=== PATIENT | female | born 1950 | race Caucasian/White ===

== ENCOUNTER → 2017-08-03 | Outpatient (CLI) | payer MEDICARE ==
[2014-10-27 19:47] VITALS: BP 174/95
[~2017-08-03] MED LIST: HUMALIN; LISI-334 PO; LISI-338 PO; LOVA20TA2 PO
[2017-08-03 11:30] LABS: BASO % 1 % (0-3); EOS # 0.1 x10^3/uL (0.0-0.7); EOS % 3 % (0-3); HEMOGLOBIN 10.7 g/dL (12.0-15.5); LYMPH # 1.3 x10^3/uL (1.0-4.8); LYMPH % 23 % (24-48); MEAN CORPUSCULAR HEMOGLOBIN 28 pg (25-35); MEAN CORPUSCULAR HGB CONC 33 g/dL (31-37); MEAN CORPUSCULAR VOLUME 84 fL (79-100); MONO # 0.4 x10^3/uL (0.0-1.1); MONO % 8 % (0-9); NEUT # 3.6 x10^3uL (1.8-7.7); NEUT % 66 % (31-73); PLATELET COUNT 155 x10^3/uL (140-400); RED BLOOD COUNT 3.83 x10^6/uL (3.50-5.40); RED CELL DISTRIBUTION WIDTH 14.6 % (11.5-14.5); WHITE BLOOD COUNT 5.4 x10^3/uL (4.0-11.0)
[2017-08-03 11:35] LABS: ALBUMIN 3.8 g/dL (3.4-5.0); CALCIUM 9.6 mg/dL (8.5-10.1); CREATININE 1.9 mg/dL (0.6-1.0); GFR 26.4; MAGNESIUM 2.4 mg/dL (1.8-2.4); PHOSPHORUS 3.1 mg/dL (2.6-4.7)
[2017-08-05 12:08] LABS: CALCIUM PTH 9.8 mg/dL (8.7-10.3); PTH INTACT 34 pg/mL (15-65)
== END | disposition home or self-care (01) ==
LOC: LAB 09:49
PROVIDERS: ATTEND Internal Medicine Nephrology
DX: I12.9 Hypertensive chronic kidney disease with stage 1 through stage 4 chronic kidney disease, or unspecified chronic kidney disease (principal); E11.22 Type 2 diabetes mellitus with diabetic chronic kidney disease; N18.3 Chronic kidney disease, stage 3 (moderate); E55.9 Vitamin D deficiency, unspecified; D63.1 Anemia in chronic kidney disease; Z68.32 Body mass index [BMI] 32.0-32.9, adult
CPT/HCPCS: 36415; 80069; 82306; 82728; 83540; 83550; 83735; 83970; 85025

== ENCOUNTER → 2018-05-31 | Outpatient (CLI) | payer MEDICARE ==
[2014-10-27 19:47] VITALS: BP 174/95
[2018-05-31 13:07] LABS: BASO % 1 % (0-3); EOS # 0.1 x10^3/uL (0.0-0.7); EOS % 3 % (0-3); HEMATOCRIT 29.9 % (36.0-47.0); HEMOGLOBIN 9.9 g/dL (12.0-15.5); LYMPH # 1.2 x10^3/uL (1.0-4.8); LYMPH % 25 % (24-48); MEAN CORPUSCULAR HEMOGLOBIN 28 pg (25-35); MEAN CORPUSCULAR HGB CONC 33 g/dL (31-37); MEAN CORPUSCULAR VOLUME 85 fL (79-100); MONO # 0.4 x10^3/uL (0.0-1.1); MONO % 9 % (0-9); NEUT % 63 % (31-73); PLATELET COUNT 164 x10^3/uL (140-400); RED CELL DISTRIBUTION WIDTH 13.6 % (11.5-14.5); WHITE BLOOD COUNT 4.8 x10^3/uL (4.0-11.0)
[2018-05-31 13:13] LABS: ALBUMIN 3.6 g/dL (3.4-5.0); CALCIUM 9.5 mg/dL (8.5-10.1); CREATININE 2.1 mg/dL (0.6-1.0); GFR 23.5; MAGNESIUM 2.5 mg/dL (1.8-2.4); PHOSPHORUS 4.3 mg/dL (2.6-4.7); POTASSIUM 4.1 mmol/L (3.5-5.1)
[2018-06-01 06:10] LABS: CALCIUM PTH 9.9 mg/dL (8.7-10.3); PTH INTACT 27 pg/mL (15-65)
== END | disposition home or self-care (01) ==
LOC: LAB 12:19
PROVIDERS: ATTEND Internal Medicine Nephrology
DX: I12.9 Hypertensive chronic kidney disease with stage 1 through stage 4 chronic kidney disease, or unspecified chronic kidney disease (principal); E11.22 Type 2 diabetes mellitus with diabetic chronic kidney disease; N18.4 Chronic kidney disease, stage 4 (severe); D63.1 Anemia in chronic kidney disease; D50.9 Iron deficiency anemia, unspecified; E55.9 Vitamin D deficiency, unspecified; Z68.31 Body mass index [BMI] 31.0-31.9, adult
CPT/HCPCS: 36415; 80069; 82306; 82728; 83540; 83550; 83735; 83970; 85025

== ENCOUNTER → 2019-01-17 | Outpatient (CLI) | payer MEDICARE ==
[2014-10-27 19:47] VITALS: BP 174/95
[2019-01-17 13:25] LABS: BASO % 1 % (0-3); EOS # 0.1 x10^3/uL (0.0-0.7); EOS % 3 % (0-3); HEMATOCRIT 31.5 % (36.0-47.0); HEMOGLOBIN 10.3 g/dL (12.0-15.5); LYMPH # 1.1 x10^3/uL (1.0-4.8); LYMPH % 27 % (24-48); MEAN CORPUSCULAR HEMOGLOBIN 28 pg (25-35); MEAN CORPUSCULAR HGB CONC 33 g/dL (31-37); MEAN CORPUSCULAR VOLUME 87 fL (79-100); MONO # 0.4 x10^3/uL (0.0-1.1); MONO % 10 % (0-9); NEUT # 2.4 x10^3uL (1.8-7.7); NEUT % 59 % (31-73); PLATELET COUNT 138 x10^3/uL (140-400); RED BLOOD COUNT 3.64 x10^6/uL (3.50-5.40); RED CELL DISTRIBUTION WIDTH 13.8 % (11.5-14.5); WHITE BLOOD COUNT 4.1 x10^3/uL (4.0-11.0)
[2019-01-17 13:33] LABS: ALBUMIN 3.7 g/dL (3.4-5.0); CALCIUM 10.1 mg/dL (8.5-10.1); CREATININE 2.2 mg/dL (0.6-1.0); GFR 22.2; MAGNESIUM 2.9 mg/dL (1.8-2.4); PHOSPHORUS 3.6 mg/dL (2.6-4.7); POTASSIUM 4.1 mmol/L (3.5-5.1)
[2019-01-18 10:13] LABS: CALCIUM PTH 9.5 mg/dL (8.7-10.3); CREATININE PTH 1.96 mg/dL (0.57-1.00); PTH INTACT 27 pg/mL (15-65)
== END | disposition home or self-care (01) ==
LOC: LAB 12:11
PROVIDERS: ATTEND Nurse Practitioner Adult Health
DX: I12.9 Hypertensive chronic kidney disease with stage 1 through stage 4 chronic kidney disease, or unspecified chronic kidney disease (principal); E11.22 Type 2 diabetes mellitus with diabetic chronic kidney disease; N18.4 Chronic kidney disease, stage 4 (severe); D63.1 Anemia in chronic kidney disease; D50.9 Iron deficiency anemia, unspecified; E55.9 Vitamin D deficiency, unspecified; Z68.32 Body mass index [BMI] 32.0-32.9, adult
CPT/HCPCS: 36415; 80069; 82728; 83540; 83550; 83735; 83970; 85025

== ENCOUNTER → 2019-08-01 | Outpatient (CLI) | payer MEDICARE ==
[2014-10-27 19:47] VITALS: BP 174/95
[2019-08-01 10:46] LABS: ALBUMIN 3.8 g/dL (3.4-5.0); CALCIUM 9.6 mg/dL (8.5-10.1); CREATININE 1.8 mg/dL (0.6-1.0); PHOSPHORUS 3.3 mg/dL (2.6-4.7); POTASSIUM 3.8 mmol/L (3.5-5.1)
[2019-08-01 10:53] LABS: HEMATOCRIT 31.7 % (36.0-47.0); HEMOGLOBIN 10.2 g/dL (12.0-15.5)
[2019-08-01 17:17] LABS: CREATININE,RANDOM URINE 85.4 mg/dL (Not Establ.)
[2019-08-01 19:07] LABS: CREATININE PTH 1.77 mg/dL (0.57-1.00); PTH INTACT 34 pg/mL (15-65)
[2019-08-02 00:07] LABS: MICROALB RD UR 39.3 ug/mL (Not Estab.)
== END | disposition home or self-care (01) ==
LOC: LAB 09:13
PROVIDERS: ATTEND Internal Medicine Nephrology
DX: I12.9 Hypertensive chronic kidney disease with stage 1 through stage 4 chronic kidney disease, or unspecified chronic kidney disease (principal); N18.4 Chronic kidney disease, stage 4 (severe); Z68.31 Body mass index [BMI] 31.0-31.9, adult
CPT/HCPCS: 36415; 80069; 82043; 82306; 82570; 83970; 84156; 85014; 85018

== ENCOUNTER → 2020-01-16 | Outpatient (CLI) | payer MEDICARE ==
[2014-10-27 19:47] VITALS: BP 174/95
[2020-01-16 11:44] LABS: ALBUMIN 3.7 g/dL (3.4-5.0); CALCIUM 9.5 mg/dL (8.5-10.1); CREATININE 2.2 mg/dL (0.6-1.0); GFR 22.1; PHOSPHORUS 4.2 mg/dL (2.6-4.7); POTASSIUM 3.5 mmol/L (3.5-5.1)
[2020-01-16 11:46] LABS: HEMATOCRIT 27.8 % (36.0-47.0); HEMOGLOBIN 9.1 g/dL (12.0-15.5)
[2020-01-16 15:53] LABS: CREATININE,RANDOM URINE 96.6 mg/dL (Not Establ.)
[2020-01-16 17:07] LABS: MICROALB RD UR 17.4 ug/mL (Not Estab.)
== END | disposition home or self-care (01) ==
LOC: LAB 10:22
PROVIDERS: ATTEND Nurse Practitioner Adult Health
DX: I12.9 Hypertensive chronic kidney disease with stage 1 through stage 4 chronic kidney disease, or unspecified chronic kidney disease (principal); N18.4 Chronic kidney disease, stage 4 (severe); D63.1 Anemia in chronic kidney disease; E11.22 Type 2 diabetes mellitus with diabetic chronic kidney disease; E55.9 Vitamin D deficiency, unspecified; Z79.4 Long term (current) use of insulin; Z68.32 Body mass index [BMI] 32.0-32.9, adult
CPT/HCPCS: 36415; 80069; 82043; 82570; 82728; 83540; 83550; 84156; 85014; 85018

== ENCOUNTER → 2020-03-14 | Outpatient (CLI) | payer MEDICARE ==
[2014-10-27 19:47] VITALS: BP 174/95
[2020-03-14 10:53] LABS: HEMATOCRIT 22.9 % (36.0-47.0); HEMOGLOBIN 7.3 g/dL (12.0-15.5)
== END | disposition home or self-care (01) ==
LOC: LAB 09:49
PROVIDERS: ATTEND Nurse Practitioner Adult Health
DX: I12.9 Hypertensive chronic kidney disease with stage 1 through stage 4 chronic kidney disease, or unspecified chronic kidney disease (principal); N18.4 Chronic kidney disease, stage 4 (severe); E11.22 Type 2 diabetes mellitus with diabetic chronic kidney disease; D63.1 Anemia in chronic kidney disease; E55.9 Vitamin D deficiency, unspecified; Z79.4 Long term (current) use of insulin
CPT/HCPCS: 36415; 82728; 83540; 83550; 85014; 85018

== ENCOUNTER 2020-03-31 07:23 | Emergency (ER) | payer MEDICARE ==
[~2020-03-31] VITALS: Ht 165.1 cm; Wt 95.5 kg
[2020-03-31 07:36] VITALS: BP 145/65
--- NOTE | 2020-03-31 07:36 | PHYS DOC ---
Past History Past Medical History: Other Past Surgical History: Other Alcohol Use: None Drug Use: None General Adult EDM: Chief Complaint: WRIST PAIN HPI: HPI: History obtained from the patient. Patient is a 69-year-old female who presents with chief complaint of right wrist pain status post mechanical fall 4 days ago. She states she was attempting to sit down in her chair when the chair slipped out from underneath her. States she fell backwards bracing herself with her right hand. She has noted right wrist pain and swelling. She has tried Tylenol at home with minimal relief. Denies striking her head or LOC. States she has been ambulatory. She is right-handed. States her usage of right hand has been limited due to the pain and swelling. States pain is worse over the dorsal aspect of her right wrist. She notes the pain is aching in nature. She states movement makes the pain worse. Denies numbness, tingling, weakness. No other complaints. Review of Systems: Review of Systems: Constitutional: Denies fever or chills Eyes: Denies change in visual acuity HENT: Denies nasal congestion or sore throat Respiratory: Denies cough or shortness of breath Cardiovascular: Denies chest pain or edema GI: Denies abdominal pain, nausea, vomiting, bloody stools or diarrhea : Denies dysuria Musculoskeletal: Positive for wrist pain Integument: Denies rash Neurologic: Denies headache, focal weakness or sensory changes Endocrine: Denies polyuria or polydipsia Lymphatic: Denies swollen glands Psychiatric: Denies depression or anxiety Heart Score: Risk Factors: Risk Factors: DM, Current or recent (<one month) smoker, HTN, HLP, family history of CAD, obesity. Risk Scores: Score 0 - 3: 2.5% MACE over next 6 weeks - Discharge Home Score 4 - 6: 20.3% MACE over next 6 weeks - Admit for Clinical Observation Score 7 - 10: 72.7% MACE over next 6 weeks - Early Invasive Strategies Allergies: Allergies: Allergies Coded Allergies Type Severity Reaction Last Updated Verified No Known Drug Allergies 10/27/14 No Physical Exam: PE: Constitutional: Well developed, well nourished, no acute distress, non-toxic appearance. [] HENT: Normocephalic, atraumatic, bilateral external ears normal, oropharynx moist, no oral exudates, nose normal. [] Eyes: PERRLA, EOMI, conjunctiva normal, no discharge. [] Neck: Normal range of motion, no tenderness, supple, no stridor. [] Cardiovascular:Heart rate regular rhythm, no murmur [] Lungs & Thorax: Bilateral breath sounds clear to auscultation [] Abdomen: soft, no tenderness, no masses, no pulsatile masses. [] Skin: Warm, dry, no erythema, no rash. [] Back: No tenderness, no CVA tenderness. [] Extremities: Swelling noted to the dorsum of the right hand and wrist. Tenderness palpation over the distal ulna and radius. Cardinal hand movements intact. +2-4 radial pulse. No elbow pain or swelling noted. Neurologic: Alert and oriented X 3, normal motor function, normal sensory function, no focal deficits noted. [] Psychologic: Affect normal, judgement normal, mood normal. [] Current Patient Data: Vital Signs: Vital Signs Date Time Temp Pulse Resp B/P (MAP) Pulse Ox O2 Delivery O2 Flow Rate FiO2 03/31/20 07:36 97.9 63 18 145/65 (08) 94 EKG: EKG: [] Radiology/Procedures: Radiology/Procedures: [place] [address] IMAGING REPORT Signed PATIENT: EARLENE MONZON I ACCOUNT: [id number] : 1950 LOCATION: ER AGE: 69 SEX: F EXAM STATUS: REG ER ORD. PHYSICIAN: CELSO LOVELL DO REASON: r wrist pain s/p fall PROCEDURE: WRIST 3V RIGHT EXAMINATION: WRIST 3V RIGHT CLINICAL HISTORY: Right wrist pain following fall TECHNIQUE: WRIST 3V RIGHT Number of Images/Views: 3 COMPARISON: None FINDINGS: Mildly comminuted fracture through the distal radial metaphysis with mild dorsal impaction. Minimally displaced ulnar styloid fracture. Carpal alignment maintained. Mild soft tissue swelling. Vascular calcifications. IMPRESSION: Mildly comminuted and impacted distal radius fracture. Minimally displaced ulnar styloid fracture. Electronically signed by: Lopez Ashford DO (03/31/2020 7:55 AM) [id number] DICTATED AND SIGNED BY: LOPEZ ASHFORD DO DATE: 03/31/20 0755 CC: WALT NOLASCO; CELSO LOVELL DO ~ [] Course & Med Decision Making: Course & Med Decision Making Pertinent Labs and Imaging studies reviewed. (See chart for details) [] Patient is a right-handed 69-year-old female who presents with chief complaint of right wrist pain status post fall 4 days ago. Noted to have a mildly comminuted and minimally displaced distal radius fracture with ulnar styloid fracture. Patient was placed in sugar tong splint. Given the minimal displacement reduction was not indicated in the emergency department. I did discuss the case with orthopedic surgeon . They recommended clinic follow-up. She will be provided a resource to follow-up with him in clinic. Return precautions discussed and understood. She will be discharged home with pain medication. Instructed to follow-up with her primary care physician in the next 2 to 3 days. Stable for discharge home. Dragon Disclaimer: Dragon Disclaimer: This electronic medical record was generated, in whole or in part, using a voice recognition dictation system. Departure Departure: Impression: Primary Impression: Distal radius fracture, right Qualified Codes: S52.501A - Unspecified fracture of the lower end of right radius, initial encounter for closed fracture Additional Impression: Fracture of ulnar styloid Qualified Codes: S52.614A - Nondisplaced fracture of right ulna styloid process, initial encounter for closed fracture Disposition: 01 HOME/RESIDENCE PRIOR TO ADM Condition: STABLE Referrals: WALT NOLASCO (PCP) SUNG WOOD II, MD Patient Instructions: Colles Fracture Additional Instructions: Please call orthopedic surgery clinic tomorrow to schedule appointment. Scripts Hydrocodone Bit/Acetaminophen (NORCO 5-325 TABLET) 1 Each Tablet 1-2 TAB PO Q4-6HRS for pain, #10 TAB Prov: CELSO LOVELL DO 03/31/20 CELSO LOVELL DO Mar 31, 2020 07:36
[2020-03-31] MEDS ORDERED: oxyCODONE IR 5 MG TABLET PO ONE (07:45)
--- NOTE | 2020-03-31 07:58 | RAD ---
EXAMINATION: WRIST 3V RIGHT CLINICAL HISTORY: Right wrist pain following fall TECHNIQUE: WRIST 3V RIGHT Number of Images/Views: 3 COMPARISON: None FINDINGS: Mildly comminuted fracture through the distal radial metaphysis with mild dorsal impaction. Minimally displaced ulnar styloid fracture. Carpal alignment maintained. Mild soft tissue swelling. Vascular calcifications. IMPRESSION: Mildly comminuted and impacted distal radius fracture. Minimally displaced ulnar styloid fracture. Electronically signed by: Lopez Covington DO (03/31/2020 7:55 AM) [id number]
[2020-03-31] MEDS ORDERED: HYDR-3165 PO (08:05)
== END 2020-03-31 08:27 | disposition home or self-care (01) ==
LOC: ER 07:23
DX: S52.501A Unspecified fracture of the lower end of right radius, initial encounter for closed fracture (principal); S52.611A Displaced fracture of right ulna styloid process, initial encounter for closed fracture; W18.39XA Other fall on same level, initial encounter; Y93.89 Activity, other specified; Y92.89 Other specified places as the place of occurrence of the external cause; Y99.8 Other external cause status
CPT/HCPCS: 29125; 73110; 82947; 99283; 99284

== ENCOUNTER 2020-06-03 04:11 | Emergency (ER) | payer MEDICARE ==
[~2020-06-03] VITALS: Ht 165.1 cm; Wt 75.0 kg
[~2020-06-03 04:11] MED LIST changes: +HYDR-3165 PO
--- NOTE | 2020-06-03 04:17 | PHYS DOC ---
Past History Past Medical History: Anemia, Anxiety, Arthritis, Diabetes, High Cholesterol, Hypertension, UTI, Other Additional Past Medical Histor: blind (JUDY NDIAYE MD) Past Medical History: Diabetes (KAYLEN MICHEL MD) Past Surgical History: Hip Replacement, Other Past Surgical History Multiple orthopedic surgeries-right wrist, right hip, (JUDY NDIAYE MD) Alcohol Use: None Drug Use: None (JUDY NDIAYE MD) Drug Use: None (KAYLEN MICHEL MD) General Adult EDM: Chief Complaint: SYNCOPE HPI: HPI: ".. I got up and was on the way to the bathroom.. and that is the last thing I remember.. the next thing I remember I was on the floor and my Rt. knee was hurting..." Patient is a 69 year old female who presents with above hx and complaints of syncope. Patient has complaints of right leg pain and has obvious edema to right knee. Was able to do a straight leg lift on the right with discomfort. Distal capillary refill is equal to left. Patient denies any changes of her chronic meds. Does have past medical history of osteoporosis, anemia, thrombocytopenia, diabetes, urinary tract infections, coronary artery disease, and deconditioning. Patient previously followed with Dr. Mcneil. but now follows with Dr. Cespedes. Patient has followed with for previous orthopedic surgeries. Patient denies any recent travel or specific ill contacts. (JUDY NDIAYE MD) HPI: 69-year-old female who went to go to the bathroom this evening had a syncope event and landed on her right knee. Patient describes moderate to severe right knee pain that is worse with palpation and range of motion. Pain is nonradiating. Pain described as throbbing in nature and constant. (KAYLEN MICHEL MD) Review of Systems: Review of Systems: Constitutional: Denies fever or chills Eyes: Denies change in visual acuity HENT: Denies nasal congestion or sore throat Respiratory: Denies cough or shortness of breath Cardiovascular: Denies chest pain or edema . Complaints of syncope GI: Denies abdominal pain, nausea, vomiting, bloody stools or diarrhea : Denies dysuria Musculoskeletal: History of chronic joint pain. Complains of acute pain in her right knee Integument: Denies rash Neurologic: Denies headache, focal weakness or sensory changes Endocrine: Denies polyuria or polydipsia Lymphatic: Denies swollen glands Psychiatric: History of anxiety (JUDY NDIAYE MD) Review of Systems: Constitutional: Denies fever or chills Eyes: Denies change in visual acuity HENT: Denies sore throat Respiratory: Denies cough or shortness of breath Cardiovascular: Denies chest pain or edema GI: Denies abdominal pain, nausea, vomiting, or diarrhea : Denies hematuria Musculoskeletal: Denies back pain but has right knee pain Integument: Denies rash Neurologic: Denies headache or focal weakness Psychiatric: Denies depression or anxiety (KAYLEN MICHEL MD) Family History: Family History: Noncontributory to presentation (JUDY NDIAYE MD) Current Medications: Current Meds: See nursing for home meds (JUDY NDIAYE MD) Current Meds: Current Medications Lactated Ringer's 1,000 ml @ 100 mls/hr Q10H IV Last administered on 06/03/20at 05:08; Start 06/03/20 at 05:00; Stop 06/03/20 at 14:59 Morphine Sulfate (Morphine 10mg Syringe) 10 mg 1X ONCE SQ Last administered on 06/03/20at 05:09; Start 06/03/20 at 05:00; Stop 06/03/20 at 05:01; Status DC Ceftriaxone Sodium 1 gm/ Sodium Chloride 50 ml @ 100 mls/hr 1X ONCE IV ; Start 06/03/20 at 07:00; Stop 06/03/20 at 07:29 Sodium Chloride 50 ml @ As Directed STK-MED ONCE .ROUTE ; Start 06/03/20 at 06:3 3; Stop 06/03/20 at 06:33; Status DC Ceftriaxone Sodium (Rocephin) 1 gm STK-MED ONCE .ROUTE ; Start 06/03/20 at 06:33; Stop 06/03/20 at 06:33; Status DC Active Scripts Active Haslet 5-325 Tablet (Hydrocodone Bit/Acetaminophen) 1 Each Tablet 1-2 Tab PO Q4- 6HRS Reported Lisinopril 5 Mg Tablet 1 Tab PO DAILY [humalin pen 70/30] TID Lovastatin 20 Mg Tablet 1 Tab PO DAILY (KAYLEN MICHEL MD) Allergies: Allergies: Allergies Coded Allergies Type Severity Reaction Last Updated Verified No Known Drug Allergies 5/2/15 No (JUDY NDIAYE MD) Physical Exam: PE: Constitutional: In moderate acute distress, non-toxic appearance. [] HENT: Normocephalic, atraumatic, bilateral external ears normal, oropharynx moist, no oral exudates, nose normal. [] Eyes: PERRLA, EOMI, conjunctiva normal, no discharge. [] Neck: Normal range of motion, no tenderness, supple, no stridor. [] Cardiovascular: Tachycardia heart rate regular rhythm, no murmur, PMI to the left Lungs & Thorax: Bilateral breath sounds equal apex with scattered wheezes and basilar crackles on auscultation [] Abdomen: Bowel sounds normal, soft, no tenderness, no masses, no pulsatile masses. Obese. Skin: Warm, dry, no erythema, no rash. Poor turgor Back: No tenderness, no CVA tenderness. [] Extremities: Right knee tenderness, no cyanosis, no clubbing, ROM decreased in right knee, bilateral ankle edema. Marked edema right knee Neurologic: Alert and oriented X 3, moves all extremities on request, does have distal sensory, no new focal deficits noted. [] Psychologic: Affect anxious, judgement normal, mood normal. [] (JUDY NDIAYE MD) PE: Constitutional: Well developed, well nourished, no acute distress, non-toxic appearance. HENT: No trismus, external ears normal Eyes: Conjunctiva clear, Neck: Normal range of motion, no tenderness, supple, no stridor. Cardiovascular: Regular rate/rhythm, peripheral pulse intact, PRICER intact Lungs & Thorax: No respiratory distress Abdomen: No distension Skin: Diffuse: Intact, no rash Back: Full ROM Extremities: Significant tenderness and swelling to right knee and proximal tib- fib area, limited range of motion due to pain. Compartments soft. Neurovascular intact distally. Neurologic: Alert and oriented X 3, normal motor function, , no focal deficits noted. Psychologic: Affect normal, judgement normal, mood normal. (KAYLEN MICHEL MD) Current Patient Data: Labs: Laboratory Tests Test 06/03/20 04:40 06/03/20 05:04 06/03/20 05:15 White Blood Count 7.4 x10^3/uL Red Blood Count 3.63 x10^6/uL Hemoglobin 9.9 g/dL Hematocrit 30.9 % Mean Corpuscular Volume 85 fL Mean Corpuscular Hemoglobin 27 pg Mean Corpuscular Hemoglobin Concent 32 g/dL Red Cell Distribution Width 19.4 % Platelet Count 149 x10^3/uL Neutrophils (%) (Auto) 76 % Lymphocytes (%) (Auto) 13 % Monocytes (%) (Auto) 9 % Eosinophils (%) (Auto) 1 % Basophils (%) (Auto) 1 % Neutrophils # (Auto) 5.6 x10^3uL Lymphocytes # (Auto) 1.0 x10^3/uL Monocytes # (Auto) 0.7 x10^3/uL Eosinophils # (Auto) 0.1 x10^3/uL Basophils # (Auto) 0.0 x10^3/uL Platelet Estimate Adequate Anisocytosis Slight Microcytosis Slight Prothrombin Time 10.4 SEC Prothromb Time International Ratio 1.0 Activated Partial Thromboplast Time 24 SEC D-Dimer (Ching) 17.08 mg/L Sodium Level 144 mmol/L Potassium Level 3.6 mmol/L Chloride Level 104 mmol/L Carbon Dioxide Level 31 mmol/L Anion Gap 9 Blood Urea Nitrogen 47 mg/dL Creatinine 2.0 mg/dL Estimated GFR (Cockcroft-Gault) 24.7 Glucose Level 179 mg/dL Calcium Level 9.5 mg/dL Magnesium Level 1.9 mg/dL Total Bilirubin 0.3 mg/dL Direct Bilirubin 0.1 mg/dL Aspartate Amino Transf (AST/SGOT) 29 U/L Alanine Aminotransferase (ALT/SGPT) 26 U/L Alkaline Phosphatase 87 U/L Creatine Kinase 276 U/L Troponin I Quantitative 0.137 ng/mL IQ-Vim-Z-Type Natriuretic Peptide 835 pg/mL Total Protein 7.7 g/dL Albumin 3.6 g/dL Lipase 94 U/L Glucose (Fingerstick) 168 mg/dL Urine Collection Type U cath Urine Color Yellow Urine Clarity Cloudy Urine pH 7.0 Urine Specific [place] 1.020 Urine Protein 100 mg/dl Urine Glucose (UA) 100 mg/dL Urine Ketones (Stick) Neg mg/dL Urine Blood Large Urine Nitrite Neg Urine Bilirubin Neg Urine Urobilinogen Dipstick 0.2 mg/dL Urine Leukocyte Esterase Large Urine RBC 1-2 /HPF Urine WBC >40 /HPF Urine Squamous Epithelial Cells None /LPF Urine Bacteria Many /HPF Urine Opiates Screen Neg Urine Methadone Screen Neg Urine Barbiturates Neg Urine Phencyclidine Screen Neg Urine Amphetamine/Methamphetamine Neg Urine Benzodiazepines Screen Neg Urine Cocaine Screen Neg Urine Cannabinoids Screen Neg Urine Ethyl Alcohol Neg Current Medications Medications (Trade) Dose Ordered Sig/April Route PRN Reason Start Time Stop Time Status Last Admin Dose Admin Lactated Ringer's 1,000 ml @ 100 mls/hr Q10H IV 06/03/20 05:00 06/03/20 14:59 06/03/20 05:08 Morphine Sulfate (Morphine 10mg Syringe) 10 mg 1X ONCE SQ 06/03/20 05:00 06/03/20 05:01 DC 06/03/20 05:09 Ceftriaxone Sodium 1 gm/ Sodium Chloride 50 ml @ 100 mls/hr 1X ONCE IV 06/03/20 07:00 06/03/20 07:29 Sodium Chloride 50 ml @ As Directed STK-MED ONCE .ROUTE 06/03/20 06:33 06/03/20 06:33 DC Ceftriaxone Sodium (Rocephin) 1 gm STK-MED ONCE .ROUTE 06/03/20 06:33 06/03/20 06:33 DC Vital Signs: Vital Signs Date Time Temp Pulse Resp B/P (MAP) Pulse Ox O2 Delivery O2 Flow Rate FiO2 06/03/20 05:09 18 98 Room Air 06/03/20 04:11 97.8 86 110/53 (72) (KAYLEN MICHEL MD) EKG: EKG: Pending at shift change [] (JUDY NDIAYE MD) EKG: EKG interpreted by ks normal sinus rhythm with rate 86 normal axis, first-degree AV block, nonspecific ST changes (KAYLEN MICHEL MD) Radiology/Procedures: Radiology/Procedures: X-rays pending at shift change[] (JUDY NDIAYE MD) Radiology/Procedures: [place] [address] IMAGING REPORT Signed PATIENT: EARLENE MONZON I ACCOUNT: [id number] : 1950 LOCATION: ER AGE: 69 SEX: F EXAM STATUS: REG ER ORD. PHYSICIAN: JUDY NDIAYE MD REASON: fall, pain PROCEDURE: PORTABLE CHEST 1V PORTABLE CHEST 1V History: Reason: fall, pain / Spl. Instructions: / History: Comparison: October 27, 2014 Findings: No consolidation or pleural effusion. Normal heart size. No pneumothorax. Glenohumeral DJD. Impression: 1. No acute cardiopulmonary process. Electronically signed by: Ricky Ding DO (06/03/2020 6:37 AM) [facility] DICTATED AND SIGNED BY: RICKY DING DO DATE: 06/03/20636 CC: KAYLEN MICHEL MD; JUDY NDIAYE MD; WALT CESPEDES ~[facility] [address] [place] [address] IMAGING REPORT Signed PATIENT: EARLENE MONZON I ACCOUNT: [id number] : 1950 LOCATION: ER AGE: 69 SEX: F EXAM STATUS: REG ER ORD. PHYSICIAN: JUDY NDIAYE MD REASON: fall, pain PROCEDURE: KNEE RIGHT 3V TIBIA FIBULA RIGHT, KNEE RIGHT 3V History: Reason: fall, pain / Spl. Instructions: / History: Technique: 2 views right tibia and fibula and 3 views right knee. Comparison: None. Findings: Acute comminuted right proximal tibial fracture. Comminuted right proximal fibular fracture. There is adjacent soft tissue swelling. No significant joint effusion. Mild patellar spurring. Vascular calcifications. Internal fixation prior right distal fibular and medial malleolus fractures. Impression: 1. Acute comminuted right proximal tibial and fibular fractures. Electronically signed by: Ricky Ding DO (06/03/2020 6:37 AM) [facility] DICTATED AND SIGNED BY: RICKY DING DO DATE: 06/03/20636 CC: KAYLEN MICHEL MD; JUDY NDIAYE MD; WALT CESPEDES [facility] [address] [address] IMAGING REPORT Signed PATIENT: EARLENE MONZON I ACCOUNT: [id number] : 1950 LOCATION: ER AGE: 69 SEX: F EXAM STATUS: REG ER ORD. PHYSICIAN: KAYLEN MICHEL MD REASON: RIGHT PROX TIB/FIB FX. EVALUATE THE FRACTURE PROCEDURE: CT LOWER EXTREMITY WO RIGHT CT LOWER EXTREMITY WO RIGHT DATE: 06/03/2020 6:29 AM INDICATION: Reason: RIGHT PROX TIB/FIB FX. EVALUATE THE FRACTURE / Spl. Instructions: / History: TECHNIQUE: Multidetector helical CT scan through the right knee was performed. Coronal and sagittal 2 D reconstructions were generated. Images were reviewed on the PACS workstation at soft tissue and osseous window settings. One or more of the following individualized dose reduction techniques were utilized for this examination: 1. Automated exposure control 2. Adjustment of the mA and/or kV according to patient size 3. Use of iterative reconstruction technique COMPARISON: Radiograph 06/03/2020 FINDINGS: Acute comminuted fracture of the proximal tibial metaphysis with minimal apex anterior angulation and mild displacement of several fracture fragments. A nondisplaced fracture line extends superiorly into the intercondylar eminence. Acute proximal fibular fracture with mild impaction/displacement. Additional chronic healed proximal fibular fracture. Small joint effusion. Mild tricompartmental degenerative changes. Atherosclerotic vascular calcifications. IMPRESSION: 1. Acute comminuted and mildly displaced proximal tibial metaphysis fracture. A nondisplaced fracture line extends into the intercondylar eminence. 2. Acute mildly displaced proximal fibular fracture. Electronically signed by: Marcy Rey MD (06/03/2020 7:29 AM) [id number] DICTATED AND SIGNED BY: MARCY REY MD DATE: 06/03/20 0729 CC: KAYLEN MICHEL MD; WALT CESPEDES ~MTH0 0 (KAYLEN MICHEL MD) Heart Score: HEART Score for Chest Pain: HEART Score for Chest Pain Response (Comments) Value History Moderately Suspicious 1 ECG Nonspecific Repolarizatio 1 Age > 65 2 Risk Factors 1 or 2 Risk Factors 1 Troponin >1-<3x Normal Limit 1 Total 6 Risk Factors: Risk Factors: DM, Current or recent (<one month) smoker, HTN, HLP, family history of CAD, obesity. Risk Scores: Score 0 - 3: 2.5% MACE over next 6 weeks - Discharge Home Score 4 - 6: 20.3% MACE over next 6 weeks - Admit for Clinical Observation Score 7 - 10: 72.7% MACE over next 6 weeks - Early Invasive Strategies (JUDY NDIAYE MD) Course & Med Decision Making: Course & Med Decision Making Pertinent Labs and Imaging studies reviewed. (See chart for details) Discussed presentation testing and treatment plan with at shift change. He will make disposition of Pt. Impression: 1. Syncope 2. Right knee- Injury-suspect comminuted fracture tib-fib proximal 3. UTI 4. Elevated D-dimer 17.08 5. Anemia Hg. 9.9 [] (JUDY NDIAYE MD) Course & Med Decision Making 69-year-old female presents with a syncopal event. Patient initially seen by Dr. Ndiaye signed out to me. On my assessment patient only complains of right knee pain and swelling. Patient denies any chest pain or shortness of breath. Patient denies hitting her head and declines a head CT at this time. Patient is neurologically at her baseline. X-ray of the right knee reveals a proximal tibia and fibular fracture. I discussed the case with Dr. Cannon who will admit the patient at [facility]. I discussed the case with Dr. Steel who will consult. Knee immobilizer and CT has been ordered of the right knee. Discussed with Dr. Cannon the patient's elevated D-dimer and need for possible VQ scan. Patient will be unable to get a CT angiogram due to her elevated BUN and creatinine. Patient has elevated troponin, this could be due to her renal insufficiency. Due to the fact she may be a surgical candidate, aspirin has been held. Knee immobilizer was applied by nursing staff to the right leg. Patient reassessed multiple times. Patient declining pain meds at this time. 9:45 AM: Reassessed. Patient declining pain meds. Waiting on bed at [facility]. (KAYLEN MICHEL MD) Elton Disclaimer: Elton Disclaimer: This electronic medical record was generated, in whole or in part, using a voice recognition dictation system. (JUDY NDIAYE MD) Departure Departure: Impression: Primary Impression: Fracture of proximal end of right tibia Additional Impressions: Fracture of proximal end of right fibula Syncope Urinary tract infection Chronic renal failure Disposition: 02 DC/TRF OTHER SHORT TERM HOS ([place]) Condition: STABLE Referrals: WALT CESPEDES (PCP) Elton Disclaimer This chart was dictated in whole or in part using Voice Recognition software in a busy, high-work load, and often noisy Emergency Department environment. It may contain unintended and wholly unrecognized errors or omissions. (JUDY NDIAYE MD) Elton Disclaimer This chart was dictated in whole or in part using Voice Recognition software in a busy, high-work load, and often noisy Emergency Department environment. It may contain unintended and wholly unrecognized errors or omissions. (JUDY NDIAYE MD) JUDY NDIAYE MD Jun 03, 2020 04:17 KAYLEN MICHEL MD Jun 03, 2020 06:42
[2020-06-03] MEDS ORDERED: IV RINGERS SOLUTION,LACTATED 1,000 ML IV SCH (05:00)
[2020-06-03] MEDS ORDERED: MORPHINE SULFATE 10 MG/ML SYRINGE. SQ ONE (05:00)
[2020-06-03 05:05] LABS: BASO % 1 % (0-3); EOS # 0.1 x10^3/uL (0.0-0.7); EOS % 1 % (0-3); HEMATOCRIT 30.9 % (36.0-47.0); HEMOGLOBIN 9.9 g/dL (12.0-15.5); LYMPH % 13 % (24-48); MEAN CORPUSCULAR HEMOGLOBIN 27 pg (25-35); MEAN CORPUSCULAR HGB CONC 32 g/dL (31-37); MEAN CORPUSCULAR VOLUME 85 fL (79-100); MONO # 0.7 x10^3/uL (0.0-1.1); MONO % 9 % (0-9); NEUT # 5.6 x10^3uL (1.8-7.7); NEUT % 76 % (31-73); PLATELET COUNT 149 x10^3/uL (140-400); RED BLOOD COUNT 3.63 x10^6/uL (3.50-5.40); RED CELL DISTRIBUTION WIDTH 19.4 % (11.5-14.5); WHITE BLOOD COUNT 7.4 x10^3/uL (4.0-11.0)
[2020-06-03 05:18] LABS: CALCIUM 9.5 mg/dL (8.5-10.1); GFR 24.7; POTASSIUM 3.6 mmol/L (3.5-5.1)
[2020-06-03 05:22] LABS: ANISOCYTOSIS SLIGHT; MICROCYTOSIS SLIGHT
[2020-06-03 05:23] LABS: PLT ESTIMATE ADEQUATE (ADEQUATE)
[2020-06-03 05:31] LABS: ALBUMIN 3.6 g/dL (3.4-5.0); DIRECT BILIRUBIN 0.1 mg/dL (0.0-0.2); MAGNESIUM 1.9 mg/dL (1.8-2.4); TOTAL BILIRUBIN 0.3 mg/dL (0.2-1.0); TOTAL PROTEIN 7.7 g/dL (6.4-8.2)
[2020-06-03 05:42] LABS: BARBITURATES NEG (NEG); BENZODIAZEPINES NEG (NEG); CANNABINOIDS NEG (NEG); COCAINE NEG (NEG); METHADONE NEG (NEG); OPIATES NEG (NEG); PHENCYCLIDINE NEG (NEG)
[2020-06-03 05:43] LABS: BILIRUBIN,URINE NEG (NEG); CLARITY,URINE CLOUDY; COLOR,URINE YELLOW; GLUCOSE,URINE 100 mg/dL (NEG); NITRITE,URINE NEG (NEG); UROBILINOGEN,URINE 0.2 mg/dL (0.2 mg/dL)
[2020-06-03 05:44] LABS: BACTERIA,URINE MANY /HPF (0-FEW); WBC,URINE >40 /HPF (0-4)
[2020-06-03 05:47] LABS: AMPHETAMINE/METHAMPHETAMINE NEG (NEG)
[2020-06-03] MEDS ORDERED: IV NORMAL SALINE 50ML 50 ML ONE (06:33)
[2020-06-03] MEDS ORDERED: cefTRIAXone SODIUM 1 GM VIAL ONE (06:33)
--- NOTE | 2020-06-03 06:39 | RAD ---
TIBIA FIBULA RIGHT, KNEE RIGHT 3V History: Reason: fall, pain / Spl. Instructions: / History: Technique: 2 views right tibia and fibula and 3 views right knee. Comparison: None. Findings: Acute comminuted right proximal tibial fracture. Comminuted right proximal fibular fracture. There is adjacent soft tissue swelling. No significant joint effusion. Mild patellar spurring. Vascular calcifications. Internal fixation prior right distal fibular and medial malleolus fractures. Impression: 1. Acute comminuted right proximal tibial and fibular fractures. Electronically signed by: Ricky Ding DO (06/03/2020 6:37 AM) [facility]
--- NOTE | 2020-06-03 06:39 | RAD ---
TIBIA FIBULA RIGHT, KNEE RIGHT 3V History: Reason: fall, pain / Spl. Instructions: / History: Technique: 2 views right tibia and fibula and 3 views right knee. Comparison: None. Findings: Acute comminuted right proximal tibial fracture. Comminuted right proximal fibular fracture. There is adjacent soft tissue swelling. No significant joint effusion. Mild patellar spurring. Vascular calcifications. Internal fixation prior right distal fibular and medial malleolus fractures. Impression: 1. Acute comminuted right proximal tibial and fibular fractures. Electronically signed by: Ricky Ding DO (06/03/2020 6:37 AM) [facility]
--- NOTE | 2020-06-03 06:40 | RAD ---
PORTABLE CHEST 1V History: Reason: fall, pain / Spl. Instructions: / History: Comparison: October 27, 2014 Findings: No consolidation or pleural effusion. Normal heart size. No pneumothorax. Glenohumeral DJD. Impression: 1. No acute cardiopulmonary process. Electronically signed by: Ricky Ding DO (06/03/2020 6:37 AM) [facility] [place]
--- NOTE | 2020-06-03 07:32 | RAD ---
CT LOWER EXTREMITY WO RIGHT DATE: 06/03/2020 6:29 AM INDICATION: Reason: RIGHT PROX TIB/FIB FX. EVALUATE THE FRACTURE / Spl. Instructions: / History: TECHNIQUE: Multidetector helical CT scan through the right knee was performed. Coronal and sagittal 2 D reconstructions were generated. Images were reviewed on the PACS workstation at soft tissue and osseous window settings. One or more of the following individualized dose reduction techniques were utilized for this examination: 1. Automated exposure control 2. Adjustment of the mA and/or kV according to patient size 3. Use of iterative reconstruction technique COMPARISON: Radiograph 06/03/2020 FINDINGS: Acute comminuted fracture of the proximal tibial metaphysis with minimal apex anterior angulation and mild displacement of several fracture fragments. A nondisplaced fracture line extends superiorly into the intercondylar eminence. Acute proximal fibular fracture with mild impaction/displacement. Additional chronic healed proximal fibular fracture. Small joint effusion. Mild tricompartmental degenerative changes. Atherosclerotic vascular calcifications. IMPRESSION: 1. Acute comminuted and mildly displaced proximal tibial metaphysis fracture. A nondisplaced fracture line extends into the intercondylar eminence. 2. Acute mildly displaced proximal fibular fracture. Electronically signed by: Akash De Jesus MD (06/03/2020 7:29 AM) [id number]
--- NOTE | 2020-06-03 08:32 | EKG ---
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
[2020-06-03] MEDS ORDERED: ONDANSETRON PF 4 MG/2 ML VIAL. IVP ONE (14:15)
[2020-06-03] MEDS ORDERED: MORPHINE SULFATE 4 MG/ML DISP.SYRIN. IV ONE (14:15)
[2020-06-03 14:26] VITALS: BP 129/61
[2020-06-04] MEDS ORDERED: HYDROcodone/APAP 5/325MG 1 TAB TABLET PO ONE (11:00)
[2020-06-04] MEDS ORDERED: HYDROcodone/APAP 5/325MG 1 TAB TABLET PO PRN ×2 (11:00)
[2020-06-04] MEDS ORDERED: INSULIN NPH/REG HUM 70/30 300 UNITS/3 ML VIAL. SQ SCH ×2 (11:30→17:00)
[2020-06-05] MEDS ORDERED: LISINOPRIL 5 MG TABLET. PO SCH (09:00)
[2020-06-05] MEDS ORDERED: ENOXAPARIN 40 MG/0.4 ML SYRINGE. SQ SCH (09:00)
[2020-06-05] MEDS ORDERED: NON FORMULARY ITEM (Lovastatin 1 TAB) PO SCH (09:00)
== END 2020-06-03 15:00 | disposition short-term general hospital (02) ==
LOC: ER 04:11
DX: S82.101A Unspecified fracture of upper end of right tibia, initial encounter for closed fracture (principal); S82.831A Other fracture of upper and lower end of right fibula, initial encounter for closed fracture; R55 Syncope and collapse; N39.0 Urinary tract infection, site not specified; I12.9 Hypertensive chronic kidney disease with stage 1 through stage 4 chronic kidney disease, or unspecified chronic kidney disease; N18.9 Chronic kidney disease, unspecified; E11.22 Type 2 diabetes mellitus with diabetic chronic kidney disease; F41.9 Anxiety disorder, unspecified; M19.90 Unspecified osteoarthritis, unspecified site; E11.9 Type 2 diabetes mellitus without complications; E78.00 Pure hypercholesterolemia, unspecified; W18.39XA Other fall on same level, initial encounter; Y93.89 Activity, other specified; Y92.89 Other specified places as the place of occurrence of the external cause; Y99.8 Other external cause status; Z20.828 Contact with and (suspected) exposure to other viral communicable diseases; Z79.899 Other long term (current) drug therapy; Z86.2 Personal history of diseases of the blood and blood-forming organs and certain disorders involving the immune mechanism; Z87.440 Personal history of urinary (tract) infections
CPT/HCPCS: 29505; 36415; 51702; 71045; 73562; 73590; 73700; 80048; 80076; 80307; 81001; 82550; 82947; 83690; 83735; 83880; 84443; 84484; 85025; 85379; 85610; 85730; 87077; 87086; 87186; 87426; 93005; 96361; 96365; 96372; 96375; 99285; C9803; J0696; J2270; J7120; U0003

== ENCOUNTER 2020-06-19 19:42 | Emergency (ER) | payer MEDICARE ==
[~2020-06-19] VITALS: Ht 165.1 cm; Wt 78.1 kg
--- NOTE | 2020-06-19 20:15 | RAD ---
Exam: Chest one view INDICATION: Chest pain TECHNIQUE: Frontal view of the chest Comparisons: 06/03/2020 FINDINGS: The cardiomediastinal silhouette and pulmonary vessels are within normal limits. Patchy airspace disease at the left lung base. No pleural effusion. IMPRESSION: Patchy left basilar airspace disease. May be infectious or inflammatory in etiology. Electronically signed by: Bozena Melgar MD (06/19/2020 8:12 PM) CALLI
[2020-06-19 20:22] LABS: BASO % 1 % (0-3); EOS # 0.1 x10^3/uL (0.0-0.7); EOS % 2 % (0-3); HEMATOCRIT 28.4 % (36.0-47.0); HEMOGLOBIN 9.2 g/dL (12.0-15.5); LYMPH # 1.3 x10^3/uL (1.0-4.8); LYMPH % 27 % (24-48); MEAN CORPUSCULAR HEMOGLOBIN 28 pg (25-35); MEAN CORPUSCULAR HGB CONC 32 g/dL (31-37); MEAN CORPUSCULAR VOLUME 86 fL (79-100); MONO # 0.7 x10^3/uL (0.0-1.1); MONO % 15 % (0-9); NEUT # 2.7 x10^3uL (1.8-7.7); NEUT % 56 % (31-73); PLATELET COUNT 233 x10^3/uL (140-400); RED CELL DISTRIBUTION WIDTH 17.6 % (11.5-14.5); WHITE BLOOD COUNT 4.8 x10^3/uL (4.0-11.0)
--- NOTE | 2020-06-19 20:32 | PHYS DOC ---
Past History Past Medical History: Diabetes Additional Past Medical Histor: blind (ROSENDO TIPTON APRN) Past Surgical History: Hip Replacement, Other (ROSENDO TIPTON APRN) Alcohol Use: None Drug Use: None (ROSENDO TIPTON APRN) General Adult EDM: Chief Complaint: HYPOGLYCEMIA HPI: HPI: Patient is 69 year-old female who presents with hypoglycemia. Patient states she was sitting down to eat dinner, when she felt a sharp pain in the middle of her chest, that went through to her back. Nursing staff called EMS. When EMS arrived patients blood sugar was 29 and patient was altered and confused. Patient was given D10. Blood Sugar on arrival to ED was 76. Patient is A&Ox 3 on arrival. Patient denies chest pain, dizziness, nausea. Patient denies recent illness. (ROSENDO TIPTON APRN) Review of Systems: Review of Systems: Constitutional: Denies fever or chills Eyes: Denies change in visual acuity HENT: Denies nasal congestion or sore throat Respiratory: Denies cough or shortness of breath Cardiovascular: Denies chest pain or edema GI: Denies abdominal pain, nausea, vomiting, bloody stools or diarrhea : Denies dysuria Musculoskeletal: Denies back pain or joint pain Integument: Denies rash Neurologic: Denies headache, focal weakness or sensory changes Endocrine: Denies polyuria or polydipsia Lymphatic: Denies swollen glands Psychiatric: Denies depression or anxiety (ROSENDO TIPTON APRN) Allergies: Allergies: Allergies Coded Allergies Type Severity Reaction Last Updated Verified No Known Drug Allergies 10/27/14 No (ROSENDO TIPTON APRN) Physical Exam: PE: Constitutional: Well developed, well nourished, no acute distress, non-toxic appearance. [] HENT: Normocephalic, atraumatic, bilateral external ears normal, oropharynx moist, no oral exudates, nose normal. [] Eyes: PERRLA, EOMI, conjunctiva normal, no discharge. [] Neck: Normal range of motion, no tenderness, supple, no stridor. [] Cardiovascular:Heart rate regular rhythm, no murmur [] Lungs & Thorax: Bilateral breath sounds clear to auscultation [] Abdomen: Bowel sounds normal, soft, no tenderness, no masses, no pulsatile masses. [] Skin: Warm, dry, no erythema, no rash. [] Back: No tenderness, no CVA tenderness. [] Extremities: No tenderness, no cyanosis, no clubbing, ROM intact, no edema. [] Neurologic: Alert and oriented X 3, normal motor function, normal sensory function, no focal deficits noted. [] Psychologic: Affect normal, judgement normal, mood normal. [] (ROSENDO TIPTON APRN) Current Patient Data: Labs: Laboratory Tests Test 06/19/20 19:49 Glucose (Fingerstick) 76 mg/dL (70-99) (ROSENDO TIPTON APRN) EKG: EKG: [] (ROSENDO TIPTON APRN) Radiology/Procedures: Radiology/Procedures: []Exam: Chest one view INDICATION: Chest pain TECHNIQUE: Frontal view of the chest Comparisons: 06/03/2020 FINDINGS: The cardiomediastinal silhouette and pulmonary vessels are within normal limits. Patchy airspace disease at the left lung base. No pleural effusion. IMPRESSION: Patchy left basilar airspace disease. May be infectious or inflammatory in etiology. Electronically signed by: Bozena Melgar MD (06/19/2020 8:12 PM) [facility] (ROSENDO TIPTON APRN) Heart Score: Risk Factors: Risk Factors: DM, Current or recent (<one month) smoker, HTN, HLP, family history of CAD, obesity. Risk Scores: Score 0 - 3: 2.5% MACE over next 6 weeks - Discharge Home Score 4 - 6: 20.3% MACE over next 6 weeks - Admit for Clinical Observation Score 7 - 10: 72.7% MACE over next 6 weeks - Early Invasive Strategies (ROSENDO TIPTON APRN) Course & Med Decision Making: Course & Med Decision Making Pertinent Labs and Imaging studies reviewed. (See chart for details) 69-year-old female presents with hypoglycemia. When EMS arrived patient was altered and told nursing staff that she had chest pain. Patient's blood sugar was 29 per EMS. On arrival to ED patient's blood sugar was 76 after receiving D5. Patient denies chest pain, dizziness. Patient is alert and oriented x3. Patient states "last time my blood sugar dropped I felt like I had chest pain too". EKG ordered to rule out cardiac abnormalities. EKG was normal. No need for cardiac work-up. We will reassess patient, and recheck patient's blood sugar in 1 hour after she has eaten. Blood Sugar rechecked, 146. Troponin elevated but elevated in past visits. Troponin improved today since last visit. Will redraw with Blood Sugar. [] (ROSENDO TIPTON APRN) Course & Med Decision Making Assumed care of patient from nurse practitioner. Patient presented to the emergency room with altered mental status due to hypoglycemia. Patient is feeling much better at this time. Glucose has been trending up after she ate here in the emergency. Patient does have a borderline troponin, however upon further review patient has had multiple elevated troponins in the past. Her last elevated troponin was a week ago. Her troponins today were lower than they were last week. Her troponin did not increase while here in the emergency room. She does not have any chest pain. EKG does not show any signs of STEMI. At this time there is no concern for cardiac disease. Patient's test results and vitals while in the ED were fully reviewed and discussed with the patient. Patient is stable and at this time does not need admission to the hospital. We have discussed strict return precautions and the importance of following up with their Primary Care Physician. Patient stated understanding and was given an opportunity to ask any questions. Patient is in agreement with plan. (MAKAYLA CONRAD MD) Dragon Disclaimer: Dragon Disclaimer: This electronic medical record was generated, in whole or in part, using a voice recognition dictation system. (ROSENDO TIPTON APRN) Departure Departure: Impression: Primary Impression: Hypoglycemia Disposition: 01 DC HOME SELF CARE/HOMELESS Condition: IMPROVED Referrals: WALT NOLASCO (PCP) Patient Instructions: Hypoglycemia (Low Blood Sugar) ROSENDO TIPTON APRN Jun 19, 2020 20:32 MAKAYLA CONRAD MD Jun 19, 2020 23:00
[2020-06-19 20:36] LABS: CALCIUM 9.4 mg/dL (8.5-10.1); CREATININE 1.8 mg/dL (0.6-1.0); GFR 27.9; POTASSIUM 3.1 mmol/L (3.5-5.1)
[2020-06-19 20:48] LABS: ALBUMIN 3.2 g/dL (3.4-5.0); ALBUMIN/GLOBULIN RATIO 0.8 (1.0-1.7); TOTAL BILIRUBIN 0.4 mg/dL (0.2-1.0); TOTAL PROTEIN 7.1 g/dL (6.4-8.2)
[2020-06-19 23:10] VITALS: BP 134/65
--- NOTE | 2020-06-20 03:43 | EKG ---
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
== END 2020-06-19 23:43 | disposition home or self-care (01) ==
LOC: ER 19:42
DX: E16.2 Hypoglycemia, unspecified (principal); R41.0 Disorientation, unspecified; E11.9 Type 2 diabetes mellitus without complications; Z98.890 Other specified postprocedural states
CPT/HCPCS: 36415; 71045; 80053; 82550; 82947; 83880; 84484; 85025; 93005; 99285

== ENCOUNTER 2020-06-23 18:07 | Inpatient (IN) | payer MEDICARE ==
[~2020-06-23] VITALS: Ht 162.6 cm; Wt 80.8 kg
[~2020-06-23 18:07] MED LIST changes: -LISI-334 PO; -LISI-338 PO; +LISI-517 PO; +LISI20TA18 PO
--- NOTE | 2020-06-23 18:10 | PHYS DOC ---
Past History Past Medical History: Anemia, Anxiety, Arthritis, CAD, Diabetes, High Cholesterol, Hypertension, Renal Disease, UTI, Other Additional Past Medical Histor: Blindness, Osteoporosis, Thrombocytopenia, Syncope, Osteoarthritis Past Surgical History: Hip Replacement, Other Additional Past Surgical Histo: recent right tib/fib fx with repair Alcohol Use: None Drug Use: None General Adult EDM: Chief Complaint: NEURO SYMPTOMS/DEFICITS HPI: HPI: "... I don't know.. they just .. sent me..." Patient is a 69 year old female who presents with altered metal status and confusion. [facility] of a comminuted fracture of the right Tib/ fib. Patient on arrival responsive but did appear to be overly sedated. Patient did respond to questions but was slow to answer. Did move all extremities on request. Patient has past medical history of anemia, thrombocytopenia, diabetes, hyperlipidemia, anxiety disorder, hypertension, arteriosclerotic heart disease, angina, osteoarthritis, history of porosis, acute kidney failure, urinary tract infections, syncopes, falls, deconditioning, retinopathy, cognitive communication deficits, dementia, episodes of hypoglycemia and morbid obesity. [facility] Corine Burt. Patient prior to recent hospitalization at [facility] reportedly also with followed with Dr. Cespedes, Jagdish, and Vesta locally.. No recent travel has been exposed to other patients during her hospitalization and [facility] stay that have been ill. There is history of possible Covid exposure. Review of Systems: Review of Systems: Patient is somewhat a poor historian. Constitutional: Denies fever or chills Eyes: Denies change in visual acuity HENT: Denies nasal congestion or sore throat Respiratory: Denies cough or shortness of breath Cardiovascular: Denies chest pain or edema GI: Denies abdominal pain, nausea, vomiting, bloody stools or diarrhea : Denies dysuria Musculoskeletal: Hx. Rt. leg pain Integument: Denies rash Neurologic: Denies headache, focal weakness or sensory changes . Hx. recent altered mental status and confusion Endocrine: Denies polyuria or polydipsia Lymphatic: Denies swollen glands Psychiatric: Hx. anxiety Family History: Family History: Not currently available Current Medications: Current Meds: See nursing for [facility] medications Allergies: Allergies: Allergies Coded Allergies Type Severity Reaction Last Updated Verified No Known Drug Allergies 10/27/14 No Physical Exam: PE: Constitutional: , no acute distress, appears oversedated in appearance. [] HENT: Normocephalic, atraumatic, bilateral external ears normal, oropharynx dry, no oral exudates, nose normal. [] Eyes: PERRLA, EOMI, conjunctiva normal, no discharge. [] Neck: no tenderness, , no stridor. [] Cardiovascular:Heart rate regular rhythm, no murmur, PMI to the left Lungs & Thorax: Bilateral breath sounds equal at apex but bilateral basilar crackles and rhonchi on auscultation [] Abdomen: Bowel sounds decreased, soft, no tenderness, no masses, no pulsatile masses. Old surgical scar. Obese Skin: Warm, dry, no erythema, no rash. Poor turgor Back: No tenderness, no CVA tenderness. [] Extremities: No tenderness, no cyanosis, no clubbing, ROM intact, bilateral ankle edema,> on Rt. Arthritic changes. Old surgery scar. Right leg has external fixation. Neurologic: Alert ,oriented to name and knows she is in a hospital, moves extrem ities on request, does have distal sensory, no gross focal deficits noted. [] Psychologic: Affect sedated, judgement appears to be impaired, mood normal. [] Patient's sedation gradually improved and became somewhat demanding and argum entative. EKG: EKG: My Interpretation of EKG Shows a Sinus Rhythm at 78 Bpm. Prolonged MT Interval 234 ms. Abnormal EKG [] Radiology/Procedures: Radiology/Procedures: [address] [address] IMAGING REPORT Signed PATIENT: EARLENE MONZON I ACCOUNT: [id number] : 1950 LOCATION: ER AGE: 69 SEX: F EXAM STATUS: REG ER ORD. PHYSICIAN: JDUY GARCIA MD REASON: DYSPNEA, OMNI 350, 75ml REDUCED DOSE DUE TO GFR 26.2 PROCEDURE: CT ANGIOGRAPHY CHEST Exam: CT of chest with contrast INDICATION: Dyspnea TECHNIQUE: Sequential axial images through the chest obtained following the administration of 75 mL of Isovue-370 IV contrast. Sagittal and coronal reformatted images were reconstructed from the axial data and reviewed. 3-D reformatted images were reconstructed from the axial data and reviewed. Comparisons: None FINDINGS: Enlarged heterogenous appearance of the right lobe of thyroid gland. No enlarged mediastinal lymph nodes. Heart size is normal. No pericardial effusion. Moderate coronary artery calcification are noted. Thoracic aorta has a normal course and caliber. Pulmonary artery is not enlarged. No pulmonary embolus identified within the main, lobar or segmental pulmonary arteries. Airways are patent. There is patchy areas of ground glass opacity noted in the right lower lobe. No suspicious lung nodules. No consolidation or pneumothorax. No pleural effusion or thickening. Cholelithiasis. Small hiatal hernia. No suspicious osseous lesions or acute fractures. IMPRESSION: 1. No pulmonary embolus identified within the main, lobar or segmental pulmonary arteries. 2. Ground glass opacity in the right lower lobe favored to represent pneumonia. 3. Heterogenous enlarged appearance of the right lobe of the thyroid gland. Further evaluation with nonemergent/outpatient thyroid ultrasound is recommended. Exposure: One or more of the following in the visualized dose reduction techniques were utilized for this examination: 1. Automated exposure control 2. Adjustment of the MA and/or KV according to patient size 3. Use of iterative of reconstructive technique Electronically signed by: Bozena Sutton MD (06/23/2020 10:16 PM) [facility] DICTATED AND SIGNED BY: BOZENA SUTTON MD DATE: 06/23/202211 CC: JUDY GARCIA MD; WALT CESPEDES ~MTH0 0 [][address] [address] IMAGING REPORT Signed PATIENT: EARLENE MONZON I ACCOUNT: [id number] : 1950 LOCATION: ER AGE: 69 SEX: F EXAM STATUS: REG ER ORD. PHYSICIAN: JUDY GARCIA MD REASON: alter. Mental status, found on ground PROCEDURE: CT HEAD AND CERVICAL SPINE WO CT head without contrast: Reason for examination: Altered mental status. Found on the ground. Axial images were obtained through the brain. No contrast was administered. Ventricular systems are symmetric and not dilated. No midline shift is seen. There is no evidence of intracranial hemorrhage, infarct, mass or edema. No abnormalities of seen at the orbits. The paranasal sinuses and mastoid air cells are clear. No acute skull abnormality is seen. IMPRESSION: No acute intracranial abnormality evident. CT cervical spine without contrast: Helical images were obtained through the cervical spine from skull base through the thoracic apices with no contrast administered. Reconstruction was performed in sagittal and coronal planes. The C1 ring is intact. The odontoid process is intact and normally centered between the lateral masses of C1. The vertebral bodies of the cervical spine are normally aligned anteriorly and posteriorly. No acute fracture or subluxation is seen. Posterior elements are intact. Note is made of some nuchal ligament calcification. There are hypertrophic changes off the anterior endplates from C3 through C7. The intervertebral discs however fairly well-maintained. Prevertebral soft tissues are normal. There does appear to be some mild to moderate central canal stenosis at the C4-5, C5-6 and C6-7 disc levels. IMPRESSION: Degenerative spondylosis with large hypertrophic spurs off the anterior endplates from C3 through C7 with some mild to moderate spinal stenosis from the C4-5 through the C6-7 disc levels. No acute abnormality evident in the cervical spine. Exposure: One or more of the following individualized dose reduction techniques were utilized for this examination: 1. Automated exposure control 2. Adjustment of the mA and/or kV according to patient size 3. Use of iterative reconstruction technique. Electronically signed by: Ivory Monroy MD (06/23/2020 6:38 PM) [id number] DICTATED AND SIGNED BY: IVORY MONROY MD DATE: 06/23/20 183 CC: JUDY GARCIA MD; WALT CESPEDES ~MTH0 0 Heart Score: HEART Score for Chest Pain: HEART Score for Chest Pain Response (Comments) Value History Moderately Suspicious 1 ECG Nonspecific Repolarizatio 1 Age > 65 2 Risk Factors 1 or 2 Risk Factors 1 Troponin >1-<3x Normal Limit 1 Total 6 Risk Factors: Risk Factors: DM, Current or recent (<one month) smoker, HTN, HLP, family history of CAD, obesity. Risk Scores: Score 0 - 3: 2.5% MACE over next 6 weeks - Discharge Home Score 4 - 6: 20.3% MACE over next 6 weeks - Admit for Clinical Observation Score 7 - 10: 72.7% MACE over next 6 weeks - Early Invasive Strategies Course & Med Decision Making: Course & Med Decision Making Pertinent Labs and Imaging studies reviewed. (See chart for details) Discussed presentation, testing and treatment plan with Dr. Dubon. Will admit for further evaluation and treatment. Will obtain a cardiology consult for elevated troponin. Covid test pending. Plan US in Am of legs for DVT Impression: 1. Atypical pneumonia 2. Covid rule out 3. Dehydration-BUN 32/1.9 4. Elevated troponin 0.076 [place] rule out 5. Altered mental status 6. Anemia hemoglobin 9.3 7. Elevated D-dimer 4.36 8. History diabetes 9. History of comminuted right tib-fib fracture 06/11 with surgical repair [] Dragon Disclaimer: Dragon Disclaimer: This electronic medical record was generated, in whole or in part, using a voice recognition dictation system. Departure Departure: Referrals: WALT CESPEDES (PCP) Dragon Disclaimer This chart was dictated in whole or in part using Voice Recognition software in a busy, high-work load, and often noisy Emergency Department environment. It may contain unintended and wholly unrecognized errors or omissions. Dragon Disclaimer This chart was dictated in whole or in part using Voice Recognition software in a busy, high-work load, and often noisy Emergency Department environment. It may contain unintended and wholly unrecognized errors or omissions. JUDY GARCIA MD Jun 23, 2020 18:10
[2020-06-23] MEDS ORDERED: IV RINGERS SOLUTION,LACTATED 1,000 ML IV SCH (18:30)
--- NOTE | 2020-06-23 18:41 | RAD ---
CT head without contrast: Reason for examination: Altered mental status. Found on the ground. Axial images were obtained through the brain. No contrast was administered. Ventricular systems are symmetric and not dilated. No midline shift is seen. There is no evidence of intracranial hemorrhage, infarct, mass or edema. No abnormalities of seen at the orbits. The paranasa l sinuses and mastoid air cells are clear. No acute skull abnormality is seen. IMPRESSION: No acute intracranial abnormality evident. CT cervical spine without contrast: Helical images were obtained through the cervical spine from skull base through the thoracic apices w ith no contrast administered. Reconstruction was performed in sagittal and coronal planes. The C1 ring is intact. The odontoid process is intact and normally centered between the lateral mendy s of C1. The vertebral bodies of the cervical spine are normally aligned anteriorly and posteriorly. No acute fracture or subluxation is seen. Posterior elements are intact. Note is made of some nuchal ligament calcification. There are hypertrophic changes off the anterior endplates from C3 through C7. The intervertebral discs however fairly well-maintained. Prevertebral soft tissues are normal. There does appear to be some mild to moderate central canal stenosis at the C4-5, C5-6 and C6-7 disc level s. IMPRESSION: Degenerative spondylosis with large hypertrophic spurs off the anterior endplates from C3 through C7 with some mild to moderate spinal stenosis from the C4-5 through the C6-7 disc levels. No acute abnormality evident in the cervical spine. Exposure: One or more of the following individualized dose reduction techniques were utilized for thi s examination: 1. Automated exposure control 2. Adjustment of the mA and/or kV according to patient size 3. Use of iterative reconstruction technique. Electronically signed by: Sierra Gonzalez MD (06/23/2020 6:38 PM) [id number]
--- NOTE | 2020-06-23 19:06 | RAD ---
Exam performed: One view chest and x-ray tibia-fibula. Indication: Reason: alter. MS, on ground / Spl. Instructions: / History: Date of Service: 06/23/2020 6:25 PM Comparison: None available. Single AP upright portable view chest findings: Cardiomediastinal silhouette is within limits of normal. No acute infiltrates, effusion or pneumotho rax is detected. There are degenerative changes about the right shoulder joint. Impression: No acute cardiopulmonary process is detected. End impression X-ray tibia-fibula findings: AP and lateral view of the right tibia fibula are obtained. There are comminuted fractures proximal t ibia and fibula with fixation screws. There is a sideplate and screw along the distal fibula. 2 screw s are seen along the medial malleolus. There are degenerative changes about the ankle joint. Impression: Acute comminuted fractures tibia and fibula stabilized by hardware. Degenerative arthrosis involving the ankle joint. End impression Exam performed: CT scan of the head and cervical spine without contrast. Date of Service: 06/23/2020 Comparison:None available Clinical History: Altered mental status Technique: Helical acquisitions are obtained from the foramen magnum to the vertex without intravenou s administration of contrast. In addition helical acquisitions are obtained through the cervical spin e. Sagittal and coronal reformatted images are obtained and reviewed. CT scan head findings: The ventricular system is midline without evidence of dilatation. Normal castro-white differentiation is maintained. There is age related atrophy. There is no extra axial fluid collection, intraparenchy mal hemorrhage or mass lesion. The visualized orbits, paranasal sinuses and the mastoid air cells ar e clear. The calvarium is intact. Impression: 1. No acute intracranial process detected. End Impression. CT cervical spine findings: Normal sagittal alignment is preserved. There is mild scoliosis of the cervical spine with leftward c oncavity. The vertebral body heights are maintained. Exuberant anterior osteophytes There is no anter o or retrolisthesis. Mild multilevel central canal stenosis is seen. There are no fractures. No preve rtebral soft tissue swelling is identified. Large right thyroid nodule containing calcifications. No definite lymphadenopathy or masses are seen within the neck. The visualized thyroid and salivary gla nds appears preserved. Impression: 1. Spondylotic changes and mild multilevel disc degenerative changes. 2. No acute findings seen. 3. Large right thyroid nodule containing calcifications. Evaluation with thyroid ultrasound may be ob tained if not already performed. PQRS Compliance Statement: One or more of the following individualized dose reduction techniques were utilized for this examinat ion: 1. Automated exposure control 2. Adjustment of the mA and/or kV according to patient size 3. Use of iterative reconstruction technique Electronically signed by: Gala Felton MD (06/23/2020 7:03 PM) [facility]ITAL[facility]
[2020-06-23 19:15] LABS: CALCIUM 9.3 mg/dL (8.5-10.1); CREATININE 1.9 mg/dL (0.6-1.0); GFR 26.2; POTASSIUM 3.2 mmol/L (3.5-5.1)
[2020-06-23 19:29] LABS: ALBUMIN 3.3 g/dL (3.4-5.0); DIRECT BILIRUBIN 0.1 mg/dL (0.0-0.2); TOTAL BILIRUBIN 0.4 mg/dL (0.2-1.0); TOTAL PROTEIN 7.1 g/dL (6.4-8.2)
[2020-06-23 19:31] LABS: BASO % 1 % (0-3); EOS % 1 % (0-3); HEMOGLOBIN 9.3 g/dL (12.0-15.5); LYMPH # 0.8 x10^3/uL (1.0-4.8); LYMPH % 16 % (24-48); MEAN CORPUSCULAR HEMOGLOBIN 28 pg (25-35); MEAN CORPUSCULAR HGB CONC 32 g/dL (31-37); MEAN CORPUSCULAR VOLUME 86 fL (79-100); MONO # 0.6 x10^3/uL (0.0-1.1); MONO % 12 % (0-9); NEUT # 3.5 x10^3uL (1.8-7.7); NEUT % 71 % (31-73); PLATELET COUNT 209 x10^3/uL (140-400); RED BLOOD COUNT 3.39 x10^6/uL (3.50-5.40)
[2020-06-23 19:57] LABS: BACTERIA,URINE 0 /HPF (0-FEW); BILIRUBIN,URINE SMALL (NEG); CLARITY,URINE CLEAR; COLOR,URINE STRAW; GLUCOSE,URINE >=1000 mg/dL (NEG); NITRITE,URINE NEG (NEG); RBC,URINE 0 /HPF (0-2); UROBILINOGEN,URINE 0.2 mg/dL (0.2 mg/dL); WBC,URINE 0 /HPF (0-4)
[2020-06-23] MEDS ORDERED: IV RINGERS SOLUTION,LACTATED 1,000 ML IV ONE (21:00)
[2020-06-23] MEDS ORDERED: ENOXAPARIN ** NOTE DOSE ** SYRINGE SQ ONE (21:15)
[2020-06-23] MEDS ORDERED: CONTRAST GIVEN. MC PRN (21:30)
[2020-06-23] MEDS ORDERED: IOHEXOL 350 MG/ML 100 ML VIAL. IV ONE (21:30)
--- NOTE | 2020-06-23 22:18 | RAD ---
Exam: CT of chest with contrast INDICATION: Dyspnea TECHNIQUE: Sequential axial images through the chest obtained following the administration of 75 mL o f Isovue-370 IV contrast. Sagittal and coronal reformatted images were reconstructed from the axial d qasim and reviewed. 3-D reformatted images were reconstructed from the axial data and reviewed. Comparisons: None FINDINGS: Enlarged heterogenous appearance of the right lobe of thyroid gland. No enlarged mediastinal lymph no silvina. Heart size is normal. No pericardial effusion. Moderate coronary artery calcification are noted. Thor acic aorta has a normal course and caliber. Pulmonary artery is not enlarged. No pulmonary embolus id entified within the main, lobar or segmental pulmonary arteries. Airways are patent. There is patchy areas of ground glass opacity noted in the right lower lobe. No s uspicious lung nodules. No consolidation or pneumothorax. No pleural effusion or thickening. Cholelithiasis. Small hiatal hernia. No suspicious osseous lesions or acute fractures. IMPRESSION: 1. No pulmonary embolus identified within the main, lobar or segmental pulmonary arteries. 2. Ground glass opacity in the right lower lobe favored to represent pneumonia. 3. Heterogenous enlarged appearance of the right lobe of the thyroid gland. Further evaluation with nonemergent/outpatient thyroid ultrasound is recommended. Exposure: One or more of the following in the visualized dose reduction techniques were utilized for this examination: 1. Automated exposure control 2. Adjustment of the MA and/or KV according to patient size 3. Use of iterative of reconstructive technique Electronically signed by: Bozena Melgar MD (06/23/2020 10:16 PM) [facility]ERS[facility]
[2020-06-23] MEDS ORDERED: cefTRIAXone SODIUM 1 GM VIAL ONE (22:25)
[2020-06-23] MEDS ORDERED: AZITHROMYCIN 250 MG TABLET. PO ONE (23:15)
[2020-06-23] MEDS ORDERED: ACETAMINOPHEN 325 MG TABLET PO PRN (23:30)
[2020-06-23] MEDS ORDERED: ONDANSETRON PF 4 MG/2 ML VIAL. IVP PRN (23:30)
[2020-06-23] MEDS ORDERED: oxyCODONE/APAP 5/325 1 TAB TABLET PO PRN (23:45)
--- NOTE | 2020-06-24 01:00 | NUR ---
ADMISSION: The patient, EARLENE MONZON I, 69 y/o, F admitted by MRELIN MANCUSO MD, was given written information regarding hospital policies, unit procedures and contact persons. Pt arrived to room 123 via gurney, accompanied by [facility] and ED staff. Pt here for neuro deficits, atypical pneumonia, dehydration. Per report, pt has fluctuating blood sugars at AL today and last known well was at 1530. Pt resides at [facility] in [place] for group home after a fall at home which resulted in a right tib/fib fracture with repair by Dr. Steel at [facility] on 06/03. Pt has been at [facility] since 06/11. Spoke with Camryn HESS at the facility who reports pt is normally A/Ox4 and continent. UTD on flu vaccine. Lovenox for VTE. Pt currently difficult to rouse, A/O to self and hospital only. Pt has been incontinent of B+B and vomiting bile. Pt swabbed for COVID-19 while in ED, placed in contact and airborne isolation pending results. Discussed POC, pt will require reinforcement. Bed in lowest position with call light in reach. Bed alarmed for safety. Valuables were checked and logged. Left in room with pt.
[2020-06-24 01:25] VITALS: BP 168/66
[2020-06-24] MEDS ORDERED: AZITHROMYCIN 500 MG in IV NORMAL SALINE 250ML 250 ML IV ONE (01:30)
[2020-06-24] MEDS ORDERED: ENOX40DI SQ (04:05)
[2020-06-24] MEDS ORDERED: LINA5TAB4 PO (04:05)
[2020-06-24] MEDS ORDERED: LORA-254 PO (04:05)
[2020-06-24] MEDS ORDERED: CALC500T31 PO (04:05)
[2020-06-24] MEDS ORDERED: INSU100I17 SQ (04:05)
[2020-06-24] MEDS ORDERED: INSU100I13 SQ (04:05)
[2020-06-24] MEDS ORDERED: HYDR-3165 PO (04:05)
[2020-06-24] MEDS ORDERED: FERR-36 PO (04:05)
[2020-06-24] MEDS ORDERED: GLUC1KIT IM (04:05)
[2020-06-24] MEDS ORDERED: VALS40TA2 PO (04:05)
[2020-06-24] MEDS ORDERED: LACT1CAP6 PO (04:05)
[2020-06-24] MEDS ORDERED: ONDA-84 PO (04:05)
[2020-06-24] MEDS ORDERED: LOVA20TA2 PO (04:05)
[2020-06-24] MEDS ORDERED: AMLO2.5T5 PO (04:05)
[2020-06-24] MEDS ORDERED: MENT118G TP (04:05)
[2020-06-24 05:20] VITALS: BP 141/60
--- NOTE | 2020-06-24 06:29 | NUR ---
PT MORE AWAKE THIS MORNING, BUT ORIENTED TO SELF AND HOSPITAL ONLY. PT UNSURE OF HOW SHE GOT HERE. PT DISROBING IN BED, PULLING OFF TELE, UNWRAPPING JOSE CARLOS BANDAGE FROM RIGHT LEG EXTERNAL FIXATION DEVICE. PT REQUIRES REPEATED REDIRECTION. BED ALARMED FOR SAFETY.
--- NOTE | 2020-06-24 06:35 | NUR ---
CARDIOLOGY CONSULT CALLED TO DR. OTT. L/M WITH ANSWERING SERVICE. AWAITING CALL BACK.
[2020-06-24 06:42] LABS: BASO % 0 % (0-3); EOS % 0 % (0-3); HEMATOCRIT 30.6 % (36.0-47.0); HEMOGLOBIN 10.1 g/dL (12.0-15.5); LYMPH # 0.4 x10^3/uL (1.0-4.8); LYMPH % 6 % (24-48); MEAN CORPUSCULAR HEMOGLOBIN 28 pg (25-35); MEAN CORPUSCULAR HGB CONC 33 g/dL (31-37); MEAN CORPUSCULAR VOLUME 85 fL (79-100); MONO # 0.5 x10^3/uL (0.0-1.1); MONO % 7 % (0-9); NEUT # 5.7 x10^3uL (1.8-7.7); NEUT % 87 % (31-73); PLATELET COUNT 212 x10^3/uL (140-400); RED BLOOD COUNT 3.58 x10^6/uL (3.50-5.40); RED CELL DISTRIBUTION WIDTH 17.2 % (11.5-14.5); WHITE BLOOD COUNT 6.6 x10^3/uL (4.0-11.0)
[2020-06-24 06:58] LABS: CREATININE 1.6 mg/dL (0.6-1.0); POTASSIUM 4.1 mmol/L (3.5-5.1)
--- NOTE | 2020-06-24 07:34 | EKG ---
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
--- NOTE | 2020-06-24 07:43 | EKG ---
[address] [address] Test Date: 2020-06-23 Test Time: 19:32:44 Pat Name: EARLENE MONZON Department: Room: 123 A Gender: F Javascript Programmer: TIFF : 1950 Requested By: JUDY GARCIA Order Number: [id number] Reading MD: Quincy Morelos Measurements Intervals [place] Rate: 78 P: 90 CT: 234 QRS: 29 QRSD: 88 T: 122 QT: 410 QTc: 471 Interpretive Statements SINUS RHYTHM PROLONGED CT INTERVAL T ABNORMALITY IN HIGH LATERAL LEADS ABNORMAL ECG Electronically Signed On 07-02-2020 15:51:45 SCALING MACHINE OPERATOR by Quincy Morelos
--- NOTE | 2020-06-24 07:55 | NUR ---
THIS RN WENT TO THE PATIENT ROOM UPON SUPERVISOR OPENING AND PICKING'S REQUEST, PATIENT WAS UP AND SITTING, PATIENT HAS TIB/FIB FX WITH EXTERNAL FIXATION. PATIENT WAS INSTRUCTED TO GO BACK IN A BED TO KEEP HER LEG UP AND ELEVATED. PATIENT REFUSED TO DO SO, RAISING HER VOICE AT STAFF, STATED SHE CAN DO WHATEVER SHE WANTED, PATIENT WAS REMINDED THAT SHE HAS LEG FX AND NEED TO CALL FOR ASSIST, BED ALARM AND CHAIR ALARM ON.
--- NOTE | 2020-06-24 07:59 | PDOC2 ---
CARDIAC CONSULT DATE OF CONSULT DOS: DATE: 06/24/20 TIME: 07:58 REASON FOR CONSULT Reason for Consult Hypertension Elevated troponin REFERRING PHYSICIAN Referring Physician Dr. Ndiaye SOURCE Source: Chart review, Patient HPI History of Present Illness This is a 69 yo female who presented secondary to altered mental status. Patient had recent syncopal episode, traumatic fall with right tibia fracture. Underwent closed reduction and external fixation of right tibia fracture earlier this month at [facility]. Was discharged to [facility] in [place]. Was noted with increasing confusion at facility and was brought to the ED for further evaluation and treatment. Troponin noted to be elevated, which prompted this consult. Is presently confused, but denies any chest pain, palpitations, dizziness, diaphoresis, SOA, or nausea/vomiting. PAST MEDICAL HISTORY Past Medical History Cardiovascular: HTN, Hyperlipidemia, Other (syncope ) MSK; arthritis Endocrine: Diabetes Renal; CKD PAST SURGICAL HISTORY Past Surgical History: Total hip replacement (right ), Other (Closed reduction and external fixation of right tibia fracture) FAMILY HISTORY Family History: Other (noncontributory ) SOCIAL HISTORY Social History Smoke: No ALCOHOL: none Drugs: None Lives: Has been at [facility] for rehab CURRENT MEDICATIONS Current Medications Current Medications Lactated Ringer's 1,000 ml @ 100 mls/hr Q10H IV Last administered on 06/23/20at 18:30; Start 06/23/20 at 18:30; Stop 06/24/20 at 04:29; Status DC Lactated Ringer's 1,000 ml @ 1,000 mls/hr 1X ONCE IV Last administered on 06/23/20at 21:07; Start 06/23/20 at 21:00; Stop 06/23/20 at 21:59; Status DC Enoxaparin Sodium (Lovenox 60mg Syringe) 60 mg 1X ONCE SQ Last administered on 06/23/20at 21:09; Start 06/23/20 at 21:15; Stop 06/23/20 at 21:16; Status DC Ceftriaxone Sodium 1 gm/ Sodium Chloride 50 ml @ 100 mls/hr 1X ONCE IV Last administered on 06/23/20at 21:15; Start 06/23/20 at 21:15; Stop 06/23/20 at 21:44; Status DC Iohexol (Omnipaque 350 Mg/ml) 100 ml 1X ONCE IV Last administered on 06/23/20at 21:44; Start 06/23/20 at 21:30; Stop 06/23/20 at 21:31; Status DC Info (Do NOT chart on this entry -- for MONITORING) 1 each PRN DAILY PRN MC SEE COMMENTS; Start 06/23/20 at 21:30; Stop 06/25/20 at 21:29 Ceftriaxone Sodium (Rocephin) 1 gm STK-MED ONCE .ROUTE ; Start 06/23/20 at 22:25; Stop 06/23/20 at 22:26; Status DC Azithromycin (Zithromax) 500 mg 1X ONCE PO ; Start 06/23/20 at 23:15; Stop 06/23/20 at 23:16; Status DC Ondansetron HCl (Zofran) 4 mg PRN Q4HRS PRN IVP NAUSEA/VOMITING Last administered on 06/24/20at 00:17; Start 06/23/20 at 23:30; Stop 06/24/20 at 23:29 Acetaminophen (Tylenol) 650 mg PRN Q4HRS PRN PO FEVER > 100.3'F; Start 06/23/20 at 23:30; Stop 06/24/20 at 23:29 Albuterol/ Ipratropium (Duoneb) 3 ml RTQID NEB ; Start 06/24/20 at 08:00; Stop 06/25/20 at 07:59 Ceftriaxone Sodium 1 gm/ Sodium Chloride 50 ml @ 100 mls/hr 1X IV ; Start 06/23/20 at 23:30 Azithromycin (Zithromax) 250 mg HS PO ; Start 06/24/20 at 21:00 Albuterol Sulfate (Ventolin Hfa Inhaler) 2 puff QID INH ; Start 06/24/20 at 09:00; Status UNV Enoxaparin Sodium (Lovenox 60mg Syringe) 60 mg BID SQ ; Start 06/24/20 at 09:00; Status UNV Aspirin (Paulo Aspirin) 81 mg DAILYWBKFT PO ; Start 06/24/20 at 08:00 Oxycodone/ Acetaminophen (Percocet 5/325) 2 tab PRN QID PRN PO PAIN; Start 06/23/20 at 23:45 Azithromycin 500 mg/Sodium Chloride 250 ml @ 250 mls/hr 1X ONCE IV Last administered on 06/24/20at 02:32; Start 06/24/20 at 01:30; Stop 06/24/20 at 02:30; Status DC Active Scripts Active Reported Ondansetron Hcl 4 Mg Tablet 4 Mg PO PRN Q6HRS PRN Novolog Flexpen (Insulin Aspart) 100 Unit/1 Ml Insuln.pen 0-19 Unit SQ TIDWMEALS Novolog Flexpen (Insulin Aspart) 100 Unit/1 Ml Insuln.pen 15 Unit SQ TIDWMEALS Lovastatin 20 Mg Tablet 20 Mg PO DAILY Tradjenta (Linagliptin) 5 Mg Tablet 5 Mg PO DAILY Lantus Solostar (Insulin Glargine,Hum.rec.anlog) 100 Unit/1 Ml Insuln.pen 10 Unit SQ BID Probiotic (Lactobacillus Acidophilus) 1 Each Capsule 1 Each PO BID Iron (Ferrous Sulfate) 325 Mg Tablet 325 Mg PO BIDWMEALS [place] 5-325 Tablet (Hydrocodone Bit/Acetaminophen) 1 Each Tablet 1 Tab PO PRN Q6HRS PRN Glucagon Emergency Kit (Glucagon,Human Recombinant) 1 Mg Kit 1 Mg IM ONCE Lovenox (Enoxaparin Sodium) 40 Mg/0.4 Ml Disp.syrin 40 Mg SQ DAILY Diovan (Valsartan) 40 Mg Tablet 40 Mg PO DAILY Calcium Carbonate 500 Mg Tablet 2 Tab PO PRN Q8HRS PRN 30 Days Biofreeze (Menthol) 118 Ml Gel..ml. 1 Fam TP PRN Q4HRS PRN 10 Days apply to neck and shoulders as needed for pain Ativan (Lorazepam) 1 Mg Tablet 1 Mg PO Q6HRS Amlodipine Besylate 2.5 Mg Tablet 2.5 Mg PO DAILY ALLERGIES Allergies: Coded Allergies: iodine (Verified Allergy, Unknown, 06/24/20) ROS Review of Systems 14 point ROS conducted with pertinent positives noted above in hPI PHYSICAL EXAM General: Alert, Cooperative, No acute distress HEENT: Atraumatic Lungs: Other (diminished ) Heart: Regular rate Abdomen: Soft, No tenderness Extremities: No edema, Normal pulses Skin: No breakdown Neuro: Normal speech, Sensation intact Psych/Mental Status: Other (agitated, confused ) MUSCULOSKELETAL: Osteoarthritic changes both hands VITALS Vital Signs Vital Signs Date Time Temp Pulse Resp B/P (MAP) Pulse Ox O2 Delivery O2 Flow Rate FiO2 12/28/20 05:20 99.4 85 20 141/60 (87) 96 Room Air LABS LABS Laboratory Tests Test 06/23/20 18:45 06/23/20 18:46 06/23/20 19:13 06/23/20 22:03 Glucose (Fingerstick) 143 mg/dL (70-99) White Blood Count 5.0 x10^3/uL (4.0-11.0) Red Blood Count 3.39 x10^6/uL (3.50-5.40) Hemoglobin 9.3 g/dL (12.0-15.5) Hematocrit 29.0 % (36.0-47.0) Mean Corpuscular Volume 86 fL (79-100) Mean Corpuscular Hemoglobin 28 pg (25-35) Mean Corpuscular Hemoglobin Concent 32 g/dL (31-37) Red Cell Distribution Width 18.0 % (11.5-14.5) Platelet Count 209 x10^3/uL (140-400) Neutrophils (%) (Auto) 71 % (31-73) Lymphocytes (%) (Auto) 16 % (24-48) Monocytes (%) (Auto) 12 % (0-9) Eosinophils (%) (Auto) 1 % (0-3) Basophils (%) (Auto) 1 % (0-3) Neutrophils # (Auto) 3.5 x10^3uL (1.8-7.7) Lymphocytes # (Auto) 0.8 x10^3/uL (1.0-4.8) Monocytes # (Auto) 0.6 x10^3/uL (0.0-1.1) Eosinophils # (Auto) 0.0 x10^3/uL (0.0-0.7) Basophils # (Auto) 0.0 x10^3/uL (0.0-0.2) Prothrombin Time 11.0 SEC (9.4-11.4) Prothromb Time International Ratio 1.1 (0.9-1.1) Activated Partial Thromboplast Time 33 SEC (23-33) D-Dimer (Ching) 4.36 mg/L (0.00-0.50) Sodium Level 135 mmol/L (136-145) Potassium Level 3.2 mmol/L (3.5-5.1) Chloride Level 97 mmol/L (98-107) Carbon Dioxide Level 30 mmol/L (21-32) Anion Gap 8 (6-14) Blood Urea Nitrogen 32 mg/dL (7-20) Creatinine 1.9 mg/dL (0.6-1.0) Estimated GFR (Cockcroft-Gault) 26.2 Glucose Level 111 mg/dL (70-99) Calcium Level 9.3 mg/dL (8.5-10.1) Magnesium Level 2.0 mg/dL (1.8-2.4) Total Bilirubin 0.4 mg/dL (0.2-1.0) Direct Bilirubin 0.1 mg/dL (0.0-0.2) Aspartate Amino Transf (AST/SGOT) 30 U/L (15-37) Alanine Aminotransferase (ALT/SGPT) 25 U/L (14-59) Alkaline Phosphatase 197 U/L (46-116) Creatine Kinase 253 U/L (26-192) Creatine Kinase MB (Mass) 6.9 ng/mL (0.0-3.6) Creatine Kinase MB Relative Index 2.7 % (0-4) Troponin I Quantitative 0.076 ng/mL (0-0.055) 0.085 ng/mL (0-0.055) C-Reactive Protein 28.4 mg/L (0-3.3) Total Protein 7.1 g/dL (6.4-8.2) Albumin 3.3 g/dL (3.4-5.0) Lipase 27 U/L (73-393) Urine Collection Type Unknown Urine Color Straw Urine Clarity Clear Urine pH 5.0 Urine Specific [place] 1.015 Urine Protein Neg (NEG-TRACE) Urine Glucose (UA) >=1000 mg/dL (NEG) Urine Ketones (Stick) 40 mg/dL (NEG) Urine Blood Small (NEG) Urine Nitrite Neg (NEG) Urine Bilirubin Small (NEG) Urine Urobilinogen Dipstick 0.2 mg/dL (0.2 mg/dL) Urine Leukocyte Esterase Neg (NEG) Urine RBC 0 /HPF (0-2) Urine WBC 0 /HPF (0-4) Urine Squamous Epithelial Cells None /LPF Urine Bacteria 0 /HPF (0-FEW) Lactic Acid Level 1.8 mmol/L (0.4-2.0) Test 06/23/20 23:45 06/24/20 05:50 06/24/20 07:21 Glucose (Fingerstick) 131 mg/dL (70-99) 191 mg/dL (70-99) White Blood Count 6.6 x10^3/uL (4.0-11.0) Red Blood Count 3.58 x10^6/uL (3.50-5.40) Hemoglobin 10.1 g/dL (12.0-15.5) Hematocrit 30.6 % (36.0-47.0) Mean Corpuscular Volume 85 fL (79-100) Mean Corpuscular Hemoglobin 28 pg (25-35) Mean Corpuscular Hemoglobin Concent 33 g/dL (31-37) Red Cell Distribution Width 17.2 % (11.5-14.5) Platelet Count 212 x10^3/uL (140-400) Neutrophils (%) (Auto) 87 % (31-73) Lymphocytes (%) (Auto) 6 % (24-48) Monocytes (%) (Auto) 7 % (0-9) Eosinophils (%) (Auto) 0 % (0-3) Basophils (%) (Auto) 0 % (0-3) Neutrophils # (Auto) 5.7 x10^3uL (1.8-7.7) Lymphocytes # (Auto) 0.4 x10^3/uL (1.0-4.8) Monocytes # (Auto) 0.5 x10^3/uL (0.0-1.1) Eosinophils # (Auto) 0.0 x10^3/uL (0.0-0.7) Basophils # (Auto) 0.0 x10^3/uL (0.0-0.2) Sodium Level 135 mmol/L (136-145) Potassium Level 4.1 mmol/L (3.5-5.1) Chloride Level 98 mmol/L (98-107) Carbon Dioxide Level 25 mmol/L (21-32) Anion Gap 12 (6-14) Blood Urea Nitrogen 30 mg/dL (7-20) Creatinine 1.6 mg/dL (0.6-1.0) Estimated GFR (Cockcroft-Gault) 32.0 Glucose Level 147 mg/dL (70-99) Calcium Level 9.0 mg/dL (8.5-10.1) ECHOCARDIOGRAM Echocardiogram <Conclusion> Left ventricle systolic function is normal. The Ejection Fraction is 65%. There is normal LV segmental wall motion. Mild aortic regurgitation. Trace tricuspid regurgitation. The PA pressure was estimated at 45-50 mmHg. There is no evidence of significant pericardial effusion. DATE: 06/05/20 [id number] ASSESSMENT/PLAN Assessment/Plan 1. Altered mental status 2. Mild troponin elevation; highest 0.085. most probable type II, demand ischemia. CP free. Recent echo with preserved LV systolic function. Refusing tele. 3. PNA, PUI. COVID pending. As per IM 4. FADIA 5. S/p recent syncopal episode, traumatic fall with right tibial and fibular fracture. S/p closed reduction and external fixation of tibial fracture. No acute events on tele 6. Hypertension; controlled 7. Hyperlipidemia; LDL 83 8. Diabetes,II Recommendations Trend troponin ASA, statin therapy Add low-dose BB therapy Consider outpatient ischemic evaluation Supportive care Await YANNI JOSHI APRN Jun 24, 2020 07:59
[2020-06-24] MEDS ORDERED: ASPIRIN 325 MG TABLET PO SCH (08:00)
[2020-06-24] MEDS ORDERED: IPRATRPIUM/ALBUTEROL 0.5/2.5MG 3 ML NEBU. NEB SCH (08:00)
[2020-06-24] MEDS ORDERED: ALBUTEROL SULFATE 8GM INHALER. INH SCH (09:00)
[2020-06-24] MEDS ORDERED: METOPROLOL TART IMMED RELEASE 25 MG TABLET. PO SCH (09:00)
[2020-06-24] MEDS ORDERED: ENOXAPARIN ** NOTE DOSE ** SYRINGE SQ SCH (09:00)
--- NOTE | 2020-06-24 09:52 | NUR ---
SPOKE WITH THE PATIENT THIS AM UPON ASSESSMENT, PATIENT IS VERY UPSET, REFUSING CARE, ASKED TO CALL . WHILE PATIENT WAS ON THE PHONE WITH HER , THIS RN WAS IN A PT ROOM AND SPOKE TO THE OF THIS PT, HE STATED THAT HE DOES NOT WANT TO BE UNDER THE CARE OF DR. MANCUSO. NURSING MOUNTER HAND AND CASE MANAGEMENT NOTIFIED. PATIENT WAS SWITCHED TO BE UNDER CARE OF DR. LAYNE. DR. LAYNE AND THIS RN WENT TO SEE THE PATIENT, PATIENT REFUSED TO RECEIVE ANY CARE OR TREATMENT FROM DR. LAYNE. PATIENT REQUESTED TO SIGN THE AMA PAPER. 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
[2020-06-24 10:56] VITALS: BP 143/64
--- NOTE | 2020-06-24 13:09 | NUR ---
PATIENT IS LEAVING AMA, FAMILY IS AT THE DOOR TO TAKE PATIENT HOME, PATIENT LEFT ROOM VIA W/C ACCOMPANIED BY THIS RN AND HOTEL RECEPTIONIST. AMA PAPER WAS SIGNED BY FAMILY MEMBER () PATIENT IS BLIND. PATIENT IS TAKEN HOME BY DAUGHTER AND VIA PERSONAL VEHICLE.
[2020-06-24] MEDS ORDERED: ATORVASTATIN CALCIUM 10 MG TABLET. PO SCH (21:00)
[2020-06-24] MEDS ORDERED: AZITHROMYCIN 250 MG TABLET. PO SCH (21:00)
[2020-06-25] MEDS ORDERED: AZIT250T6 PO (02:23)
== END 2020-06-24 13:10 | disposition left against medical advice (07) | DRG 682 ==
LOC: ER 18:07 → 1 SOUTH 23:54
PROVIDERS: ADMIT Family Medicine; ATTEND Hospitalist
DX: N17.9 Acute kidney failure, unspecified (principal); J18.9 Pneumonia, unspecified organism; I24.8 Other forms of acute ischemic heart disease; D64.9 Anemia, unspecified; E11.22 Type 2 diabetes mellitus with diabetic chronic kidney disease; E11.319 Type 2 diabetes mellitus with unspecified diabetic retinopathy without macular edema; E78.00 Pure hypercholesterolemia, unspecified; E78.5 Hyperlipidemia, unspecified; E86.0 Dehydration; F03.90 Unspecified dementia, unspecified severity, without behavioral disturbance, psychotic disturbance, mood disturbance, and anxiety; H54.7 Unspecified visual loss; I12.9 Hypertensive chronic kidney disease with stage 1 through stage 4 chronic kidney disease, or unspecified chronic kidney disease; I25.10 Atherosclerotic heart disease of native coronary artery without angina pectoris; M47.9 Spondylosis, unspecified; M48.02 Spinal stenosis, cervical region; M81.0 Age-related osteoporosis without current pathological fracture; N18.9 Chronic kidney disease, unspecified; Z20.828 Contact with and (suspected) exposure to other viral communicable diseases; Z96.641 Presence of right artificial hip joint; D69.6 Thrombocytopenia, unspecified; E66.01 Morbid (severe) obesity due to excess calories; F41.9 Anxiety disorder, unspecified; M19.90 Unspecified osteoarthritis, unspecified site; Z87.440 Personal history of urinary (tract) infections; Z53.29 Procedure and treatment not carried out because of patient's decision for other reasons
CPT/HCPCS: 36415; 70450; 71045; 71275; 72125; 73590; 80048; 80076; 81001; 82553; 82947; 83605; 83690; 83735; 84443; 84484; 85025; 85379; 85610; 85730; 86140; 87040; 93005; 96361; 96365; 96366; 96372; J0456; J0696; J1650; J2405; J7050; J7120; P9612; Q9967; U0003; 99285-25

== ENCOUNTER 2020-06-24 22:49 | Emergency (ER) | payer MEDICARE ==
[~2020-06-24] VITALS: Ht 162.6 cm; Wt 81.8 kg
[~2020-06-24 22:49] MED LIST changes: +AMLO2.5T5 PO; +CALC500T31 PO; +ENOX40DI SQ; +FERR-36 PO; +GLUC1KIT IM; +INSU100I13 SQ; +INSU100I17 SQ; +LACT1CAP6 PO; +LINA5TAB4 PO; +LISI-334 PO; +LISI-338 PO; -LISI-517 PO; -LISI20TA18 PO; +LORA-254 PO; +MENT118G TP; +ONDA-84 PO; +VALS40TA2 PO
[2020-06-24] MEDS ORDERED: ASPIRIN 325 MG TABLET PO ONE (23:00)
[2020-06-24] MEDS ORDERED: IV NORMAL SALINE 1,000ML 1,000 ML IV ONE (23:00)
[2020-06-24] MEDS ORDERED: IV NORMAL SALINE 50ML 50 ML ONE (23:32)
[2020-06-24] MEDS ORDERED: cefTRIAXone SODIUM 1 GM VIAL ONE (23:32)
--- NOTE | 2020-06-24 23:48 | PHYS DOC ---
Past History Past Medical History: Diabetes Additional Past Medical Histor: blind Past Surgical History: Other Additional Past Surgical Histo: right tib fib fx Smoking: Non-smoker Alcohol Use: None Drug Use: None General Adult EDM: Chief Complaint: CHEST PAIN HPI: HPI: Patient is a 69 year old female who presents with chest pain. Pt is a resident of [facility] in [place]. Pt presented to the [facility] ED 06/23 with AMD and confusion. CTA revealed right lower lobe pneumonia. Pt was admitted to the hospital for further cardiac workup and pneumonia treatment but left AMA on 06/24. She received 1 dose of rocephin and 1 dose azithromycin prior to leaving. Cardio team believe mild elevations in troponin likely secondary to demand ischemia.Today, pt reports falling sleep at home around 1930 and waking up 2 hours later due to shortness of breath and chest pressure. She has no memory of being in the hospital yesterday or today. Pt denies fever, or sick contacts. Review of Systems: Review of Systems: Constitutional: Denies fever or chills HENT: Denies nasal congestion or sore throat Respiratory: Denies cough or shortness of breath Cardiovascular: + chest pain. Denies palpitations GI: Denies abdominal pain, nausea, or vomiting Integument: Denies rash or skin lesions Neurologic: Denies headache, focal weakness or sensory changes Complete systems limited due to pt's limited memory and confusion. Family History: Family History: Unable to obtain due to pt's limited memory and confusion. Current Medications: Current Meds: Current Medications Medications (Trade) Dose Ordered Sig/April Start Time Stop Time Status Last Admin Dose Admin Aspirin (Paulo Aspirin) 325 mg 1X ONCE 06/24/20 23:00 06/24/20 23:01 DC 06/24/20 23:35 325 MG Ceftriaxone Sodium 1 gm/ Sodium Chloride 50 ml @ 100 mls/hr 1X ONCE 06/24/20 23:15 06/24/20 23:44 06/24/20 23:35 100 MLS/HR Ceftriaxone Sodium (Rocephin) 1 gm STK-MED ONCE 06/24/20 23:32 06/24/20 23:33 DC Sodium Chloride 50 ml @ As Directed STK-MED ONCE 06/24/20 23:32 06/24/20 23:32 DC Allergies: Allergies: Allergies Coded Allergies Type Severity Reaction Last Updated Verified iodine Allergy Unknown 06/24/20 Yes Physical Exam: PE: Constitutional: Well developed, well nourished, no acute distress, non-toxic appearance HENT: Normocephalic, atraumatic Eyes: conjunctiva normal, no discharge Lungs & Thorax: No respiratory distress, equal chest rise and fall, clear to auscultation bilaterally Abdomen: Soft, no tenderness Skin: Warm, dry, no erythema, no rash Extremities: No tenderness, no edema Neurologic: Alert and oriented X 1-2, normal motor function, normal sensory function, no focal deficits noted Current Patient Data: Vital Signs: Vital Signs Date Time Temp Pulse Resp B/P (MAP) Pulse Ox O2 Delivery O2 Flow Rate FiO2 06/24/20 23:05 98.4 86 16 134/55 (81) 98 Room Air EKG: EKG: @2257: HR 81, [place] 162, QRS 74, QT/QTc 366/426 sinus rhythm with underlying artifact, no ST elevation, low voltage QRS. Heart Score: Risk Factors: Risk Factors: DM, Current or recent (<one month) smoker, HTN, HLP, family history of CAD, obesity. Risk Scores: Score 0 - 3: 2.5% MACE over next 6 weeks - Discharge Home Score 4 - 6: 20.3% MACE over next 6 weeks - Admit for Clinical Observation Score 7 - 10: 72.7% MACE over next 6 weeks - Early Invasive Strategies Course & Med Decision Making: Course & Med Decision Making Pertinent Labs reviewed. (See chart for details) Pt is a 69 year old female who presents to the ED with chest pain after leaving [facility] this morning. Pt is somewhat confused and has no memory of being in the hospital. CMP stable. Cardiology consultation 06/24 believe mild troponin elevation from 06/23 likely secondary to demand ischemia. Unlikely acute cardiac cause following workup and cardiology consultation this morning. EKG showed sinus rhythm with underlying artifact but no ST elevation. Chest pain likely from pneumonia. Pt received 1 dose Rocephin 06/23 and Azithromycin 06/24 for pneumonia. Plan to give 1 more dose of Rocephin while in ED for pneumonia. No further imaging indicated at this time as patient had extensive imaging done in ED and hospital 06/23. Elton Disclaimer: Elton Disclaimer: This electronic medical record was generated, in whole or in part, using a voice recognition dictation system. Departure Departure: Impression: Primary Impression: Atypical pneumonia Additional Impression: Elevated CPK Disposition: 01 DC HOME SELF CARE/HOMELESS Condition: STABLE Referrals: WALT NOLASCO (PCP) Patient Instructions: Pneumonia, Adult, [id number] Scripts Azithromycin (AZITHROMYCIN TABLET) 250 Mg Tablet 1 PKG PO UD for Pneumonia, #6 TAB Take 2 tablets today and then one tablet every day thereafter for the next 4 days Prov: AMARA VALENZUELA DO 06/25/20 AMARA VALENZUELA DO Jun 24, 2020 23:48
[2020-06-24 23:49] LABS: BASO % 1 % (0-3); EOS % 1 % (0-3); HEMATOCRIT 27.6 % (36.0-47.0); LYMPH # 0.9 x10^3/uL (1.0-4.8); LYMPH % 13 % (24-48); MEAN CORPUSCULAR HEMOGLOBIN 28 pg (25-35); MEAN CORPUSCULAR HGB CONC 32 g/dL (31-37); MEAN CORPUSCULAR VOLUME 85 fL (79-100); MONO # 0.7 x10^3/uL (0.0-1.1); MONO % 10 % (0-9); NEUT # 5.1 x10^3uL (1.8-7.7); NEUT % 76 % (31-73); PLATELET COUNT 214 x10^3/uL (140-400); RED BLOOD COUNT 3.25 x10^6/uL (3.50-5.40); RED CELL DISTRIBUTION WIDTH 17.9 % (11.5-14.5); WHITE BLOOD COUNT 6.7 x10^3/uL (4.0-11.0)
[2020-06-25] MEDS ORDERED: DEXTROSE 50% 25 GM / 50ML DISP.SYRIN. IV ONE
[2020-06-25 00:08] LABS: CALCIUM 9.2 mg/dL (8.5-10.1); CREATININE 1.8 mg/dL (0.6-1.0); GFR 27.9; POTASSIUM 3.9 mmol/L (3.5-5.1)
[2020-06-25 00:09] LABS: MICROCYTOSIS SLIGHT; PLT ESTIMATE ADEQUATE (ADEQUATE)
[2020-06-25 00:25] LABS: ALBUMIN 3.3 g/dL (3.4-5.0); MAGNESIUM 1.7 mg/dL (1.8-2.4); TOTAL BILIRUBIN 0.5 mg/dL (0.2-1.0); TOTAL PROTEIN 6.7 g/dL (6.4-8.2)
[2020-06-25 00:51] VITALS: BP 122/50
--- NOTE | 2020-06-25 00:52 | EKG ---
[facility] ED [facility] [place] [id number] Test Date: 2020-06-24 Test Time: 22:57:10 Pat Name: EARLENE MONZON Department: Room: Gender: F Administration Internship: : 1950 Requested By: AMARA VALENZUELA Order Number: [id number] Reading MD: Measurements Intervals [place] Rate: 81 P: 228 HI: 162 QRS: 26 QRSD: 74 T: 122 QT: 366 QTc: 426 Interpretive Statements SINUS RHYTHM QRS(T) CONTOUR ABNORMALITY CONSIDER ANTEROLATERAL MYOCARDIAL DAMAGE T ABNORMALITY IN INFERIOR LEADS ABNORMAL ECG RI6.02 No previous ECG available for comparison
[2020-06-25] MEDS ORDERED: AZIT250T6 PO (02:23)
== END 2020-06-25 03:30 | disposition home or self-care (01) ==
LOC: ER 22:49
DX: J18.9 Pneumonia, unspecified organism (principal); R79.89 Other specified abnormal findings of blood chemistry; E11.9 Type 2 diabetes mellitus without complications; Z88.8 Allergy status to other drugs, medicaments and biological substances
CPT/HCPCS: 36415; 80053; 82553; 82947; 83690; 83735; 83880; 84484; 85025; 85610; 85730; 93005; 96374; 96375; 99284; J0696; J7030

== ENCOUNTER → 2020-07-26 | Outpatient (CLI) | payer MEDICARE ==
[~2020-07-26] MED LIST changes: +AZIT250T6 PO
--- NOTE | 2020-07-26 16:49 | RAD ---
EXAM: RIGHT TIBIA/FIBULA 2 VIEWS. HISTORY: Fracture fixation. COMPARISON: 06/23/2020. FINDINGS: An external fixator is in place along the proximal tibial metaphysis. This fixes a comminut ed healing fracture of the proximal tibial metaphysis. Bridging callus is not yet solidly incorporate d. A comminuted fracture of the proximal fibular metaphysis also demonstrates healing changes. There are chronic healed internally fixed fractures of the medial and lateral malleoli. Osteopenia is at least mild. Atherosclerotic calcifications are noted. IMPRESSION: 1. Progressive healing of a proximal tibial metaphyseal fracture status post external fixation. 2. Healing the comminuted fracture of the proximal fibula. Electronically signed by: Addie Jones MD (07/26/2020 4:46 PM) [id number]
== END ==
LOC: DXRAD 11:28
PROVIDERS: ATTEND Physician Assistant
DX: S82.101D Unspecified fracture of upper end of right tibia, subsequent encounter for closed fracture with routine healing (principal); M85.88 Other specified disorders of bone density and structure, other site; X58.XXXD Exposure to other specified factors, subsequent encounter
CPT/HCPCS: 73590

== ENCOUNTER 2020-08-07 18:29 | Inpatient (IN) | payer MEDICARE ==
[~2020-08-07] VITALS: Ht 162.6 cm; Wt 69.0 kg
[~2020-08-07 18:29] MED LIST changes: -LISI-334 PO; -LISI-338 PO; +LISI-517 PO; +LISI20TA18 PO
--- NOTE | 2020-08-07 18:53 | PHYS DOC ---
Past History Past Medical History: Diabetes Additional Past Medical Histor: blind (GERSON MELVIN APRN) Past Surgical History: Other Additional Past Surgical Histo: right tib fib fx (GERSON MELVIN APRN) Smoking: Non-smoker Alcohol Use: None Drug Use: None (GERSON MELVIN APRN) Adult General Chief Complaint Chief Complaint: NEAR [facility] Patient is a 69-year-old female patient who presents from [facility], patient reportedly had a syncopal episode earlier in the day. Patient reportedly has syncopal episodes frequently and staff not concerned over the syncope, as she has these regularly. Patient was found to be hyperglycemic by staff there however, with blood sugar over 300. Reports they sent the patient to ER for evaluation of this. Patient denies any complaints at this time other than some nausea and some abdominal discomfort related to her nausea and vomiting. Patient states she's had some nausea and vomiting for the past few days. Denies any diarrhea. Staff reported to give patient her evening dose of NovoLog prior to sending her to the emergency room. She states normal appetite Patient has been receiving treatment for MRSA infection at the facility on her right lower leg as well. EMS reports patient had blood glucose over 400 on their arrival, and patient was eating chips and cookies on their arrival. (GERSON MELVIN APRN) Review of Systems Review of Systems Constitutional: Denies fever or chills [] Eyes: Denies change in visual acuity, redness, or eye pain [] HENT: Denies nasal congestion or sore throat [] Respiratory: Denies cough or shortness of breath [] Cardiovascular: No additional information not addressed in [facility] [] GI: Denies bloody stools or diarrhea [] does report some upper abdominal pain, states some nausea : Denies dysuria or hematuria [] Musculoskeletal: Denies back pain or joint pain [] Integument: Denies rash or skin lesions [] Neurologic: Denies headache, focal weakness or sensory changes [] Endocrine: Denies polyuria or polydipsia [] patient hyperglycemic per staff at [facility] All other systems were reviewed and found to be within normal limits, except as documented in this note. (GERSON MELVIN APRN) Allergies Allergies Allergies Coded Allergies Type Severity Reaction Last Updated Verified latex Allergy Mild skin irritation 08/07/20 Yes iodine Allergy Unknown 06/24/20 Yes (GERSON MELVIN APRN) Physical Exam Physical Exam Constitutional: Well developed, well nourished, no acute distress, non-toxic appearance. [] HENT: Normocephalic, atraumatic, bilateral external ears normal, oropharynx moist, no oral exudates, nose normal. [] Eyes: PERRLA, EOMI, conjunctiva normal, no discharge. [] Neck: Normal range of motion, no tenderness, supple, no stridor. [] Cardiovascular:Heart rate regular rhythm, no murmur [] Lungs & Thorax: Bilateral breath sounds clear to auscultation [] Abdomen: Bowel sounds normal, soft, no masses, no pulsatile masses. [] Tenderness noted on palpation to the upper abdomen Skin: Warm, dry, no erythema, no rash. [] Back: No tenderness, no CVA tenderness. [] Extremities: No tenderness, no cyanosis, no clubbing, ROM intact, no edema. [] Wrapped lesion to right knee, with [place] covering Neurologic: Alert and oriented X 3, normal motor function, normal sensory function, no focal deficits noted. [] Psychologic: Affect normal, judgement normal, mood normal. [] Intermittent confusion, reportedly normal for patient (GERSON MELVIN APRN) EKG EKG no ST changes per Dr Campbell. Normal Sinus Rhythm @ 71. normal axis. normal intervals. [] (GERSON MELVIN APRN) Radiology/Procedures Radiology/Procedures []ROCEDURE: CHEST AP ONLY Exam: Chest one view INDICATION: Syncope TECHNIQUE: Frontal view of the chest Comparisons: 06/03/2020 FINDINGS: The cardiomediastinal silhouette and pulmonary vessels are within normal limits. The lung and pleural spaces are clear. IMPRESSION: No acute cardiopulmonary process. Electronically signed by: Bozena Sutton MD (08/07/2020 7:08 PM) [facility] DICTATED AND SIGNED BY: BOZENA SUTTON MD DATE: 08/07/201905 (GERSON MELVIN APRN) Heart Score Risk Factors: Risk Factors: DM, Current or recent (<one month) smoker, HTN, HLP, family history of CAD, obesity. Risk Scores: Risk Factors: DM, Current or recent (<one month) smoker, HTN, HLP, family history of CAD, obesity. (GERSON MELVIN APRN) Course & Med Decision Making Course & Med Decision Making Pertinent Labs and Imaging studies reviewed. (See chart for details) []Discussed findings with Dr Stephenson, agrees to admission Given anemia with + FOBS, need to trend troponin due to high-end of normal range, and history of syncope. (GERSON MELVIN APRN) Course & Med Decision Making Did not see or evaluate patient. Did not discuss patient with PA. Agree with work-up and disposition per note. (BLAYNE CAMPBELL MD) Dragon Disclaimer Dragon Disclaimer This electronic medical record was generated, in whole or in part, using a voice recognition dictation system. (GERSON MELVIN APRN) Departure Departure: Impression: Primary Impression: Hyperglycemia Additional Impressions: Syncope Anemia Hyponatremia Urinary tract infection Disposition: ADMITTED INPT THIS HOSP Admitting Physician: Anahi Stephenson (GERSON MELVIN APRN) Condition: STABLE Referrals: WALT NOLASCO (PCP) Problem Qualifiers Additional Impressions: Syncope Syncope type: unspecified Qualified Codes: R55 - Syncope and collapse Anemia Anemia type: due to chronic kidney disease Chronic kidney disease stage: unspecified stage Qualified Codes: N18.9 - Chronic kidney disease, unspecified; D63.1 - Anemia in chronic kidney disease Urinary tract infection Urinary tract infection type: acute cystitis Hematuria presence: with hematuria Qualified Codes: N30.01 - Acute cystitis with hematuria GERSON MELVIN APRN Aug 07, 2020 18:53 BLAYNE CAMPBELL MD Aug 07, 2020 22:04
[2020-08-07] MEDS ORDERED: ONDANSETRON PF 4 MG/2 ML VIAL. IVP ONE (19:00)
[2020-08-07] MEDS ORDERED: IV NORMAL SALINE 1,000ML 1,000 ML IV ONE (19:00)
--- NOTE | 2020-08-07 19:10 | RAD ---
Exam: Chest one view INDICATION: Syncope TECHNIQUE: Frontal view of the chest Comparisons: 06/03/2020 FINDINGS: The cardiomediastinal silhouette and pulmonary vessels are within normal limits. The lung and pleural spaces are clear. IMPRESSION: No acute cardiopulmonary process. Electronically signed by: Bozena Melgar MD (08/07/2020 7:08 PM) MARCIN
[2020-08-07 19:45] LABS: BASO % 1 % (0-3); EOS # 0.1 x10^3/uL (0.0-0.7); EOS % 2 % (0-3); HEMATOCRIT 24.3 % (36.0-47.0); HEMOGLOBIN 7.9 g/dL (12.0-15.5); LYMPH # 0.5 x10^3/uL (1.0-4.8); LYMPH % 11 % (24-48); MEAN CORPUSCULAR HEMOGLOBIN 28 pg (25-35); MEAN CORPUSCULAR HGB CONC 33 g/dL (31-37); MEAN CORPUSCULAR VOLUME 87 fL (79-100); MONO # 0.5 x10^3/uL (0.0-1.1); MONO % 10 % (0-9); NEUT # 3.4 x10^3uL (1.8-7.7); NEUT % 76 % (31-73); PLATELET COUNT 169 x10^3/uL (140-400); RED BLOOD COUNT 2.81 x10^6/uL (3.50-5.40); RED CELL DISTRIBUTION WIDTH 15.9 % (11.5-14.5); WHITE BLOOD COUNT 4.5 x10^3/uL (4.0-11.0)
[2020-08-07 20:00] LABS: CALCIUM 8.7 mg/dL (8.5-10.1); CREATININE 1.8 mg/dL (0.6-1.0); GFR 27.9; POTASSIUM 4.4 mmol/L (3.5-5.1)
[2020-08-07 20:09] LABS: ALBUMIN 2.8 g/dL (3.4-5.0); ALBUMIN/GLOBULIN RATIO 0.7 (1.0-1.7); TOTAL BILIRUBIN 0.2 mg/dL (0.2-1.0); TOTAL PROTEIN 6.8 g/dL (6.4-8.2)
[2020-08-07 20:54] LABS: BILIRUBIN,URINE NEG (NEG); COLOR,URINE YELLOW; GLUCOSE,URINE >=1000 mg/dL (NEG); NITRITE,URINE NEG (NEG); UROBILINOGEN,URINE 0.2 mg/dL (0.2 mg/dL)
[2020-08-07 20:55] LABS: BACTERIA,URINE MOD /HPF (0-FEW); CLARITY,URINE HAZY; SQUAMOUS EPITHELIAL CELL,UR FEW /LPF; WBC,URINE >40 /HPF (0-4)
[2020-08-07] MEDS ORDERED: PANTOPRAZOLE IV 40 MG VIAL. IVP ONE (21:15)
[2020-08-07] MEDS ORDERED: ONDANSETRON PF 4 MG/2 ML VIAL. IVP PRN (21:15)
[2020-08-07] MEDS ORDERED: ACETAMINOPHEN 325 MG TABLET PO PRN (21:15)
[2020-08-07] MEDS ORDERED: IV NORMAL SALINE 50ML 50 ML ONE (21:46)
[2020-08-07] MEDS ORDERED: cefTRIAXone SODIUM 1 GM VIAL ONE (21:47)
[2020-08-07] MEDS: IV NORMAL SALINE 1,000ML 1,000 ML IV SCH (21:59)
[2020-08-07 22:23] LABS: FECAL OB PT POSITIVE (NEG)
--- NOTE | 2020-08-07 22:24 | EKG ---
[address] [address] Test Date: 2020-08-07 Test Time: 19:10:01 Pat Name: EARLENE MONZON Department: Room: Gender: F Sales Counselor: CRISTHIAN : 1950 Requested By: GERSON MELVIN Order Number: [id number] Reading MD: Measurements Intervals [place] Rate: 71 P: 90 OK: 198 QRS: 23 QRSD: 76 T: 68 QT: 402 QTc: 442 Interpretive Statements SINUS RHYTHM R-S TRANSITION ZONE IN V LEADS DISPLACED TO THE RIGHT T ABNORMALITY IN HIGH LATERAL LEADS ABNORMAL ECG RI6.02 No previous ECG available for comparison
[2020-08-08] VITALS (13 sets, daily range): BP systolic 96–163; BP diastolic 51–81
[2020-08-08] MEDS ORDERED: CITA10TA8 PO (03:35)
[2020-08-08] MEDS ORDERED: METO10TA81 PO (03:35)
[2020-08-08] MEDS ORDERED: GUAI600T47 PO (03:35)
[2020-08-08] MEDS ORDERED: INSU100I13 SQ (03:35)
[2020-08-08] MEDS ORDERED: SULF1TAB23 PO (03:35)
[2020-08-08] MEDS ORDERED: DRON10CA5 PO (03:35)
[2020-08-08] MEDS ORDERED: SILV20CR14 TP (04:19)
[2020-08-08] MEDS ORDERED: METOCLOPRAMIDE 5 MG TABLET PO PRN (06:00)
[2020-08-08] MEDS ORDERED: HYDROcodone/APAP 5/325MG 1 TAB TABLET PO PRN (06:00)
[2020-08-08] MEDS ORDERED: ONDANSETRON ODT 4 MG TAB.RAPDIS PO PRN (06:00)
[2020-08-08 06:19] LABS: BASO % 1 % (0-3); EOS % 1 % (0-3); HEMATOCRIT 22.9 % (36.0-47.0); HEMOGLOBIN 7.5 g/dL (12.0-15.5); LYMPH # 0.4 x10^3/uL (1.0-4.8); LYMPH % 11 % (24-48); MEAN CORPUSCULAR HEMOGLOBIN 28 pg (25-35); MEAN CORPUSCULAR HGB CONC 33 g/dL (31-37); MEAN CORPUSCULAR VOLUME 87 fL (79-100); MONO # 0.3 x10^3/uL (0.0-1.1); MONO % 7 % (0-9); NEUT % 80 % (31-73); PLATELET COUNT 159 x10^3/uL (140-400); RED BLOOD COUNT 2.63 x10^6/uL (3.50-5.40); RED CELL DISTRIBUTION WIDTH 16.2 % (11.5-14.5); WHITE BLOOD COUNT 3.8 x10^3/uL (4.0-11.0)
[2020-08-08 06:33] LABS: ALBUMIN 2.7 g/dL (3.4-5.0); ALBUMIN/GLOBULIN RATIO 0.7 (1.0-1.7); CALCIUM 8.5 mg/dL (8.5-10.1); CREATININE 1.6 mg/dL (0.6-1.0); POTASSIUM 5.1 mmol/L (3.5-5.1); TOTAL BILIRUBIN 0.3 mg/dL (0.2-1.0); TOTAL PROTEIN 6.6 g/dL (6.4-8.2)
--- NOTE | 2020-08-08 08:13 | PDOC2 ---
CARDIAC CONSULT DATE OF CONSULT DOS: DATE: 08/08/20 TIME: 08:04 REASON FOR CONSULT Reason for Consult syncope REFERRING PHYSICIAN Referring Physician Dr. Stephenson SOURCE Source: Chart review, Patient HPI History of Present Illness This is a 69 yo female who presented from [facility] secondary to syncopal episode. Patient reports she has some nausea/vomiting over the last couple of days. Yesterday morning, was eating breakfast and began vomiting and had synco pal episode. Was sitting in her chair when their occurred. She did not fall or hit her head. EMS was called. She denies any chest pain, shortness of breath, dizziness, or diaphoresis. No reports of bloody stool or emesis. Does have a h/o recent syncope, traumatic fall with right tibial and fibular fracture and underwent closed reduction and external fixation of tibial fracture. Patient has RLE external fixation device and reportedly has been picking at it and has been receiving treatment for MRSA infection. PAST MEDICAL HISTORY Past Medical History Cardiovascular: HTN, Hyperlipidemia, Other (syncope ) Heme: anemia MSK; arthritis, osteoporosis Endocrine: Diabetes, Renal; CKD Blindness PAST SURGICAL HISTORY Past Surgical History Total hip replacement (right ), Other (Closed reduction and external fixation of right tibia fracture) FAMILY HISTORY Family History: Other (noncontributory ) SOCIAL HISTORY Social History Smoke: No ALCOHOL: none Drugs: None Lives: Has been at [facility] for rehab CURRENT MEDICATIONS Current Medications Current Medications Sodium Chloride 1,000 ml @ 1,000 mls/hr 1X ONCE IV Last administered on 08/07/20at 19:15; Start 08/07/20 at 19:00; Stop 08/07/20 at 19:59; Status DC Ondansetron HCl (Zofran) 4 mg 1X ONCE IVP Last administered on 08/07/20at 19:14; Start 08/07/20 at 19:00; Stop 08/07/20 at 19:01; Status DC Ondansetron HCl (Zofran) 4 mg PRN Q4HRS PRN IVP NAUSEA/VOMITING Last administered on 08/07/20at 23:32; Start 08/07/20 at 21:15; Stop 08/08/20 at 21:14 Sodium Chloride 1,000 ml @ 125 mls/hr Q8H IV Last administered on 08/07/20at 21:59; Start 08/07/20 at 21:15; Stop 08/08/20 at 21:14 Acetaminophen (Tylenol) 650 mg PRN Q4HRS PRN PO FEVER > 100.3'F Last administered on 08/08/20at 04:26; Start 08/07/20 at 21:15; Stop 08/08/20 at 21:14 Pantoprazole Sodium (Protonix Vial) 40 mg 1X ONCE IVP Last administered on 08/07/20at 21:58; Start 08/07/20 at 21:15; Stop 08/07/20 at 21:23; Status DC Ceftriaxone Sodium 1 gm/ Sodium Chloride 50 ml @ 100 mls/hr 1X ONCE IV Last administered on 08/07/20at 21:59; Start 08/07/20 at 21:45; Stop 08/07/20 at 22:14; Status DC Sodium Chloride 50 ml @ As Directed STK-MED ONCE .ROUTE ; Start 08/07/20 at 21:46; Stop 08/07/20 at 21:47; Status DC Ceftriaxone Sodium (Rocephin) 1 gm STK-MED ONCE .ROUTE ; Start 08/07/20 at 21:47; Stop 08/07/20 at 21:47; Status DC Amlodipine Besylate (Norvasc) 2.5 mg DAILY PO ; Start 08/08/20 at 09:00 Citalopram Hydrobromide (CeleXA) 10 mg DAILY PO ; Start 08/08/20 at 09:00 Guaifenesin (Mucinex Er) 600 mg PRN BID PRN PO CONGESTION; Start 08/08/20 at 06:00 Acetaminophen/ Hydrocodone Bitart (Lortab 5/325) 1 tab PRN Q6HRS PRN PO PAIN; Start 08/08/20 at 06:00 Lorazepam (Ativan) 1 mg Q6HRS PO ; Start 08/08/20 at 06:00 Metoclopramide HCl (Reglan) 5 mg PRN BFRMEALHC PRN PO NAUSEA/VOMITING; Start 08/08/20 at 06:00 Silver Sulfadiazine (Silvadene) 1 fam DAILY TP ; Start 08/08/20 at 09:00 Trimethoprim/ Sulfamethoxazole (Bactrim Ss) 2 tab BID PO ; Start 08/08/20 at 09:00; Stop 08/08/20 at 21:01 Dronabinol (Marinol) 5 mg BIDACLD PO ; Start 08/08/20 at 11:30 Insulin Human Lispro (HumaLOG) 5 units TIDWMEALS SQ ; Start 08/08/20 at 08:00 Insulin Glargine (Lantus Syringe) 8 unit QHS SQ ; Start 08/08/20 at 21:00 Insulin Glargine (Lantus Syringe) 10 unit DAILY SQ ; Start 08/08/20 at 09:00 Atorvastatin Calcium (Lipitor) 5 mg QHS PO ; Start 08/08/20 at 21:00 Ondansetron HCl (Zofran Odt) 4 mg PRN Q6HRS PRN PO NAUSEA/VOMITING; Start 08/08/20 at 06:00 Losartan Potassium (Cozaar) 25 mg DAILY PO ; Start 08/08/20 at 09:00 Active Scripts Active Reported Bactrim 400-80 Mg Tablet (Sulfamethoxazole/Trimethoprim) 1 Each Tablet 2 Tab PO BID 7 Days Reglan (Metoclopramide Hcl) 10 Mg Tablet 1 Tab PO QID PRN 30 Days before food and bedtime Dronabinol 10 Mg Capsule 0.5 Cap PO BID MDD 2 Capsule(s) 30 Days Mucinex (Guaifenesin) 600 Mg Tablet.er 1 Tab PO BID PRN 10 Days Celexa (Citalopram Hydrobromide) 10 Mg Tablet 10 Mg PO DAILY Lantus Solostar (Insulin Glargine,Hum.rec.anlog) 100 Unit/1 Ml Insuln.pen 8 Unit SQ QHS Ondansetron Hcl 4 Mg Tablet 4 Mg PO PRN Q6HRS PRN Novolog Flexpen (Insulin Aspart) 100 Unit/1 Ml Insuln.pen 5 Unit SQ TIDWMEALS Lovastatin 20 Mg Tablet 20 Mg PO DAILY Lantus Solostar (Insulin Glargine,Hum.rec.anlog) 100 Unit/1 Ml Insuln.pen 10 Unit SQ DAILY [place] 5-325 Tablet (Hydrocodone Bit/Acetaminophen) 1 Each Tablet 1 Tab PO PRN Q6HRS PRN Diovan (Valsartan) 40 Mg Tablet 40 Mg PO DAILY Ativan (Lorazepam) 1 Mg Tablet 1 Mg PO Q6HRS Amlodipine Besylate 2.5 Mg Tablet 2.5 Mg PO DAILY Silvadene (Silver Sulfadiazine) 20 Gm Cream..g. 1 Fam TP DAILY 7 Days apply to affected area(s) ALLERGIES Allergies: Coded Allergies: iodine (Verified Allergy, Intermediate, 08/08/20) latex (Verified Allergy, Mild, skin irritation , 08/07/20) ROS Review of Systems 14 point ROS conducted with pertinent positives noted above in HPI PHYSICAL EXAM Physical Exam General: Alert, oriented, No acute distress HEENT: Atraumatic Lungs: Other (diminished ) Heart: Regular rate (tele SR) Abdomen: Soft, No tenderness Extremities: No edema, Normal pulses. RLE external fixation device Skin: No breakdown Neuro: Normal speech, Sensation intact Psych/Mental Status: calm, cooperative, appropriate MUSCULOSKELETAL: Osteoarthritic changes both hands VITALS Vital Signs Vital Signs Date Time Temp Pulse Resp B/P (MAP) Pulse Ox O2 Delivery O2 Flow Rate FiO2 08/08/20 00:52 Room Air 08/08/20 00:00 98.6 77 20 163/64 (97) 99 LABS LABS Laboratory Tests Test 08/07/20 19:25 08/07/20 19:48 08/07/20 20:25 08/07/20 21:05 White Blood Count 4.5 x10^3/uL (4.0-11.0) Red Blood Count 2.81 x10^6/uL (3.50-5.40) Hemoglobin 7.9 g/dL (12.0-15.5) Hematocrit 24.3 % (36.0-47.0) Mean Corpuscular Volume 87 fL (79-100) Mean Corpuscular Hemoglobin 28 pg (25-35) Mean Corpuscular Hemoglobin Concent 33 g/dL (31-37) Red Cell Distribution Width 15.9 % (11.5-14.5) Platelet Count 169 x10^3/uL (140-400) Neutrophils (%) (Auto) 76 % (31-73) Lymphocytes (%) (Auto) 11 % (24-48) Monocytes (%) (Auto) 10 % (0-9) Eosinophils (%) (Auto) 2 % (0-3) Basophils (%) (Auto) 1 % (0-3) Neutrophils # (Auto) 3.4 x10^3uL (1.8-7.7) Lymphocytes # (Auto) 0.5 x10^3/uL (1.0-4.8) Monocytes # (Auto) 0.5 x10^3/uL (0.0-1.1) Eosinophils # (Auto) 0.1 x10^3/uL (0.0-0.7) Basophils # (Auto) 0.0 x10^3/uL (0.0-0.2) Sodium Level 128 mmol/L (136-145) Potassium Level 4.4 mmol/L (3.5-5.1) Chloride Level 93 mmol/L (98-107) Carbon Dioxide Level 28 mmol/L (21-32) Anion Gap 7 (6-14) Blood Urea Nitrogen 29 mg/dL (7-20) Creatinine 1.8 mg/dL (0.6-1.0) Estimated GFR (Cockcroft-Gault) 27.9 BUN/Creatinine Ratio 16 (6-20) Glucose Level 308 mg/dL (70-99) Lactic Acid Level 1.2 mmol/L (0.4-2.0) Calcium Level 8.7 mg/dL (8.5-10.1) Total Bilirubin 0.2 mg/dL (0.2-1.0) Aspartate Amino Transf (AST/SGOT) 14 U/L (15-37) Alanine Aminotransferase (ALT/SGPT) 17 U/L (14-59) Alkaline Phosphatase 121 U/L (46-116) Troponin I Quantitative 0.053 ng/mL (0-0.055) Total Protein 6.8 g/dL (6.4-8.2) Albumin 2.8 g/dL (3.4-5.0) Albumin/Globulin Ratio 0.7 (1.0-1.7) Acetone Level Neg (NEG) Urine Collection Type U cath Urine Color Yellow Urine Clarity Hazy Urine pH 5.5 Urine Specific [place] 1.020 Urine Protein Neg (NEG-TRACE) Urine Glucose (UA) >=1000 mg/dL (NEG) Urine Ketones (Stick) Neg mg/dL (NEG) Urine Blood Trace (NEG) Urine Nitrite Neg (NEG) Urine Bilirubin Neg (NEG) Urine Urobilinogen Dipstick 0.2 mg/dL (0.2 mg/dL) Urine Leukocyte Esterase Mod (NEG) Urine RBC 3-5 /HPF (0-2) Urine WBC >40 /HPF (0-4) Urine Squamous Epithelial Cells Few /LPF Urine Bacteria Mod /HPF (0-FEW) Glucose (Fingerstick) 312 mg/dL (70-99) Stool Occult Blood Positive (NEG) Test 08/08/20 05:47 White Blood Count 3.8 x10^3/uL (4.0-11.0) Red Blood Count 2.63 x10^6/uL (3.50-5.40) Hemoglobin 7.5 g/dL (12.0-15.5) Hematocrit 22.9 % (36.0-47.0) Mean Corpuscular Volume 87 fL (79-100) Mean Corpuscular Hemoglobin 28 pg (25-35) Mean Corpuscular Hemoglobin Concent 33 g/dL (31-37) Red Cell Distribution Width 16.2 % (11.5-14.5) Platelet Count 159 x10^3/uL (140-400) Neutrophils (%) (Auto) 80 % (31-73) Lymphocytes (%) (Auto) 11 % (24-48) Monocytes (%) (Auto) 7 % (0-9) Eosinophils (%) (Auto) 1 % (0-3) Basophils (%) (Auto) 1 % (0-3) Neutrophils # (Auto) 3.0 x10^3uL (1.8-7.7) Lymphocytes # (Auto) 0.4 x10^3/uL (1.0-4.8) Monocytes # (Auto) 0.3 x10^3/uL (0.0-1.1) Eosinophils # (Auto) 0.0 x10^3/uL (0.0-0.7) Basophils # (Auto) 0.0 x10^3/uL (0.0-0.2) Sodium Level 129 mmol/L (136-145) Potassium Level 5.1 mmol/L (3.5-5.1) Chloride Level 94 mmol/L (98-107) Carbon Dioxide Level 24 mmol/L (21-32) Anion Gap 11 (6-14) Blood Urea Nitrogen 25 mg/dL (7-20) Creatinine 1.6 mg/dL (0.6-1.0) Estimated GFR (Cockcroft-Gault) 32.0 BUN/Creatinine Ratio 16 (6-20) Glucose Level 417 mg/dL (70-99) Calcium Level 8.5 mg/dL (8.5-10.1) Total Bilirubin 0.3 mg/dL (0.2-1.0) Aspartate Amino Transf (AST/SGOT) 14 U/L (15-37) Alanine Aminotransferase (ALT/SGPT) 16 U/L (14-59) Alkaline Phosphatase 117 U/L (46-116) Troponin I Quantitative 0.058 ng/mL (0-0.055) Total Protein 6.6 g/dL (6.4-8.2) Albumin 2.7 g/dL (3.4-5.0) Albumin/Globulin Ratio 0.7 (1.0-1.7) ECHOCARDIOGRAM Echocardiogram <Conclusion> Left ventricle systolic function is normal. The Ejection Fraction is 65%. There is normal LV segmental wall motion. Mild aortic regurgitation. Trace tricuspid regurgitation. The PA pressure was estimated at 45-50 mmHg. There is no evidence of significant pericardial effusion. DATE: 06/05/20 [id number] ASSESSMENT/PLAN Assessment/Plan 1. Syncopal episode with h/o syncope, traumatic fall with right tibial and fibular fracture. S/p closed reduction and external fixation of tibial fracture. Has RLE external fixation device. No acute event on tele thus far. Most probable vasovagal episode in setting of vomiting. 2. Mild troponin elevation; highest 0.058. most probable type II, demand ischemia. CP free. Recent echo with preserved LV systolic function. 3. Leukopenia 4. Anemia; fecal occult + 5. FADIA on CKD 6. Hypertension; controlled 7. Hyperlipidemia; LDL 83 8. Diabetes,II; uncontrolled. as per IM 9. Hyponatremia 10. Nausea/vomiting 11. RLE MRSA infection Recommendations Trend troponin Monitor tele Statin therapy. Will hold off on ASA with anemia and + fecal occult Consider outpatient ischemic evaluation and implantable loop recorder given recurrent syncope Supportive care Will arrange follow up in our office YANNI KAMARA APRN Aug 08, 2020 08:13
[2020-08-08] MEDS: silver sulfADIAZINE 1% CREAM 50GM JAR. TP SCH (08:22)
[2020-08-08] MEDS: amLODIPine BESYLATE 2.5 MG TABLET PO SCH (08:22)
[2020-08-08] MEDS: IV NORMAL SALINE 1,000ML 1,000 ML IV SCH ×2 (08:22→10:30)
[2020-08-08] MEDS: CITALOPRAM 10 MG TABLET. PO SCH (08:22)
[2020-08-08] MEDS: LORazepam 1 MG TABLET PO SCH ×2 (08:23→11:46)
[2020-08-08] MEDS: SMZ/TMP 400/80MG TABLET. PO SCH ×2 (08:24→21:00)
[2020-08-08] MEDS: INSULIN LISPRO 300 UNITS/3 ML VIAL. SQ SCH ×3 (08:26→16:55)
[2020-08-08] MEDS ORDERED: LOSARTAN 25 MG TABLET. PO SCH (09:00)
[2020-08-08] MEDS ORDERED: INSULIN GLARGINE SYRINGE. SQ SCH ×2 (09:00→21:00)
[2020-08-08] MEDS: DRONABINOL 2.5 MG CAPSULE PO SCH ×2 (11:36→16:57)
--- NOTE | 2020-08-08 12:45 | PN ---
DATE: 08/08/2020 SUBJECTIVE: The patient is resting, slightly propped up in bed, in no apparent respiratory distress. She is lethargic, but arousable. She does not really track and it seems that she has more visual impairment than what she had before. PHYSICAL EXAMINATION: GENERAL: When I examined her this afternoon, she was pale, no jaundice, cyanosis or thyromegaly. No jugular venous distension. No limb edema. VITAL SIGNS: Her heart rate was 77, blood pressure was 163/64, temperature was 98.6, respiratory rate 20, and oxygen saturation was 99% on room air. HEAD, EYES, EARS, NOSE, AND THROAT: Showed normocephalic, atraumatic. NECK: Supple. HEART: Normal first and second heart sounds. No gallop, rub or murmur. CHEST: Clear to auscultation. No crepitation or rhonchi. ABDOMEN: Distended, soft, nontender. NEUROLOGIC: She is very lethargic, but arousable. All her cranial nerves are grossly intact, although she seemed to have more visual impairment than she used to have before. She is able to move her upper extremities without difficulty. She is nonweightbearing and she was evaluated by physical therapy and recommended Shyam lift. Her intake and output were incompletely recorded. LABORATORY DATA: Her lab work this morning showed that her white cell count was 3800, hemoglobin 7.5, hematocrit 22.9, MCV 87 and platelet count of 159,000. Her chemistry showed that her serum sodium today was 129, potassium 5.1, chloride 94, bicarbonate 24, anion gap of 11, BUN 25, creatinine 1.6, estimated GFR was 32 mL per minute. Her glucose continues to be high at 417, total protein was 8.5. AST and ALT were normal. Alkaline phosphatase slightly elevated. Total protein 6.6, albumin was 2.7. Her second and third cardiac enzyme showed troponin to be 0.058 and 0.060. She was seen actually by the neonatal surgeon who basically stated that the patient probably has type 1 demand ischemia chest pain free, recent echo with preserved left ventricular systolic function. The patient was basically continued to have poorly controlled blood sugar. She has [id number] kidney injury. Her creatinine is slightly better today from 1.8 to 1.6. Other medical problems include hypertension, hyperlipidemia, hyponatremia, mostly dilutional. She has also anemia with positive stool for occult blood and she has obviously right lower extremity MRSA infection for which she is on oral Bactrim. She has also altered mental status as this patient really seems to be very lethargic compared to when I saw her last time, she used to be very uncooperative and noncompliant and questions and refuses all the testing. She seemed to be more compliant this time, but I am concerned that her lethargy seems to be more than usual. PLAN: My plan is to arrange for a CT scan of the head without contrast as well as CT scan of the chest, abdomen and pelvis without contrast as she has blood, protein in the urine as well as in the stool. I will tighten her blood sugar control and continue with IV fluid for the time being. I have ordered also bilateral venous Doppler ultrasound and once we have all this information available, we will decide on further management. LOBO CHRISTENSEN MD DR: JUS/nolan JOB#: [id number] / [id number]
--- NOTE | 2020-08-08 13:01 | HP ---
ADMIT DATE: 08/07/2020 HISTORY OF PRESENT ILLNESS: The patient is a 69-year-old female patient[place] [facility] [place] brought to the Emergency Room with a syncopal episode earlier on the day of admission. The patient reports that she has syncopal episodes frequently and staff is not concerned over the syncope as she has these repeatedly. The patient was found to be hyperglycemic by staff there; however, her blood sugar was over 300 mg per reports and they sent the patient to ER for evaluation of this. The patient denies any complaint when she arrived to the Emergency Room, then some nausea and some abdominal discomfort related to her nausea and vomiting. She stated that she has had some nausea and vomiting for the past few days. Denied any diarrhea. The staff reported to have given the evening an evening dose of NovoLog prior to sending her to the Emergency Room. She stated that her appetite is normal. The patient has been receiving treatment for MRSA infection at the facility on her right lower leg as well. The EMS reported the patient's blood sugar was 400 on their arrival and was eating chips and cookies on their arrival. She was extensively investigated in the Emergency Room. She had lab work, which showed that the patient was anemic. Her chemistry showed that she has hyponatremia, mild hyperkalemia. She has chronic kidney disease and hyperglycemia. Her first set of cardiac enzyme was slightly elevated at 0.058. Her D-dimer was 1.54. Urinalysis showed the urine was yellow, hazy with a pH of 5.5, specific gravity of 1.020. There was large amount of glucose, negative for ketones. There was moderate amount of leukocyte esterase, 3-5 rbc's, more than 40 wbc's, and moderate amount of bacteria. The acetone was negative. She did have chest x-ray, which basically showed that the cardiomediastinal silhouette and pulmonary vessels are within normal limits. The lungs and pleural spaces are clear and the patient was admitted for hyperglycemia, syncope, anemia, hypernatremia, urinary tract infection. She was started on IV fluid in the form of normal saline and was continued on her Bactrim for her MRSA and was started on ceftriaxone for her urinary tract infection. PAST MEDICAL HISTORY: Significant for osteoporosis, osteoarthritis, anemia and thrombocytopenia. She has type 2 diabetes, recurrent urinary tract infection as well as coronary artery disease. She has had traumatic right proximal tibial plateau and fibular fracture after she fell and was treated initially with hinged knee immobilizer; however, she underwent external fixation successfully. She is also known to have hypertension, hyperlipidemia and had multiple syncopal episodes. PAST SURGICAL HISTORY: Significant for right ankle joint fracture, status post open reduction and internal fixation; right hip total arthroplasty as well as surgery on her right wrist. ALLERGIES: SHE IS APPARENTLY ALLERGIC TO IODINE AND LATEX. MEDICATIONS: She is currently on following medications: She is on sulfamethoxazole/trimethoprim 1 tablet twice a day for 7 days. She is on lovastatin 20 mg once a day, amlodipine 2.5 mg daily. She is on valsartan for Diovan 40 mg once a day, [place] 5/325 one tablet every 6 hours, citalopram hydrobromide for Celexa 10 mg once a day, lorazepam 1 mg p.o. at bedtime, guaifenesin for Mucinex 600 mg twice a day, ondansetron 4 mg every 6 hours, dronabinol 5 mg p.o. b.i.d. She is on metoclopramide 10 mg before meals and bedtime. She is on NovoLog FlexPen 5 units subcutaneously before meals and Lantus 10 units before meals daily and 8 units at bedtime. She is on silver sulfadiazine cream for Silvadene cream applied topically to right lower extremity external fixation wounds daily. FAMILY HISTORY: Noncontributory. SOCIAL HISTORY: She is and currently lives at [facility]. Her daughter visits her. She does not smoke, drink alcohol or use recreational drugs. She continued to be nonweightbearing as she has an external fixator to her right lower extremity. PHYSICAL EXAMINATION: GENERAL: On arrival to the Emergency Room, she was pale, but no jaundice, cyanosis or thyromegaly. No jugular venous distension. No limb edema. VITAL SIGNS: Her heart rate was 91, blood pressure was 133/66, temperature was 98.4, respiratory rate was 14 and oxygen saturation was 97% on room air. HEAD, EYES, EARS, NOSE AND THROAT: Showed she is normocephalic, atraumatic. NECK: Supple. HEART: Showed normal first and second heart sounds. No gallop, rub or murmur. CHEST: Clear to auscultation. No crepitation or rhonchi. ABDOMEN: Distended, soft, nontender. No guarding or rigidity. No organomegaly. All hernial orifice intact. Bowel sounds normal. NEUROLOGIC: On admission to Emergency Room and according to the ER nurse practitioner, the patient was alert, oriented x 3, normal motor function, normal sensory function with no obvious focal neurological deficit. PSYCHIATRIC: Her affect, judgment and mood were normal. She has intermittent episodes, according to her, of confusion; reportedly normal for the patient. IMAGING STUDIES: While in the Emergency Room, she has had an EKG, which showed that she was in normal sinus rhythm at 71 beats per minute with normal axis and intervals. Her chest x-ray showed that cardiomediastinal silhouette and pulmonary vessels are within normal limits. The lungs and pleural spaces are clear. LABORATORY DATA: She did have lab work done, which showed a white cell count 4500, hemoglobin 7.9, hematocrit 24, MCV 87 and platelet count of 169,000 with normal manual differential. Her chemistry showed a serum sodium of 129, potassium 5.1, chloride 94, bicarbonate 24, anion gap of 11, BUN 25, creatinine 1.6, estimated GFR was 32 mL per minute. Her glucose was ____, calcium was 8.5. Total bilirubin, AST, ALT, alkaline phosphatase are normal. First set of cardiac enzymes showed troponin to be 0.058. Total protein was 6.6, albumin 2.7. Her D-dimer was high at 1.54. Urinalysis showed the urine was yellow, hazy with a pH of 5.5, specific gravity of 1.020. The urine was negative for protein. There is large amount of glucose, negative for ketones, trace amount of blood, negative for nitrite. There is moderate amount of leukocyte esterase, 3-5 rbc's, more than 40 wbc's, and moderate amount of bacteria. Her acetone was negative. Her stool for occult blood was positive. ASSESSMENT AND PLAN: The patient was admitted and was started on IV fluid in the form of normal saline at 125 mL per hour. Continue with all her medications. We will obviously follow with her labs closely and decide on further management accordingly. LOBO CHRISTENSEN MD DR: JUS/nolan JOB#: [id number] / [id number]
[2020-08-08 13:17] LABS: HEMATOCRIT 20.8 % (36.0-47.0)
[2020-08-08 13:27] LABS: HEMOGLOBIN 6.9 g/dL (12.0-15.5)
--- NOTE | 2020-08-08 15:12 | RAD ---
Exam: CT head INDICATION: Altered mental status TECHNIQUE: Sequential axial images through the head were obtained without the administration of IV co ntrast. Comparisons: 06/23/2020 FINDINGS: No focal parenchymal lesion or hemorrhage is identified. There is no midline shift or sulcal effaceme nt. Patchy hypodensity in the periventricular white matter. No acute vascular territory infarction is annamaria ntified. Lakhani-white distinction is preserved. The ventricular system is within normal limits without compression hydrocephalus. The basal cisterns are well maintained. The visualized portions of the paranasal sinuses and mastoid air cells are well-pneumatized. No acute fractures. IMPRESSION: No acute intracranial abnormality. Exposure: One or more of the following in the visualized dose reduction techniques were utilized for this examination: 1. Automated exposure control 2. Adjustment of the MA and/or KV according to patient size Use of iterative of reconstructive technique Electronically signed by: Bozena Melgar MD (08/08/2020 3:09 PM) [facility]
--- NOTE | 2020-08-08 15:18 | RAD ---
Exam: CT of chest, abdomen and pelvis without contrast INDICATION: Altered mental status, low hemoglobin TECHNIQUE: Sequential axial images through the chest, abdomen and pelvis obtained without IV contrast . Sagittal and coronal reformatted images were reconstructed from the axial data and reviewed. Comparisons: None FINDINGS: There is a large right thyroid lobe. No enlarged mediastinal lymph nodes. Heart size is normal. Mild coronary artery calcification are noted. Thoracic aorta has a normal cours e and caliber. Pulmonary artery is not enlarged. Airways are patent. No consolidation or pneumothorax. Strandy opacities at the dependent portion lung s likely representing atelectasis. No pleural effusion or thickening. Liver, spleen, pancreas, gallbladder and adrenals are unremarkable. No perinephric inflammation or hydronephrosis. No renal or ureteral calculi are identified. Bladder is partially distended and not well evaluated. Uterus is nonidentified. No abnormal adnexal m ass. There is a large amount stool noted at the rectum. Remainder of the large and small bowel are unremar kable. No free intra-abdominal air or fluid.. Abdominal aorta has a normal course and caliber. No enlarged intra-abdominal lymph nodes are identified. No suspicious osseous lesions or acute fractures. IMPRESSION: 1. Large amount stool noted at the rectum. There is mild associated wall thickening. Correlate for s tercoral colitis 2. No hemorrhage identified within the chest, abdomen or pelvis. 3. Enlarged right thyroid lobe. If not already characterized further evaluation with nonemergent/out patient thyroid ultrasound is recommended. Exposure: One or more of the following in the visualized dose reduction techniques were utilized for this examination: 1. Automated exposure control 2. Adjustment of the MA and/or KV according to patient size 3. Use of iterative of reconstructive technique Electronically signed by: Bozena Melgar MD (08/08/2020 3:16 PM) [facility]
--- NOTE | 2020-08-08 15:42 | RAD ---
EXAM: Right lower extremity venous Doppler sonogram. HISTORY: Pain and swelling. TECHNIQUE: Lakhani scale and color Doppler sonographic evaluation of the right lower extremity veins wit h spectral waveform analysis was performed. FINDINGS: There is normal color flow, normal compressibility and there are normal spectral waveforms in the common femoral, superficial femoral, popliteal and greater saphenous veins. The calf veins are not formally assessed due to patient motion and external fixation instrumentation. IMPRESSION: No Doppler evidence of lower extremity deep venous thrombosis, with nonassessment of the calf vessels due to patient motion and external fixation instrumentation. Electronically signed by: Ruth Jaramillo MD (08/08/2020 3:40 PM) [id number]
[2020-08-08] MEDS: INSULIN GLARGINE SYRINGE. SQ SCH (21:00)
[2020-08-08] MEDS: ATORVASTATIN CALCIUM 10 MG TABLET. PO SCH (22:29)
[2020-08-09 05:40] VITALS: BP 157/67
[2020-08-09 06:15] LABS: HEMATOCRIT 31.3 % (36.0-47.0); HEMOGLOBIN 10.4 g/dL (12.0-15.5); RED BLOOD COUNT 3.56 x10^6/uL (3.50-5.40); RED CELL DISTRIBUTION WIDTH 15.7 % (11.5-14.5); WHITE BLOOD COUNT 4.7 x10^3/uL (4.0-11.0)
[2020-08-09 06:48] LABS: ALBUMIN 2.7 g/dL (3.4-5.0); ALBUMIN/GLOBULIN RATIO 0.7 (1.0-1.7); CREATININE 1.2 mg/dL (0.6-1.0); GFR 44.5; POTASSIUM 4.4 mmol/L (3.5-5.1); TOTAL BILIRUBIN 0.3 mg/dL (0.2-1.0); TOTAL PROTEIN 6.6 g/dL (6.4-8.2)
[2020-08-09] MEDS ORDERED: MAGNESIUM CITRATE 296 ML SOLUTION. PO ONE (07:45)
[2020-08-09] MEDS: INSULIN GLARGINE SYRINGE. SQ SCH ×2 (08:13→21:00)
[2020-08-09] MEDS: CITALOPRAM 10 MG TABLET. PO SCH (08:15)
[2020-08-09] MEDS: POLYETHYLENE GLYCOL 3350 17 GM PACKET. PO SCH (08:15)
[2020-08-09] MEDS: silver sulfADIAZINE 1% CREAM 50GM JAR. TP SCH (08:15)
[2020-08-09] MEDS: DOCUSATE SODIUM 100 MG CAPSULE PO SCH ×2 (08:15→21:01)
[2020-08-09] MEDS: amLODIPine BESYLATE 2.5 MG TABLET PO SCH (08:15)
[2020-08-09] MEDS: INSULIN LISPRO 300 UNITS/3 ML VIAL. SQ SCH ×3 (08:15→17:06)
[2020-08-09] MEDS ORDERED: MAGNESIUM CITRATE 296 ML SOLUTION. PO PRN (08:45)
[2020-08-09 10:24] VITALS: BP 131/60
[2020-08-09] MEDS: DRONABINOL 2.5 MG CAPSULE PO SCH ×2 (12:16→17:06)
[2020-08-09 15:00] VITALS: BP 128/78
[2020-08-09 19:00] VITALS: BP 130/59
--- NOTE | 2020-08-09 19:04 | PN ---
DATE: 08/09/2020 SUBJECTIVE: The patient is resting, slightly propped up in bed, in no apparent distress. She denied any complaint except that she is constipated and has not had any bowel movement. She also complained that she has episodes of nausea, vomiting when she eats, although she has not vomited this morning when she ate her breakfast. PHYSICAL EXAMINATION: GENERAL: When I examined her, she looked pale, but no jaundice, cyanosis or thyromegaly. No jugular venous distension. No limb edema. VITAL SIGNS: Her heart rate was 67, blood pressure was 131/60, temperature 98.5, respiratory rate was 16 and oxygen saturation was 99% on room air. HEAD, EYES, EARS, NOSE AND THROAT: Showed normocephalic, atraumatic. NECK: Supple. HEART: Showed normal first and second heart sounds. No gallop, rub or murmur. CHEST: Clear to auscultation. No crepitation or rhonchi. ABDOMEN: Distended, soft, nontender. No guarding or rigidity. No organomegaly. All hernial orifice intact. Bowel sounds normal. NEUROLOGIC: She has some visual impairment, but all other cranial nerves are intact. She moves upper extremities without difficulty. She has proximal right tibia and fibula fracture treated with external fixator that is still in place. She is a Shyam lift. Her intake was 400, output was 950. LABORATORY DATA: Her lab work this morning showed a white cell count of 4700, hemoglobin 10, hematocrit 31, MCV 88 and platelet count of 162,000. Her serum sodium was 131, potassium 4.4, chloride 98, bicarbonate 26, anion gap of 7, BUN 16, creatinine 1.2, estimated GFR was 44.5 mL per minute. Her blood sugar 136, calcium was 9. Total bilirubin, AST, ALT, alkaline phosphatase were normal. Total protein 6.6, albumin was 2.7. Her D-dimer was high at 1.54. Urinalysis essentially showed that there was moderate amount of leukocyte esterase, only 3-5 rbc's and more than 40 wbc's. ASSESSMENT: 1. Syncopal episode, probably multifactorial. 2. The patient is known to have type 2 diabetes for extended periods of time and possible autonomic neuropathy. 3. She also has acute on chronic kidney injury, likely dehydration that is improving. 4. Anemia, status post 2 units of packed RBCs. 5. Hypertension. 6. Hyperlipidemia. 7. She has grown methicillin-resistant Staphylococcus aureus from her right lower extremity around his external fixator, for which she completed a 7-day course of Bactrim. PLAN: My plan is to continue to monitor her blood sugars and adjust insulin as needed. In fact, her blood sugar seems to be much better controlled compared to today she was admitted. We will continue with MiraLax and Colace for his constipation. Continue with amlodipine and she is also metoclopramide for diabetic gastroparesis. Obviously, we will probably [facility]. LOBO CHRISTENSEN MD DR: JUS/nolan JOB#: [id number] / [id number]
[2020-08-09] MEDS: ATORVASTATIN CALCIUM 10 MG TABLET. PO SCH (21:02)
[2020-08-09 23:00] VITALS: BP 111/52
[2020-08-10 07:06] LABS: BASO % 1 % (0-3); EOS # 0.1 x10^3/uL (0.0-0.7); EOS % 3 % (0-3); HEMATOCRIT 33.6 % (36.0-47.0); HEMOGLOBIN 11.2 g/dL (12.0-15.5); LYMPH # 0.7 x10^3/uL (1.0-4.8); LYMPH % 19 % (24-48); MEAN CORPUSCULAR HEMOGLOBIN 29 pg (25-35); MEAN CORPUSCULAR HGB CONC 33 g/dL (31-37); MEAN CORPUSCULAR VOLUME 88 fL (79-100); MONO # 0.4 x10^3/uL (0.0-1.1); MONO % 10 % (0-9); NEUT # 2.6 x10^3uL (1.8-7.7); NEUT % 67 % (31-73); PLATELET COUNT 176 x10^3/uL (140-400); RED BLOOD COUNT 3.84 x10^6/uL (3.50-5.40); RED CELL DISTRIBUTION WIDTH 15.3 % (11.5-14.5); WHITE BLOOD COUNT 3.9 x10^3/uL (4.0-11.0)
[2020-08-10 07:33] VITALS: BP 156/64
[2020-08-10] MEDS: CITALOPRAM 10 MG TABLET. PO SCH (08:46)
[2020-08-10] MEDS: silver sulfADIAZINE 1% CREAM 50GM JAR. TP SCH (08:47)
[2020-08-10] MEDS: POLYETHYLENE GLYCOL 3350 17 GM PACKET. PO SCH (08:47)
[2020-08-10] MEDS: DOCUSATE SODIUM 100 MG CAPSULE PO SCH (08:47)
[2020-08-10] MEDS: amLODIPine BESYLATE 2.5 MG TABLET PO SCH (08:47)
[2020-08-10] MEDS: INSULIN LISPRO 300 UNITS/3 ML VIAL. SQ SCH (08:48)
[2020-08-10] MEDS: INSULIN GLARGINE SYRINGE. SQ SCH (08:49)
[2020-08-10 10:57] VITALS: BP 145/69
--- NOTE | 2020-08-10 11:51 | DISCH ---
DISCHARGE ORDERS DISCHARGE DATE: Aug 10, 2020 FINAL DIAGNOSIS syncope acute on chronic kidney injury type II DM ACUTE BLOOD LOSS ANEMOA MRSA infection RLE CONDITION AT DISCHARGE: Stable Code Status: Full SNF STAY <30 DAYS: Yes POST DISCHARGE ORDERS: ACTIVITY ORDERS: Activity as tolerated, Bedrest today WEIGHT BEARING STATUS: Non weight bearing DIET AFTER DISCHARGE: ADA DISCHARGE MEDICATIONS: Home Meds Reported Medications Silver Sulfadiazine (SILVADENE) 20 Gm Cream..g., 1 ERIKA TP DAILY for RLE ex-fix wounds for 7 Days, #50 GM 0 Refills apply to affected area(s) 08/08/20 Sulfamethoxazole/Trimethoprim (BACTRIM 400-80 MG TABLET) 1 Each Tablet, 2 TAB PO BID for MRSA in RLE wound for 7 Days, #28 TAB 0 Refills 08/08/20 Metoclopramide Hcl (REGLAN) 10 Mg Tablet, 1 TAB PO QID PRN for NAUSEA/VOMITING for 30 Days, #120 TAB 0 Refills before food and bedtime 08/08/20 Dronabinol (DRONABINOL) 10 Mg Capsule, 0.5 CAP PO BID for APPETITE STIMULANT MDD 2 Capsule(s) for 30 Days, #30 CAP 0 Refills 08/08/20 Guaifenesin (MUCINEX) 600 Mg Tablet.er, 1 TAB PO BID PRN for CONGESTION for 10 Days, #20 TAB 0 Refills 08/08/20 Citalopram Hydrobromide (CELEXA) 10 Mg Tablet, 10 MG PO DAILY for DEPRESSION, TAB 08/08/20 Insulin Glargine,Hum.rec.anlog (LANTUS SOLOSTAR) 100 Unit/1 Ml Insuln.pen, 8 UNIT SQ QHS for DM, SYR 08/08/20 Ondansetron Hcl (ONDANSETRON HCL) 4 Mg Tablet, 4 MG PO PRN Q6HRS PRN for NAUSEA/VOMITING, TAB 06/24/20 Insulin Aspart (NOVOLOG FLEXPEN) 100 Unit/1 Ml Insuln.pen, 5 UNIT SQ TIDWMEALS for diabetes, SYR 06/24/20 Lovastatin (LOVASTATIN) 20 Mg Tablet, 20 MG PO DAILY for high cholesterol, TAB 06/24/20 Insulin Glargine,Hum.rec.anlog (LANTUS SOLOSTAR) 100 Unit/1 Ml Insuln.pen, 10 UNIT SQ DAILY for blood sugar control, #15 ML 3 Refills 06/24/20 Hydrocodone Bit/Acetaminophen (NORCO 5-325 TABLET) 1 Each Tablet, 1 TAB PO PRN Q6HRS PRN for PAIN, TAB 0 Refills 06/24/20 Valsartan (DIOVAN) 40 Mg Tablet, 40 MG PO DAILY for high blood pressure, TAB 06/24/20 Lorazepam (ATIVAN) 1 Mg Tablet, 1 MG PO Q6HRS for anxiety, TAB 06/24/20 Amlodipine Besylate (AMLODIPINE BESYLATE) 2.5 Mg Tablet, 2.5 MG PO DAILY for high blood pressure, TAB 06/24/20 Discontinued Reported Medications Insulin Aspart (NOVOLOG FLEXPEN) 100 Unit/1 Ml Insuln.pen, 0-19 UNIT SQ TIDWMEAL S for sliding scale insulin, SYR 06/24/20 Linagliptin (TRADJENTA) 5 Mg Tablet, 5 MG PO DAILY for blood sugar control, TAB 06/24/20 Lactobacillus Acidophilus (PROBIOTIC) 1 Each Capsule, 1 EACH PO BID for gut health, CAP 06/24/20 Ferrous Sulfate (IRON) 325 Mg Tablet, 325 MG PO BIDWMEALS for anemia, TAB 06/24/20 Glucagon,Human Recombinant (GLUCAGON EMERGENCY KIT) 1 Mg Kit, 1 MG IM ONCE for low blood sugar, #1 KIT 1 Refill 06/24/20 Enoxaparin Sodium (LOVENOX) 40 Mg/0.4 Ml Disp.syrin, 40 MG SQ DAILY for tib/fib fracture, DIS.SYR 06/24/20 Calcium Carbonate (CALCIUM CARBONATE) 500 Mg Tablet, 2 TAB PO PRN Q8HRS PRN for heartburn/indigestion for 30 Days, TAB 0 Refills 06/24/20 Menthol (BIOFREEZE) 118 Ml Gel..ml., 1 ERIKA TP PRN Q4HRS PRN for PAIN for 10 Days, #118 ML 0 Refills apply to neck and shoulders as needed for pain 06/24/20 LOBO CHRISTENSEN MD Aug 10, 2020 11:51
--- NOTE | 2020-08-10 12:18 | DS ---
DATE OF DISCHARGE: 08/10/2020 HOSPITAL COURSE: The patient was admitted with a syncopal episode, probably multifactorial. The patient is known to have type 2 diabetes mellitus, possible autonomic neuropathy, jwdgd-ma-zoydwzr kidney injury that has improved. She has anemia for which she received 2 units of packed RBCs. She has completed a 7-day course for Bactrim for methicillin-resistant staphylococcal infection of her right lower extremity. PHYSICAL EXAMINATION: GENERAL: When I saw her today, she looked well and was clearly in no apparent distress, pale. No jaundice, cyanosis or thyromegaly. No jugular venous distension. No limb edema. VITAL SIGNS: Her heart rate was 71, blood pressure was 145/69, temperature was 98.5, respiratory rate was 18 and oxygen saturation was 97% on room air. HEAD, EYES, EARS, NOSE AND THROAT: Showed normocephalic, atraumatic. NECK: Supple. HEART: Normal first and second heart sounds. No gallop or murmur. CHEST: Clear to auscultation. No crepitation or rhonchi. ABDOMEN: Slightly distended, soft, nontender. No guarding or rigidity. No organomegaly. All hernial orifice intact. Bowel sounds normal. NEUROLOGIC: She has marked visual impairment, but all other cranial nerves are intact. She moves upper extremities to much good extent than lower extremities. She has traumatic proximal tibia and fibular fracture, status post closed reduction with external fixators. She is nonweightbearing. Her intake and output are incompletely recorded. LABORATORY DATA: This morning shows a blood sugar is well controlled. Her serum sodium was 131, potassium 4.4, chloride 98, bicarbonate 26, anion gap of 7, BUN 16, creatinine 1.2, estimated GFR was 44 mL per minute. Her glucose 136, calcium was 9. Total bilirubin, AST, ALT, alkaline phosphatase were normal. Total protein 6.6, albumin 2.7. Her white cell count was 3900, hemoglobin 11, hematocrit 33, MCV 88, and platelet count of 176,000. DISCHARGE MEDICATIONS: The patient was discharged back to [facility] to continue polyethylene glycol 17 grams daily, Colace 100 mg twice a day, Lantus insulin 15 units subcutaneously daily, magnesium citrate 1 bottle p.o. every 72 hours, Lantus insulin 10 units at bedtime, atorvastatin calcium 5 mg at bedtime, dronabinol for Marinol 5 mg twice a day, Silver sulfadiazine 1 application topically daily, citalopram hydrobromide 10 mg daily, amlodipine 2.5 mg once a day. She is on Humalog insulin 5 units before meals, ondansetron 4 mg every 6 hours, metoclopramide 5 mg before meals and bedtime, Mucinex 600 mg twice a day. FINAL DISCHARGE DIAGNOSES: 1. Syncopal episode, probably multifactorial. 2. The patient is known to have type 2 diabetes mellitus for extended periods of time with possible autonomic neuropathy. 3. She has lehdc-bx-kgmwuop kidney injury, likely dehydration is improving. 4. Anemia, status post 2 units of packed RBCs. 5. Hypertension is well controlled. 6. Hyperlipidemia. 7. She did grow methicillin-resistant Staphylococcus aureus from her right lower extremity around the external fixator for which she completed a 7-day course of Bactrim. Her urine culture has grown less than 10,000 colony forming units of Enterococcus faecium. LOBO CHRISTENSEN MD DR: JUS/nolan JOB#: [id number] / [id number]
== END 2020-08-10 13:20 | DRG 637 ==
LOC: ER 18:29 → 1 SOUTH 21:10
PROVIDERS: ADMIT Internal Medicine; ATTEND Internal Medicine
PROC: 30233N1 Transfusion of Nonautologous Red Blood Cells into Peripheral Vein, Percutaneous Approach (ICD-10-PCS; principal; 2020-08-08)
DX: E11.65 Type 2 diabetes mellitus with hyperglycemia (principal); N17.0 Acute kidney failure with tubular necrosis; E43 Unspecified severe protein-calorie malnutrition; E87.1 Hypo-osmolality and hyponatremia; N39.0 Urinary tract infection, site not specified; E11.43 Type 2 diabetes mellitus with diabetic autonomic (poly)neuropathy; B95.62 Methicillin resistant Staphylococcus aureus infection as the cause of diseases classified elsewhere; D64.9 Anemia, unspecified; D72.819 Decreased white blood cell count, unspecified; E11.22 Type 2 diabetes mellitus with diabetic chronic kidney disease; E78.5 Hyperlipidemia, unspecified; E86.0 Dehydration; E87.5 Hyperkalemia; B95.2 Enterococcus as the cause of diseases classified elsewhere; I12.9 Hypertensive chronic kidney disease with stage 1 through stage 4 chronic kidney disease, or unspecified chronic kidney disease; I25.10 Atherosclerotic heart disease of native coronary artery without angina pectoris; K59.00 Constipation, unspecified; M81.0 Age-related osteoporosis without current pathological fracture; N18.9 Chronic kidney disease, unspecified; Z96.641 Presence of right artificial hip joint; M19.90 Unspecified osteoarthritis, unspecified site; Z91.040 Latex allergy status; Z91.041 Radiographic dye allergy status; Z68.26 Body mass index [BMI] 26.0-26.9, adult; R55 Syncope and collapse
CPT/HCPCS: 36415; 70450; 71045; 71250; 74150; 80053; 81001; 82010; 82274; 82947; 83605; 84484; 85014; 85018; 85025; 85027; 85379; 86850; 86900; 86901; 86920; 87071; 87075; 87077; 87086; 87186; 93005; 93971; 96361; 96365; 96375; C9113; J0696; J1815; J2405; P9016; P9612; Q0167; 97110; 97530; 97535; 99285-25; J7030

== ENCOUNTER 2021-01-18 16:57 | Inpatient (IN) | payer MEDICARE, OTHER ==
[~2021-01-18] VITALS: Ht 165.1 cm; Wt 76.2 kg
[~2021-01-18 16:57] MED LIST changes: +CITA10TA8 PO; +DRON10CA5 PO; +GUAI600T47 PO; +METO10TA81 PO; +SILV20CR14 TP; +SULF1TAB23 PO
--- NOTE | 2021-01-18 17:42 | PHYS DOC ---
Past History Past Medical History: Anemia, Diabetes, High Cholesterol, Heart Disease, Hypertension, Pneumonia, Other Additional Past Medical Histor: syncope (REX DUKE MD) Past Surgical History: , Other Additional Past Surgical Histo: right ankle surgery (REX DUKE MD) Smoking: Non-smoker Alcohol Use: None Drug Use: None (REX DUKE MD) General Adult EDM: Chief Complaint: BLOOD SUGAR PROBLEM HPI: HPI: Patient is a 70-year-old female brought in by EMS for vomiting for the past 3 days. Patient states she had 1 day of diarrhea. Patient states she is also having sternal chest pain. Has a history of diabetes, states her glucose has been running high since yesterday. Denies any fevers. Had both of her Covid vaccines. Patient states that she has a sternal chest pain at the same site where she had fallen about 2 weeks ago and hit a piece of exercise equipment. She was never checked out for that injury. (REX DUKE MD) Review of Systems: Review of Systems: All other systems within normal limits except for as noted in the HPI (REX DUKE MD) Allergies: Allergies: Allergies Coded Allergies Type Severity Reaction Last Updated Verified latex Allergy Mild skin irritation 08/07/20 Yes (REX DUKE MD) Physical Exam: PE: Constitutional: Well developed, well nourished, no acute distress, non-toxic appearance. [] HENT: Normocephalic, atraumatic, bilateral external ears normal, nose normal. [] Eyes: PERRLA, conjunctiva normal, no discharge. [] Neck: No rigidity, supple, no stridor. [] Cardiovascular: Regular rate and rhythm, brisk cap refill [] Lungs & Thorax: Non labored symmetric respirations, no tachypnea or respiratory distress. Low sternum tenderness to palpation [] Abdomen: Soft, nondistended. Skin: Warm, dry, no erythema, no rash. [] Back: Unremarkable Extremities: No deformities, range of motion grossly intact, no lower extremity edema [] Neurologic: Alert and oriented X 3, no focal deficits noted. [] Psychologic: Affect normal, judgement normal, mood normal. [] (REX DUKE MD) EKG: EKG: [] (REX DUKE MD) Radiology/Procedures: Radiology/Procedures: [] (REX DUKE MD) Heart Score: C/O Chest Pain: N/A Risk Factors: Risk Factors: DM, Current or recent (<one month) smoker, HTN, HLP, family history of CAD, obesity. Risk Scores: Score 0 - 3: 2.5% MACE over next 6 weeks - Discharge Home Score 4 - 6: 20.3% MACE over next 6 weeks - Admit for Clinical Observation Score 7 - 10: 72.7% MACE over next 6 weeks - Early Invasive Strategies (REX DUKE MD) Course & Med Decision Making: Course & Med Decision Making Care transition at shift change, pending imaging and labs. (REX DUKE MD) Course & Med Decision Making Patient care handed off to me at checkout pending labs. Patient appears ill and remains nauseous. Vital signs stable with a heart rate of 85, blood pressure 161/69 breathing 20 times a minute on room air saturating 100%. Blood sugar greater than 700. EKG with a rate of 85, QRS 86, QTc 431, no STEMI. Elevated troponin however at greater than 0.1. Normocytic anemia. Pseudohyponatremia with normal potassium. Gap of 16 with elevated BUN and creatinine. Elevated CK. Lactate of 2. Given patient's history, physical and laboratory work-up DKA/HHS with endorgan damage given elevated creatinine and troponin. Patient placed on the monitor with 2 peripheral IVs placed and IV fluid resuscitation began. Given pain and nausea medicine. Given aspirin. Started on insulin drip. Blood cultures obtained. Started on antibiotics. Urine pending given patient's hypovolemic status. Discussed all findings with patient and and recommended admission to the ICU at [facility] for continued evaluation and treatment of the above. Discussed patient with Dr. Nobles who agreed. (BLAYNE CAMPBELL MD) Dragon Disclaimer: Dragon Disclaimer: This electronic medical record was generated, in whole or in part, using a voice recognition dictation system. (REX DUKE MD) Departure Departure: Impression: Primary Impression: HHS (hypothenar hammer syndrome) Additional Impressions: Elevated troponin Elevated serum creatinine Elevated CK Dehydration Nausea & vomiting Disposition: ADMITTED INPATIENT Admitting Physician: Jarod Nobles (BLAYNE CAMPBELL MD) Condition: STABLE Referrals: WALT NOLASCO (PCP) REX DUKE MD Jan 18, 2021 17:42 BLAYNE CAMPBELL MD Jan 18, 2021 19:04
[2021-01-18 18:05] LABS: BASO % 0 % (0-3); EOS % 0 % (0-3); HEMATOCRIT 28.5 % (36.0-47.0); HEMOGLOBIN 9.2 g/dL (12.0-15.5); LYMPH # 0.3 x10^3/uL (1.0-4.8); LYMPH % 3 % (24-48); MEAN CORPUSCULAR HEMOGLOBIN 29 pg (25-35); MEAN CORPUSCULAR HGB CONC 32 g/dL (31-37); MEAN CORPUSCULAR VOLUME 88 fL (79-100); MONO # 0.5 x10^3/uL (0.0-1.1); MONO % 5 % (0-9); NEUT # 8.7 x10^3uL (1.8-7.7); NEUT % 92 % (31-73); PLATELET COUNT 141 x10^3/uL (140-400); RED BLOOD COUNT 3.23 x10^6/uL (3.50-5.40); RED CELL DISTRIBUTION WIDTH 15.1 % (11.5-14.5); WHITE BLOOD COUNT 9.4 x10^3/uL (4.0-11.0)
[2021-01-18 18:19] LABS: ALBUMIN 3.2 g/dL (3.4-5.0); ALBUMIN/GLOBULIN RATIO 0.8 (1.0-1.7); CALCIUM 8.7 mg/dL (8.5-10.1); CREATININE 2.6 mg/dL (0.6-1.0); GFR 18.2; POTASSIUM 4.4 mmol/L (3.5-5.1); TOTAL BILIRUBIN 0.6 mg/dL (0.2-1.0); TOTAL PROTEIN 7.3 g/dL (6.4-8.2)
[2021-01-18] MEDS ORDERED: IV RINGERS SOLUTION,LACTATED 1,000 ML IV ONE ×2 (18:30→20:00)
[2021-01-18] MEDS ORDERED: ASPIRIN CHEWABLE 81 MG TABLET. PO ONE (18:45)
[2021-01-18] MEDS ORDERED: INSULIN REGULAR VIAL 100 UNIT in IV NORMAL SALINE 100ML 100 ML IV PRN (19:00)
[2021-01-18] MEDS ORDERED: METOCLOPRAMIDE HCL 10 MG/2 ML VIAL. IVP ONE (19:00)
[2021-01-18] MEDS ORDERED: cefTRIAXone SODIUM 1 GM VIAL ONE (19:12)
[2021-01-18] MEDS ORDERED: IV NORMAL SALINE 50ML 50 ML ONE (19:12)
[2021-01-18] MEDS ORDERED: IV NORMAL SALINE 100ML 100 ML ONE (19:17)
--- NOTE | 2021-01-18 19:32 | RAD ---
AP portable chest radiograph 01/18/2021 Clinical History: Chest pain nausea and vomiting.. An AP erect portable digital radiograph of the chest was obtained. Comparison study is dated 08/07/2020. The cardiac silhouette is mildly enlarged. The thoracic aorta is tortuous. Atherosclerotic calcificat ion thoracic aorta is seen. No acute pulmonary infiltrate is noted. No pneumothorax or pleural effusi on is seen. There is diffuse osteopenia the visualized bony structures. Degenerative changes are seen involving the thoracic spine and both shoulders. Impression: No acute abnormality is seen. Electronically signed by: Homero Jordan MD (01/18/2021 7:30 PM) [id number]
[2021-01-18] MEDS ORDERED: PANTOPRAZOLE IV 40 MG VIAL. IVP ONE (20:15)
[2021-01-18 21:15] VITALS: BP 139/65
--- NOTE | 2021-01-18 21:15 | NUR ---
Pt admitted from ER to ICU bed 2 via [facility], accompanied by EMS and nursing staff. Pt transferred over from [facility] to bed x 3 assist. Pt here for c/o blood sugar over 700, N/V and Abd pain. Admission assessment completed. Pt A&Ox4 forgetful at times but very pleasant and cooperative. Health history reviewed with pt. Pt's daughter Ana Laura called for home medication list. Pt on insulin gtt, using GlucoStabilizer for titration. Parks catheter placed using aseptic technique per order, pt tolerated well, 400cc of clear yellow urine noted. Pt lives at home with . Pt UTD on Covid vaccine. POC reviewed with pt, understanding verbalized. Dr Nobles called and notified of admission, orders received. Call light within reach.
[2021-01-18 22:05] VITALS: BP 118/58
[2021-01-18] MEDS ORDERED: CALC-558 PO (22:38)
[2021-01-18] MEDS ORDERED: INSU100I41 SQ (22:38)
[2021-01-18 22:45] VITALS: BP 104/46
[2021-01-18 23:24] LABS: BILIRUBIN,URINE NEG (NEG); CLARITY,URINE HAZY; COLOR,URINE STRAW; GLUCOSE,URINE >=1000 mg/dL (NEG)
[2021-01-18 23:25] LABS: BACTERIA,URINE MOD /HPF (0-FEW); NITRITE,URINE NEG (NEG); SQUAMOUS EPITHELIAL CELL,UR FEW /LPF; UROBILINOGEN,URINE 0.2 mg/dL (0.2 mg/dL)
[2021-01-18 23:55] VITALS: BP 115/51
[2021-01-19] VITALS (10 sets, daily range): BP systolic 103–176; BP diastolic 44–75
[2021-01-19] MEDS: ONDANSETRON PF 4 MG/2 ML VIAL. IVP PRN ×4 (00:26→22:38)
[2021-01-19] MEDS: IV NORMAL SALINE 1,000ML 1,000 ML IV SCH ×2 (00:27→15:04)
[2021-01-19 06:02] LABS: BASO % 0 % (0-3); EOS % 0 % (0-3); HEMATOCRIT 28.5 % (36.0-47.0); HEMOGLOBIN 9.4 g/dL (12.0-15.5); LYMPH # 0.5 x10^3/uL (1.0-4.8); LYMPH % 5 % (24-48); MEAN CORPUSCULAR HEMOGLOBIN 28 pg (25-35); MEAN CORPUSCULAR HGB CONC 33 g/dL (31-37); MEAN CORPUSCULAR VOLUME 86 fL (79-100); MONO # 0.8 x10^3/uL (0.0-1.1); MONO % 9 % (0-9); NEUT # 8.1 x10^3uL (1.8-7.7); NEUT % 86 % (31-73); PLATELET COUNT 146 x10^3/uL (140-400); RED BLOOD COUNT 3.33 x10^6/uL (3.50-5.40); RED CELL DISTRIBUTION WIDTH 14.5 % (11.5-14.5); WHITE BLOOD COUNT 9.4 x10^3/uL (4.0-11.0)
[2021-01-19 06:03] LABS: CALCIUM 8.9 mg/dL (8.5-10.1); GFR 24.6; POTASSIUM 3.5 mmol/L (3.5-5.1)
[2021-01-19] MEDS ORDERED: DEXTROSE 50% 25 GM / 50ML DISP.SYRIN. IV PRN (06:30)
--- NOTE | 2021-01-19 06:30 | NUR ---
Pt with improved labs and glucose levels (170, 119, 114, 120 on last 4 checks) while on Insulin gtt per GlucoStabilzer over night. Dr Nobles called and orders received to be taken off Insulin gtt and changed to SSI q 4 hrs. Pt Downgraded from ICU to Tele status and moved over to 1south room 109 at shift change. Pt with c/o nausea and Abd./Epigastric pain off and on during night when awake, PRN Zofran and Fentanyl given per orders.
[2021-01-19] MEDS: PANTOPRAZOLE IV 40 MG VIAL. IVP SCH (09:07)
--- NOTE | 2021-01-19 09:28 | HP ---
ADMIT DATE: 01/18/2021 ATTENDING PHYSICIAN: Dr. Nobles. CHIEF COMPLAINT: High blood sugar. HISTORY OF PRESENT ILLNESS: The patient is a 70-year-old female with poorly controlled diabetes. She has had nausea, epigastric pain. 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 She may have either a self-limiting gastroenteritis or aggravations of diabetic gastroparesis. Her , who is a retired nurse said she was not eating anything and failed to give her insulin. Blood sugar was 712 when she came to the ED, her anion gap was 14. She was admitted then with hyperosmolar nonketotic coma. She was started on insulin drip. PAST MEDICAL HISTORY: Significant for diabetes type 2 for the last 13 years with poor control. She has associated diabetic retinopathy, diabetic heart disease, diabetic nephropathy with chronic kidney disease, essential hypertension and anemia of chronic disease. CURRENT MEDICATIONS: Reviewed. She was scheduled to take amlodipine, calcium, Celexa, NPH insulin 15 units t.i.d., lovastatin, metoclopramide, and ondansetron. ALLERGIES: SHE HAS ALLERGIES TO LATEX. SOCIAL HISTORY: She is a nonsmoker, nondrinker. FAMILY HISTORY: Mom of complications following hip fracture. She has had a stroke. She at age 69. Father of emphysema at age 68. She is disabled. REVIEW OF SYSTEMS: Significant for the nausea symptoms. She has been on metoclopramide. She has hyperlipidemia. She is blind. She is debilitated. All other systems reviewed and turned to be negative. PHYSICAL EXAMINATION: GENERAL: When I saw her, this is a pleasant female who is clinically blind. VITAL SIGNS: Initial vital signs showed a blood pressure of 143/55, pulse 73 and regular. She was afebrile. HEENT: Head is without trauma. Pupils are reactive. Sclerae nonicteric. Oropharynx is clear. NECK: Supple, no bruits identified. LUNGS: Shallow respirations. CARDIOVASCULAR: Showed regular heart tones. No murmurs or rubs. ABDOMEN: Minimal guarding at epigastric area. No rebound tenderness. Bowel sounds are hypoactive. EXTREMITIES: Show no cyanosis or edema. NEUROLOGIC FINDINGS: The patient is blind. She is nonambulatory. PERTINENT LABORATORY AND X-RAY STUDIES: Admission hemoglobin is 9.4 g/dL, admission blood sugar was over 700. Creatinine is 2.0 mg/dL, potassium is 3.5 mEq. A CPK ordered in the ED was elevated at 0.192. ASSESSMENT: 1. A 70-year-old female with hyperosmolar nonketotic coma. 2. Poorly controlled diabetes mellitus. 3. Elevation of troponin due to stress demand ischemia. 4. Diabetic gastroparesis. She is already on Reglan. 5. Underlying depression. 6. Essential hypertension. 7. Hyperlipidemia. PLAN: 1. Admit to the ICU. 2. Glucose stabilizer protocol with insulin drip. 3. N.p.o. for now. We will advance diet as tolerated. 4. I will order serial enzymes. She is not symptomatic at this time. BRENT DR: Franki TID: [id number] CC: Ailin Cespedes
[2021-01-19] MEDS: INSULIN LISPRO 300 UNITS/3 ML VIAL. SQ SCH ×5 (09:30→23:34)
[2021-01-19] MEDS: LACTOBACILLUS RHAMNOSUS GG 1 CAPSULE. PO SCH (20:32)
[2021-01-20] MEDS: IV NORMAL SALINE 1,000ML 1,000 ML IV SCH ×2 (01:45→15:58)
[2021-01-20] MEDS: INSULIN LISPRO 300 UNITS/3 ML VIAL. SQ SCH ×2 (03:25→07:55)
[2021-01-20 03:52] VITALS: BP 166/65
[2021-01-20] MEDS: ONDANSETRON PF 4 MG/2 ML VIAL. IVP PRN (05:53)
[2021-01-20 05:55] VITALS: BP 152/65
[2021-01-20 06:43] LABS: BASO % 0 % (0-3); EOS % 1 % (0-3); HEMATOCRIT 29.9 % (36.0-47.0); HEMOGLOBIN 9.8 g/dL (12.0-15.5); LYMPH # 0.4 x10^3/uL (1.0-4.8); LYMPH % 7 % (24-48); MEAN CORPUSCULAR HEMOGLOBIN 28 pg (25-35); MEAN CORPUSCULAR HGB CONC 33 g/dL (31-37); MEAN CORPUSCULAR VOLUME 86 fL (79-100); MONO # 0.5 x10^3/uL (0.0-1.1); MONO % 7 % (0-9); NEUT # 5.3 x10^3uL (1.8-7.7); NEUT % 85 % (31-73); PLATELET COUNT 151 x10^3/uL (140-400); RED BLOOD COUNT 3.48 x10^6/uL (3.50-5.40); RED CELL DISTRIBUTION WIDTH 15.1 % (11.5-14.5); WHITE BLOOD COUNT 6.2 x10^3/uL (4.0-11.0)
[2021-01-20 06:47] LABS: CALCIUM 8.5 mg/dL (8.5-10.1); CREATININE 1.2 mg/dL (0.6-1.0); GFR 44.4
[2021-01-20] MEDS: LACTOBACILLUS RHAMNOSUS GG 1 CAPSULE. PO SCH ×2 (07:51→20:48)
[2021-01-20] MEDS: PANTOPRAZOLE IV 40 MG VIAL. IVP SCH (07:52)
[2021-01-20] MEDS ORDERED: METOCLOPRAMIDE HCL 10 MG/2 ML VIAL. IVP PRN (10:00)
[2021-01-20 11:08] VITALS: BP 172/71
--- NOTE | 2021-01-20 11:14 | EKG ---
[address] [address] Test Date: 2021-01-18 Test Time: 20:45:03 Pat Name: EARLENE MONZON Department: Room: [facility] 1 Gender: F Crowning Inspector: : 1950 Requested By: BLAYNE CAMPBELL Order Number: [id number] Reading MD: Measurements Intervals Transfer Rate: 77 P: -90 CT: 212 QRS: 19 QRSD: 84 T: 92 QT: 384 QTc: 436 Interpretive Statements SINUS RHYTHM QRS(T) CONTOUR ABNORMALITY CONSIDER ANTEROLATERAL MYOCARDIAL DAMAGE POSSIBLY ABNORMAL ECG RI6.02 No previous ECG available for comparison
--- NOTE | 2021-01-20 11:15 | EKG ---
[address] [address] Test Date: 2021-01-18 Test Time: 17:11:35 Pat Name: EARLENE MONZON Department: Room: [facility] 1 Gender: F Transcript Evaluator: TIFF : 1950 Requested By: REX DUKE Order Number: [id number] Reading MD: Measurements Intervals Driver Rate: 85 P: 90 NC: 214 QRS: 10 QRSD: 86 T: 69 QT: 362 QTc: 431 Interpretive Statements SINUS RHYTHM PROLONGED NC INTERVAL T ABNORMALITY IN ANTERIOR LEADS HIGH LATERAL LEADS ABNORMAL ECG RI6.02 No previous ECG available for comparison
[2021-01-20] MEDS: INSULIN NPH/REG HUM 70/30 300 UNITS/3 ML VIAL. SQ SCH ×2 (12:43→17:31)
[2021-01-20 15:54] VITALS: BP 175/75
[2021-01-20] MEDS: METOCLOPRAMIDE HCL 10 MG/2 ML VIAL. IVP SCH ×2 (17:00→20:44)
--- NOTE | 2021-01-20 18:28 | NUR ---
NURSING NOTE PT EXPERIENCED NAUSEA AND VOMITING FOR MOST OF THE DAY. FENTANYL GIVEN ALONG WITH REGLAN FOR N&V. PT RATED PAIN AT A 6/10 COMPARED TO A 9/10 BEFORE THE FENTANYL. PT TO CONTINUE ROCEPHIN. REGLAN SCHEDULED. BLOOD SUGARS CONSISTENT AROUND THE [address] TODAY. PT SEEMED MOST COMFORTABLE ON HER RIGHT SIDE TODAY.
[2021-01-20 19:11] VITALS: BP 160/73
[2021-01-20] MEDS: INSULIN GLARGINE SYRINGE. SQ SCH (20:48)
[2021-01-20 22:40] VITALS: BP 139/70
--- NOTE | 2021-01-20 22:51 | PN ---
DATE: 01/20/2021 ATTENDING PHYSICIAN: Dr. Nobles. SUBJECTIVE: Still nauseated. She is having dry heaves. She states 2 months ago she was at the detention, they had her on Reglan; since she has been home, she has not been taking it. OBJECTIVE FINDINGS: VITAL SIGNS: Blood pressure this morning is 152/65. She is afebrile. Oxygen saturation 97% on room air, pulse is 80 and regular. HEENT: Head is without trauma. Pupils are reactive. Sclerae nonicteric. She is blind bilaterally. CARDIOVASCULAR: Showed regular heart tones. LUNGS: Actually clear. ABDOMEN: Soft. Minimal guarding, no rebound tenderness. EXTREMITIES: Without edema. NEUROLOGIC: Focally intact. The patient is blind. LABORATORY DATA: Her sodium is 138, potassium 3.0 mEq, creatinine 1.2 mg percent. Nonfasting blood sugar this morning was 204 mg/dL. ASSESSMENT: 1. A 70-year-old female with hyperosmolar nonketotic coma. 2. Poorly controlled diabetes. 3. Diabetic retinopathy. PLAN: 1. Q.i.d. regimen. 2. IV Reglan. 3. Continue IV fluids. TIFFANIE DR: Franki TID: [id number] CC: Ailin Cespedes M.D.
[2021-01-21] MEDS: ONDANSETRON PF 4 MG/2 ML VIAL. IVP PRN ×3 (01:54→13:41)
[2021-01-21 05:35] VITALS: BP 187/78
[2021-01-21] MEDS: METOCLOPRAMIDE HCL 10 MG/2 ML VIAL. IVP SCH ×3 (05:39→17:50)
[2021-01-21] MEDS: IV NORMAL SALINE 1,000ML 1,000 ML IV SCH (05:40)
--- NOTE | 2021-01-21 06:02 | NUR ---
Pt c/o N/V and upper abdominal pain throughout shift. Minimal improvement with scheduled Reglan, PRN Zofran, and PRN fentanyl. Pt did sleep off and on through noc. Pt reports vomiting periodically, but only approx. 50cc clear sputum visualized in emesis basin. More awake this morning and able to tolerate several sips of Gatorade.
[2021-01-21 06:05] LABS: BASO % 0 % (0-3); EOS # 0.1 x10^3/uL (0.0-0.7); EOS % 2 % (0-3); HEMATOCRIT 30.8 % (36.0-47.0); HEMOGLOBIN 10.2 g/dL (12.0-15.5); LYMPH # 0.6 x10^3/uL (1.0-4.8); LYMPH % 16 % (24-48); MEAN CORPUSCULAR HEMOGLOBIN 28 pg (25-35); MEAN CORPUSCULAR HGB CONC 33 g/dL (31-37); MEAN CORPUSCULAR VOLUME 85 fL (79-100); MONO # 0.5 x10^3/uL (0.0-1.1); MONO % 12 % (0-9); NEUT # 2.7 x10^3uL (1.8-7.7); NEUT % 69 % (31-73); PLATELET COUNT 144 x10^3/uL (140-400); RED BLOOD COUNT 3.62 x10^6/uL (3.50-5.40); RED CELL DISTRIBUTION WIDTH 14.5 % (11.5-14.5); WHITE BLOOD COUNT 3.9 x10^3/uL (4.0-11.0)
[2021-01-21 06:14] LABS: CALCIUM 8.3 mg/dL (8.5-10.1); CREATININE 0.9 mg/dL (0.6-1.0); GFR 61.9
[2021-01-21 06:18] LABS: POTASSIUM 2.8 mmol/L (3.5-5.1)
[2021-01-21] MEDS ORDERED: MAGNESIUM SULFATE 1GM 100 ML IV ONE (07:15)
[2021-01-21] MEDS: PANTOPRAZOLE IV 40 MG VIAL. IVP SCH (07:37)
[2021-01-21] MEDS: INSULIN NPH/REG HUM 70/30 300 UNITS/3 ML VIAL. SQ SCH ×3 (08:00→17:37)
[2021-01-21] MEDS: POTASSIUM CHLORIDE 20 MEQ TABLET.ER. PO SCH ×2 (08:21→17:27)
[2021-01-21] MEDS: LACTOBACILLUS RHAMNOSUS GG 1 CAPSULE. PO SCH ×2 (08:21→20:37)
[2021-01-21 11:56] VITALS: BP 181/79
[2021-01-21 15:36] VITALS: BP 162/74
--- NOTE | 2021-01-21 18:24 | NUR ---
Pt condition has not changed much from yesterday. Tried to turn pt as much as tolerated. Pt trying to drink sips of water and gatorade. Pt fluids dc'd. Pt still on reglan which does not seem to be helping much. Pt also given fentynl and zofran for pain, nausea, and vomiting. Pt calm and cooperative.
[2021-01-21 19:30] VITALS: BP 153/75
[2021-01-21] MEDS: INSULIN GLARGINE SYRINGE. SQ SCH (20:52)
--- NOTE | 2021-01-22 05:31 | PN ---
DATE: 01/21/2021 ATTENDING PHYSICIAN: Dr. Nobles. SUBJECTIVE: Still nauseated, having dry heaves, trying to keep some clear liquids down. OBJECTIVE FINDINGS: VITAL SIGNS: Blood pressure this morning is 187/74, pulse 76 and regular, temperature 98.5 degrees Fahrenheit, oxygen saturation 96% on room air. HEENT: Head is without trauma. Pupils are reactive. Sclerae nonicteric. Oropharynx clear. NECK: Supple, no bruits. LUNGS: Clear. CARDIOVASCULAR: Regular heart tones. No gallop. ABDOMEN: Soft. EXTREMITIES: Without edema. NEUROLOGIC: Focally intact. The patient is blind. PERTINENT LABORATORY DATA: Her blood sugars have been 147, 132, 118, 111 respectively. Potassium is 2.8 mEq/L, creatinine 0.9 mg/dL. ASSESSMENT: 1. Hyperosmotic nonketotic coma, improved. 2. Poorly controlled insulin-dependent diabetes. 3. Hypokalemia. 4. Diabetic gastroparesis. 5. Diabetic retinopathy resulting in blindness. PLAN: 1. Continue symptomatic treatment. 2. Increase Reglan to q.6 hours. 3. Q.i.d. regimen of scheduled Lantus and regular insulin. 4. Pain control. 5. Potassium and magnesium replacement. 6. Followup chemistries. CORY/LIAM/BEATRIZ DR: CORY/nolan TID: [id number] CC: Dr. Ailin Cespedes
[2021-01-22 05:50] VITALS: BP 143/68
[2021-01-22] MEDS: METOCLOPRAMIDE HCL 10 MG/2 ML VIAL. IVP SCH ×3 (06:06→11:58)
[2021-01-22] MEDS: INSULIN NPH/REG HUM 70/30 300 UNITS/3 ML VIAL. SQ SCH ×2 (08:00→11:59)
[2021-01-22] MEDS: POTASSIUM CHLORIDE 20 MEQ TABLET.ER. PO SCH (08:27)
[2021-01-22] MEDS: PANTOPRAZOLE IV 40 MG VIAL. IVP SCH (08:27)
[2021-01-22] MEDS: LACTOBACILLUS RHAMNOSUS GG 1 CAPSULE. PO SCH (08:27)
[2021-01-22 08:38] LABS: BASO % 0 % (0-3); EOS # 0.2 x10^3/uL (0.0-0.7); EOS % 4 % (0-3); HEMATOCRIT 31.1 % (36.0-47.0); HEMOGLOBIN 10.2 g/dL (12.0-15.5); LYMPH # 0.8 x10^3/uL (1.0-4.8); LYMPH % 18 % (24-48); MEAN CORPUSCULAR HEMOGLOBIN 28 pg (25-35); MEAN CORPUSCULAR HGB CONC 33 g/dL (31-37); MEAN CORPUSCULAR VOLUME 85 fL (79-100); MONO # 0.5 x10^3/uL (0.0-1.1); MONO % 11 % (0-9); NEUT # 2.9 x10^3uL (1.8-7.7); NEUT % 68 % (31-73); PLATELET COUNT 159 x10^3/uL (140-400); RED BLOOD COUNT 3.66 x10^6/uL (3.50-5.40); WHITE BLOOD COUNT 4.3 x10^3/uL (4.0-11.0)
[2021-01-22 08:41] LABS: ALBUMIN 2.7 g/dL (3.4-5.0); ALBUMIN/GLOBULIN RATIO 0.7 (1.0-1.7); CALCIUM 8.5 mg/dL (8.5-10.1); CREATININE 1.1 mg/dL (0.6-1.0); GFR 49.1; POTASSIUM 3.3 mmol/L (3.5-5.1); TOTAL BILIRUBIN 0.4 mg/dL (0.2-1.0); TOTAL PROTEIN 6.7 g/dL (6.4-8.2)
[2021-01-22 10:54] VITALS: BP 99/66
--- NOTE | 2021-01-22 13:15 | DISCH ---
DISCHARGE ORDERS DISCHARGE DATE: Jan 22, 2021 FINAL DIAGNOSIS hyperosmolar non ketotic hyperglycemia diabetic gastroparesis CONDITION AT DISCHARGE: Stable Code Status: Full SNF STAY <30 DAYS: Yes POST DISCHARGE ORDERS: ACTIVITY ORDERS: Resume previous activity, Other, see below WEIGHT BEARING STATUS: Non weight bearing DIET AFTER DISCHARGE: ADA WOUND/INCISION CARE: Keep wound/cast CDI, Change dressing, Reinforce dressing PRN DISCHARGE MEDICATIONS: Home Meds Reported Medications Calcium Citrate/Vitamin D3 (Calcium Citrate +Vit D3 Tablet) 1 Each Tablet, 1 TAB PO DAILY for Bone Health LAST DOSE GIVEN: DATE: TIME: NEXT DOSE DUE: DATE: TIME: 01/18/21 Metoclopramide Hcl (REGLAN) 10 Mg Tablet, 10 MG PO QID PRN for NAUSEA/VOMITING LAST DOSE GIVEN: DATE: TIME: NEXT DOSE DUE: DATE: TIME: 08/08/20 Citalopram Hydrobromide (CELEXA) 10 Mg Tablet, 10 MG PO DAILY for DEPRESSION LAST DOSE GIVEN: DATE: TIME: NEXT DOSE DUE: DATE: TIME: 08/08/20 Ondansetron Hcl (ONDANSETRON HCL) 4 Mg Tablet, 4 MG PO PRN Q6HRS PRN for NAUSEA/VOMITING LAST DOSE GIVEN: DATE: TIME: NEXT DOSE DUE: DATE: TIME: 06/24/20 Lovastatin (LOVASTATIN) 20 Mg Tablet, 20 MG PO DAILY for high cholesterol LAST DOSE GIVEN: DATE: TIME: NEXT DOSE DUE: DATE: TIME: 06/24/20 Amlodipine Besylate (AMLODIPINE BESYLATE) 2.5 Mg Tablet, 2.5 MG PO DAILY for high blood pressure LAST DOSE GIVEN: DATE: TIME: NEXT DOSE DUE: DATE: TIME: 06/24/20 Discontinued Reported Medications Insulin NPH Hum/Reg Insulin Hm (Novolin 70-30 Flexpen) 100 Unit/1 Ml Insuln.pen, 15 UNIT SQ TIDWMEALS for Diabetes LAST DOSE GIVEN: DATE: TIME: NEXT DOSE DUE: DATE: TIME: 01/18/21 LOBO CHRISTENSEN MD Jan 22, 2021 13:15
--- NOTE | 2021-01-22 13:49 | DS ---
DATE OF DISCHARGE: 01/22/2021 HOSPITAL COURSE: The patient is a 70-year-old female patient[place] [facility] [place] with extremely poorly controlled type 2 diabetes mellitus. She has nausea and epigastric pain. She is legally blind due to diabetic retinopathy. Her blood sugar on arrival to the Emergency Room was 712 when she came to the Emergency Room; however, her anion gap was only 14. She was admitted with hyperosmolar nonketotic hyperglycemia, started on insulin drip. Eventually she was started on Lantus insulin 18 units at bedtime and Novolin 70/30, 18 units before meals and her blood sugar has improved and a decision was made to [place] [facility] [place] unable to take care of her. PHYSICAL EXAMINATION: GENERAL: When I examined her this afternoon, she was sitting comfortably in her chair in no apparent respiratory distress. She was pale, but no jaundice, cyanosis or thyromegaly. No jugular venous distention. No lower limb edema. VITAL SIGNS: Her heart rate was 85, blood pressure was 99/66, temperature was 98.5, respiratory rate was 18 and oxygen saturation was 98%. HEAD, EYES, EARS, NOSE AND THROAT: Normocephalic, atraumatic. NECK: Supple. HEART: Showed normal first and second heart sounds, no gallop or murmur. CHEST: Clear to auscultation, no crepitation or rhonchi. ABDOMEN: Distended, soft, nontender. NEUROLOGIC: She is legally blind, but all other cranial nerves intact. She moves upper extremities to much greater extent than lower extremities. She is mostly bedbound, wheelchair bound. Her intake over the last 24 hours was 1050, output was 2750. LABORATORY DATA: As of this morning showed a serum sodium of 136, potassium 3.3, chloride 97, bicarbonate 33, anion gap of 6, BUN 15, creatinine 1.1, estimated GFR was 49 mL per minute. Her glucose was 80. Calcium was 8.5. Total bilirubin, AST, ALT, alkaline phosphatase were normal. Total protein 6.7, albumin was 2.7. DISCHARGE MEDICATIONS: The patient was [place] [facility] [place] metoclopramide 10 mg before meals and at bedtime, potassium chloride 30 mEq twice a day, Lantus insulin 18 units at bedtime, Humulin 70/30 18 units 3 times a day before meals, Lactobacillus 1 capsule twice a day, Protonix 40 mg once a day, ondansetron 4 mg p.o. every 4 hours as needed. She was also discharged on lovastatin 20 mg once a day, amlodipine 2.5 mg once a day, citalopram hydrobromide 10 mg once a day, calcium citrate with vitamin D3 one tablet once a day. FINAL DISCHARGE DIAGNOSES: 1. Hyperosmolar nonketotic hyperglycemia, resolved. 2. Poorly controlled type 2 diabetes mellitus, improved. 3. Hypokalemia, resolved. 4. Diabetic gastroparesis. 5. Diabetic retinopathy with resultant blindness. 6. Acute kidney injury, resolved. Her creatinine came down from 2.6 to 1.1. 7. Normochromic normocytic anemia with hemoglobin of 10, hematocrit 31. 8. Probably diabetic nephropathy and obstructive bladder outlet obstruction due to diabetic neurogenic bladder for which she has an indwelling Parks catheter. ELLIOTT DR: Katlyn TID: [id number]
--- NOTE | 2021-01-22 13:55 | NUR ---
Report This nurse called report to [facility] and spoke with Corine, Nursing staff. Addendum: 01/22/21 at 1412 by FRANC PARKER RN Report given to [facility].
--- NOTE | 2021-01-22 14:42 | NUR ---
Discharge Note Patient discharged to [facility] with transport services. Patient invasive lines discontinued without difficulty, telemetry removed, dressed in street clothing, and indwelling catheter left in place per order. Patient stable throughout discharge process, no acute concerns.
== END 2021-01-22 15:10 | DRG 637 ==
LOC: ER 16:57 → ICU 19:18 → 1 SOUTH 01-19 06:30
PROVIDERS: ADMIT Hospitalist; ATTEND Hospitalist
DX: E11.01 Type 2 diabetes mellitus with hyperosmolarity with coma (principal); N17.0 Acute kidney failure with tubular necrosis; E44.0 Moderate protein-calorie malnutrition; I24.8 Other forms of acute ischemic heart disease; N17.9 Acute kidney failure, unspecified; D63.8 Anemia in other chronic diseases classified elsewhere; E11.319 Type 2 diabetes mellitus with unspecified diabetic retinopathy without macular edema; E11.43 Type 2 diabetes mellitus with diabetic autonomic (poly)neuropathy; E11.65 Type 2 diabetes mellitus with hyperglycemia; E78.00 Pure hypercholesterolemia, unspecified; E78.5 Hyperlipidemia, unspecified; E86.0 Dehydration; E87.6 Hypokalemia; F32.9 Major depressive disorder, single episode, unspecified; H54.8 Legal blindness, as defined in USA; K31.84 Gastroparesis; N31.9 Neuromuscular dysfunction of bladder, unspecified; N32.0 Bladder-neck obstruction; Z79.4 Long term (current) use of insulin; Z82.5 Family history of asthma and other chronic lower respiratory diseases; Z87.01 Personal history of pneumonia (recurrent); I11.9 Hypertensive heart disease without heart failure; Z91.040 Latex allergy status; E11.51 Type 2 diabetes mellitus with diabetic peripheral angiopathy without gangrene; E11.22 Type 2 diabetes mellitus with diabetic chronic kidney disease; I13.10 Hypertensive heart and chronic kidney disease without heart failure, with stage 1 through stage 4 chronic kidney disease, or unspecified chronic kidney disease; N18.9 Chronic kidney disease, unspecified; Z99.3 Dependence on wheelchair
CPT/HCPCS: 36415; 71045; 80048; 80053; 81001; 82010; 82550; 82803; 82947; 83605; 83690; 83735; 84100; 84484; 85025; 85610; 85730; 87040; 87086; 93005; 96365; C9113; J0696; J1815; J2405; J2765; J3010; J3475; J7120; 97530; 99285-25; J7030

== ENCOUNTER 2021-03-26 11:47 | Inpatient (IN) | payer MEDICARE, OTHER ==
[~2021-03-26] VITALS: Ht 165.1 cm; Wt 74.1 kg
[~2021-03-26 11:47] MED LIST changes: +CALC-558 PO; +INSU100I41 SQ
[2021-03-26] MEDS ORDERED: ONDANSETRON PF 4 MG/2 ML VIAL. IVP ONE (12:15)
[2021-03-26] MEDS ORDERED: FAMOTIDINE 20 MG/2 ML VIAL IVP ONE (12:15)
[2021-03-26] MEDS ORDERED: ACETAMINOPHEN 500 MG TABLET PO ONE (12:15)
[2021-03-26] MEDS ORDERED: IV NORMAL SALINE 1,000ML 1,000 ML IV ONE ×2 (12:15→13:00)
[2021-03-26] MEDS ORDERED: IOHEXOL 300 MG/ML 75 ML VIAL. IV ONE (12:15)
[2021-03-26 12:30] LABS: BASO % 0 % (0-3); EOS % 0 % (0-3); HEMATOCRIT 27.5 % (36.0-47.0); HEMOGLOBIN 9.1 g/dL (12.0-15.5); LYMPH # 0.9 x10^3/uL (1.0-4.8); LYMPH % 12 % (24-48); MEAN CORPUSCULAR HEMOGLOBIN 28 pg (25-35); MEAN CORPUSCULAR HGB CONC 33 g/dL (31-37); MEAN CORPUSCULAR VOLUME 84 fL (79-100); MONO % 13 % (0-9); NEUT % 75 % (31-73); PLATELET COUNT 156 x10^3/uL (140-400); RED BLOOD COUNT 3.27 x10^6/uL (3.50-5.40); RED CELL DISTRIBUTION WIDTH 15.1 % (11.5-14.5)
--- NOTE | 2021-03-26 12:30 | PHYS DOC ---
Past History Past Medical History: Anemia, Anxiety, Arthritis, CAD, Depression, Diabetes, High Cholesterol, Heart Disease, Hypertension, Pneumonia, Renal Disease, UTI, Other Additional Past Medical Histor: THROMBOCYTOPENIA, macular degeneration causing blindness Past Surgical History: Other Additional Past Surgical Histo: UNKNOWN SURGICAL HX Smoking: Non-smoker Alcohol Use: None Drug Use: None General Adult EDM: Chief Complaint: NAUSEA/VOMITING/DIARRHEA HPI: HPI: 70-year-old female presents via EMS from [facility] with report of generalized weakness/malaise, body aches, and nausea and vomiting x2 days. Patient is legally blind. Patient denies known sick contacts. Patient did undergo a rapid Covid test at [facility] which was reportedly negative. [facility] concerned as patient's blood sugar was in the 300s this morning. EMS reports rechecking and noting sugar to be down to 231. Patient denies trauma. Patient has received Covid vaccinations. Review of Systems: Review of Systems: Constitutional: Reports body aches and chills HENT: Denies nasal congestion or sore throat Respiratory: Denies cough or shortness of breath Cardiovascular: Denies chest pain or palpitations GI: Reports suprapubic abdominal discomfort and nausea and vomiting : Denies dysuria; reports increased urinary frequency Musculoskeletal: Reports right flank pain; denies joint pain Integument: Denies rash or skin lesions Neurologic: Denies headache, focal weakness or sensory changes Complete systems were reviewed and found to be within normal limits, except as documented in this note. Current Medications: Current Meds: Current Medications Medications (Trade) Dose Ordered Sig/April Start Time Stop Time Status Last Admin Dose Admin Acetaminophen (Tylenol) 500 mg 1X ONCE 03/26/21 12:15 03/26/21 12:16 DC Ceftriaxone Sodium 1 gm/ Sodium Chloride 50 ml @ 100 mls/hr 1X ONCE 03/26/21 12:15 03/26/21 12:44 Famotidine (Pepcid Vial) 20 mg 1X ONCE 03/26/21 12:15 03/26/21 12:16 DC Iohexol (Omnipaque 300 Mg/ml) 75 ml 1X ONCE 03/26/21 12:15 03/26/21 12:28 DC Ondansetron HCl (Zofran) 4 mg 1X ONCE 03/26/21 12:15 9/29/21 12:16 DC Sodium Chloride 1,000 ml @ 1,000 mls/hr 1X ONCE 03/26/21 12:15 03/26/21 13:14 Allergies: Allergies: Allergies Coded Allergies Type Severity Reaction Last Updated Verified latex Allergy Mild skin irritation 08/07/20 Yes Physical Exam: PE: Constitutional: Well developed, well nourished, no acute distress, non-toxic appearance HENT: Normocephalic, atraumatic Eyes: Blindness, no discharge Neck: Normal range of motion, bilateral paraspinal tenderness, supple Lungs & Thorax: No respiratory distress, equal chest rise and fall Abdomen: Soft, suprapubic tenderness, mild distention Skin: Warm, dry, no erythema, no rash Back: No tenderness, no CVA tenderness Extremities: No tenderness, ROM intact, no edema Neurologic: Alert and oriented X 3, no focal deficits noted Psychologic: Affect normal, judgment normal Current Patient Data: Vital Signs: Vital Signs Date Time Temp Pulse Resp B/P (MAP) Pulse Ox O2 Delivery O2 Flow Rate FiO2 03/26/21 11:50 100.4 84 20 152/66 (94) 98 Room Air EKG: EKG: @1222 NSR at 84bpm, NO ST elevation, QRS 76ms, QT/QTc 350/417ms Radiology/Procedures: Radiology/Procedures: PROCEDURE: CT CHEST ABDOMEN PELVIS WO Study: CT chest, abdomen and pelvis without contrast INDICATION: Weakness, nausea/vomiting, pain and fever. COMPARISON: 08/08/2020 TECHNIQUE: Helical CT imaging performed of the chest, abdomen and pelvis performed without the use of contrast. Coronal and sagittal reformats were obtained. One or more of the following individualized dose reduction techniques were utilized for this examination: 1. Automated exposure control 2. Adjustment of the mA and/or kV according to patient size 3. Use of iterative reconstruction technique. FINDINGS: CT Chest: There is again marked enlargement of the partially imaged right thyroid lobe with several calcifications. The extent of enlargement and parenchymal heterogeneity is similar. Multifocal calcific atherosclerosis with severe trivessel coronary artery involvement. Nonaneurysmal aorta. Only a small amount of pericardial fluid. No newly developed mediastinal or hilar lymphadenopathy. No significant new or enlarging pulmonary nodule. No confluent infiltrate. No pleural effusion. Minimal basilar volume loss. Patent central airways. No axillary adenopathy. The breasts are incompletely assessed by CT. Subcutaneous fatty reticulation as can be seen with body wall edema. The extent is similar to the prior. Osteopenia and degenerative/chronic changes at multiple locations. There is a n ondisplaced, healing fracture of the mid sternum which was not seen on the comparison. No acute or subacute fracture identified throughout the thoracic spine. Diffuse idiopathic skeletal hyperostosis. CT Abdomen/Pelvis: Inherently limited study without the use of intravenous contrast. No newly appreciated focal abnormality of the liver. A few gallstones without evidence for acute cholecystitis. Nondilated biliary tree. Unchanged pancreas, spleen and adrenal glands. Incompletely characterized cystic focus at the medial aspect of the right kidney upper pole which was present on the comparison. A few small nonobstructing intrarenal stones. No hydronephrosis. Partially duplicated right collecting system. Newly developed circumferential wall thickening of the urinary bladder. There is stranding of the perivesicular fat. Unchanged uterus. No adnexal mass. Rectal distention with well-formed stool which was also present previously but less pronounced on this exam. The rectum is measured up to 6.7 x 7.4 cm on image 174 series 2 compared to 7.9 x 8 cm. Slightly decreased presacral edema. Ankle but for stool within the more proximal colon no inflammatory changes at the expected location of the appendix. Nonobstructed small bowel. The partially evaluated stomach is within normal limits considering luminal underdistention. Extensive calcific atherosclerosis. Nonaneurysmal aorta. Incomplete assessment for any resultant stenoses. No lymphadenopathy. Similar extent of subcutaneous fatty reticulation. Right femur surgical hardware extending across a healed fracture. Osteopenia. Chronic mild obturator ring deformity on the left. Bilateral hip arthrosis. No evidence for a sacral insufficiency fracture. No change in vertebral body height or alignment. IMPRESSION: CT Chest: 1. No acute abnormality identified throughout the chest. 2. Healing/subacute mid sternal fracture which was not identified on the 08/08/2020 comparison. Correlate with patient history for interval trauma. 3. Redemonstrated marked enlargement of the partially imaged right thyroid lobe with parenchymal heterogeneity and a few calcifications. No significant change from the prior. CT Abdomen/Pelvis: 1. Circumferential bladder wall thickening and mild surrounding inflammation, which could indicate cystitis, and is new from the prior. Correlate with urinalysis. 2. There is again constipation with rectal distention with well-formed stool but slightly less pronounced from the 08/08/2020 comparison. 3. Additional chronic/unchanged observations as outlined in the body of the report. Electronically signed by: SONALI OROZCO MD (03/26/2021 2:34 PM) [facility] Heart Score: C/O Chest Pain: N/A Course & Med Decision Making: Course & Med Decision Making Pertinent Labs and Imaging studies reviewed. (See chart for details) Elderly patient who is clinically blind secondary to macular degeneration presents from [facility] with report of subjective chills, body aches, and nausea and vomiting x2 days. Abdomen nonperitoneal. Patient also reports she is had increased urinary frequency. Fever noted upon arrival. Fever addressed. Concern for sepsis. UA with signs of active infection. Empiric antibiotic initiated. IV fluid hydration given. Labs obtained and posted to chart. Lactic acid elevated. Blood cultures pending. Rapid Covid negative. Patient has received Covid vaccination but testing was obtained secondary to fever. Hypomagnesia and hyponatremia addressed. Patient requiring admission for further evaluation and treatment. Discussed with Dr. Nobles (hospitalist) who is in agreement with admission. Discussed findings and plan with patient, who acknowledges understanding and agreement. COVID-19 CRITERIA: The patient was evaluated during the global COVID-19 pandemic, and that diagnosis was suspected/considered upon their initial presentation. Their evaluation, treatment and testing was consistent with current guidelines for patients who present with complaints or symptoms that may be related to COVID-19. Dragon Disclaimer: Dragon Disclaimer: This electronic medical record was generated, in whole or in part, using a voice recognition dictation system. Departure Departure: Impression: Primary Impression: Severe sepsis Additional Impressions: UTI (urinary tract infection) Qualified Codes: N30.00 - Acute cystitis without hematuria Hyponatremia Hypomagnesemia Constipation Qualified Codes: K59.00 - Constipation, unspecified Disposition: ADMITTED INPATIENT Admitting Physician: Jarod Nobles Condition: STABLE Referrals: WALT NOLASCO (PCP) COVID-19 Assessment COVID-19 Patient Risks: Age 65 or older: Yes Sign of co-morbidity: Yes Exp to person + for COVID: No Exp to PUI: No Travel from affected area: No Lower respiratory symptoms: No Fever: Yes Other: Yes PPE Use: Full PPE with N95 mask or PAPR: Yes Sepsis Assessment Date and Time of Assessment Date: Mar 26, 2021 Time: 13:59 Fluid Challenge: Is the fluid challenge complet: No IBW Target Volume Used: No BMI > 30: No Vital Signs Vital Signs Vital Signs Date Time Temp Pulse Resp B/P (MAP) Pulse Ox O2 Delivery O2 Flow Rate FiO2 03/26/21 11:50 100.4 84 20 152/66 (94) 98 Room Air Temperature Source: Oral Respirations Respiratory Effort: Normal Respiratory Pattern: Normal Cardiovascular Pulse Rhythm: Regular Heart: Nml rate, reg. rhythm Lung Sounds Breath Sounds: Diminished Capillary Refill Capillary Refill: Rt Hand < 3 seconds Peripheral Pulse Pulse Location: Radial Pulse Strength: Normal (2+) Pulse Assessment Method: Palpation Integumentary Skin: Warm, Dry, No Rashes Skin Moisture: Dry Skin Turgor: Normal Skin Color: warm, dry Fingernail Color: WNL Critical Care Time Critical care time was 30 minutes which includes time at bedside, spent in discussion of patient's care with specialists and/or family members, with interpretation of laboratory and/or radiological studies and is exclusive of procedures. AMARA VALENZUELA DO Mar 26, 2021 12:30
[2021-03-26 12:38] LABS: BILIRUBIN,URINE NEG (NEG); CLARITY,URINE CLOUDY; COLOR,URINE YELLOW; GLUCOSE,URINE 250 mg/dL (NEG); NITRITE,URINE POS (NEG); RBC,URINE 0 /HPF (0-2); UROBILINOGEN,URINE 0.2 mg/dL (0.2 mg/dL)
[2021-03-26 12:39] LABS: BACTERIA,URINE MANY /HPF (0-FEW)
[2021-03-26 12:45] LABS: CALCIUM 9.1 mg/dL (8.5-10.1); CREATININE 1.4 mg/dL (0.6-1.0); GFR 37.2; POTASSIUM 4.9 mmol/L (3.5-5.1)
[2021-03-26] MEDS ORDERED: ORPHENADRINE CITRATE 60 MG/2 ML VIAL. IV ONE (12:45)
[2021-03-26] MEDS ORDERED: IV NORMAL SALINE 500ML 500 ML IV ONE (13:00)
[2021-03-26 13:01] LABS: ALBUMIN 3.2 g/dL (3.4-5.0); ALBUMIN/GLOBULIN RATIO 0.8 (1.0-1.7); MAGNESIUM 1.6 mg/dL (1.8-2.4); TOTAL BILIRUBIN 0.5 mg/dL (0.2-1.0)
[2021-03-26] MEDS ORDERED: cefTRIAXone SODIUM 1 GM VIAL ONE (13:02)
[2021-03-26] MEDS ORDERED: IV NORMAL SALINE 50ML 50 ML ONE (13:02)
[2021-03-26] MEDS ORDERED: MAGNESIUM SULFATE 2GM 50 ML IV ONE (14:00)
--- NOTE | 2021-03-26 14:36 | RAD ---
Study: CT chest, abdomen and pelvis without contrast INDICATION: Weakness, nausea/vomiting, pain and fever. COMPARISON: 08/08/2020 TECHNIQUE: Helical CT imaging performed of the chest, abdomen and pelvis performed without the use of contrast. Coronal and sagittal reformats were obtained. One or more of the following individualized dose reduction techniques were utilized for this examinat ion: 1. Automated exposure control 2. Adjustment of the mA and/or kV according to patient size 3. Use of iterative reconstruction technique. FINDINGS: CT Chest: There is again marked enlargement of the partially imaged right thyroid lobe with several calcificati ons. The extent of enlargement and parenchymal heterogeneity is similar. Multifocal calcific atherosc lerosis with severe trivessel coronary artery involvement. Nonaneurysmal aorta. Only a small amount o f pericardial fluid. No newly developed mediastinal or hilar lymphadenopathy. No significant new or enlarging pulmonary nodule. No confluent infiltrate. No pleural effusion. Minim al basilar volume loss. Patent central airways. No axillary adenopathy. The breasts are incompletely assessed by CT. Subcutaneous fatty reticulation as can be seen with body wall edema. The extent is similar to the prior. Osteopenia and degenerative/chronic changes at multiple locations. There is a nondisplaced, healing f racture of the mid sternum which was not seen on the comparison. No acute or subacute fracture identi fied throughout the thoracic spine. Diffuse idiopathic skeletal hyperostosis. CT Abdomen/Pelvis: Inherently limited study without the use of intravenous contrast. No newly appreciated focal abnormality of the liver. A few gallstones without evidence for acute chol ecystitis. Nondilated biliary tree. Unchanged pancreas, spleen and adrenal glands. Incompletely characterized cystic focus at the medial aspect of the right kidney upper pole which was present on the comparison. A few small nonobstructing intrarenal stones. No hydronephrosis. Partiall y duplicated right collecting system. Newly developed circumferential wall thickening of the urinary bladder. There is stranding of the perivesicular fat. Unchanged uterus. No adnexal mass. Rectal distention with well-formed stool which was also present previously but less pronounced on thi s exam. The rectum is measured up to 6.7 x 7.4 cm on image 174 series 2 compared to 7.9 x 8 cm. Sligh tly decreased presacral edema. Ankle but for stool within the more proximal colon no inflammatory idleep nges at the expected location of the appendix. Nonobstructed small bowel. The partially evaluated sto mach is within normal limits considering luminal underdistention. Extensive calcific atherosclerosis. Nonaneurysmal aorta. Incomplete assessment for any resultant sten oses. No lymphadenopathy. Similar extent of subcutaneous fatty reticulation. Right femur surgical hardware extending across a healed fracture. Osteopenia. Chronic mild obturator ring deformity on the left. Bilateral hip arthrosis. No evidence for a sacral insufficiency fracture. No change in vertebral body height or alignment. IMPRESSION: CT Chest: 1. No acute abnormality identified throughout the chest. 2. Healing/subacute mid sternal fracture which was not identified on the 08/08/2020 comparison. Corre late with patient history for interval trauma. 3. Redemonstrated marked enlargement of the partially imaged right thyroid lobe with parenchymal het erogeneity and a few calcifications. No significant change from the prior. CT Abdomen/Pelvis: 1. Circumferential bladder wall thickening and mild surrounding inflammation, which could indicate c ystitis, and is new from the prior. Correlate with urinalysis. 2. There is again constipation with rectal distention with well-formed stool but slightly less prono unced from the 08/08/2020 comparison. 3. Additional chronic/unchanged observations as outlined in the body of the report. Electronically signed by: SONALI OROZCO MD (03/26/2021 2:34 PM) [facility]
[2021-03-26] MEDS ORDERED: DEXTROSE 50% 25 GM / 50ML DISP.SYRIN. IV PRN (14:45)
[2021-03-26] MEDS ORDERED: ONDANSETRON PF 4 MG/2 ML VIAL. IVP PRN (14:45)
[2021-03-26 16:20] VITALS: BP 122/63
[2021-03-26] MEDS ORDERED: SPIR50TA PO (16:54)
[2021-03-26] MEDS ORDERED: ACET325T9 PO (16:54)
[2021-03-26] MEDS ORDERED: HYDR-2759 PO (16:54)
[2021-03-26] MEDS ORDERED: INSU100I13 SQ ×2 (16:54)
[2021-03-26] MEDS ORDERED: BISA5TAB4 PO (16:54)
[2021-03-26] MEDS: INSULIN LISPRO 300 UNITS/3 ML VIAL. SQ SCH (17:00)
[2021-03-26] MEDS: ACETAMINOPHEN 325 MG TABLET PO PRN (18:35)
[2021-03-26 18:45] VITALS: BP 156/61
[2021-03-26] MEDS ORDERED: METOCLOPRAMIDE 10 MG TABLET PO PRN (19:45)
[2021-03-26] MEDS ORDERED: HYDROcodone/APAP 5/325MG 1 TAB TABLET PO PRN (19:45)
[2021-03-26] MEDS ORDERED: CITALOPRAM 10 MG TABLET. PO ONE (20:15)
[2021-03-26] MEDS: ATORVASTATIN CALCIUM 10 MG TABLET. PO SCH (20:32)
[2021-03-26] MEDS: INSULIN GLARGINE SYRINGE. SQ SCH (21:23)
[2021-03-27 05:43] VITALS: BP 155/67
--- NOTE | 2021-03-27 06:20 | EKG ---
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
[2021-03-27] MEDS: INSULIN LISPRO 300 UNITS/3 ML VIAL. SQ SCH ×3 (08:36→16:54)
[2021-03-27] MEDS: CITALOPRAM 10 MG TABLET. PO SCH (08:39)
[2021-03-27] MEDS: INSULIN GLARGINE SYRINGE. SQ SCH ×2 (09:04→21:05)
[2021-03-27 10:47] VITALS: BP 115/64
--- NOTE | 2021-03-27 11:15 | HP ---
ADMIT DATE: 03/26/2021 ATTENDING PHYSICIAN: Dr. Nobles. CHIEF COMPLAINT: Nausea and weakness. HISTORY OF PRESENT ILLNESS: The patient is a 70-year-old female with multiple medical issues. She is a current resident of [facility]. She has had a 2-day history of low-grade fevers, nausea, vomiting and profound weakness. The patient is legally blind. She is not fully ambulatory. She had a negative rapid COVID test, which was done. Sugars were elevated in the 300s. She has symptoms of urinary tract infection. Cultures are pending. She is admitted then with urinary tract infection and poorly controlled diabetes mellitus. PAST MEDICAL HISTORY: Significant for macular degeneration causing blindness. She has anemia of chronic disease, generalized anxiety, depression, mild dementia, hypertension, heart disease, episodes of pneumonia in the past, chronic kidney disease and frequent UTIs. She also has thrombocytopenia. CURRENT MEDICATIONS: Reviewed. They include the following: She was scheduled to take Tylenol, bisacodyl, calcium, citalopram, hydrocodone p.r.n., regular and Lantus insulin, lovastatin, metoclopramide, ondansetron and Aldactone. ALLERGIES: SHE HAS ALLERGIES TO LATEX. NO DRUGS. PAST SURGICAL HISTORY: Hip fracture, requiring ORIF, distal radius fracture following a fall. FAMILY HISTORY: Noncontributory. REVIEW OF SYSTEMS: Significant for generalized weakness, low-grade fevers, some nausea, one episode of vomiting. All other systems reviewed and turned to be negative. PHYSICAL EXAMINATION: GENERAL: When I saw her, this is a pleasant blind female, who is bedridden. VITAL SIGNS: Initial vital signs showed blood pressure 155/67 mmHg, pulse is 74 and regular. She is afebrile. Oxygen saturation 93% on room air. HEENT: Head is without trauma. Pupils are reactive. Sclerae nonicteric. She is legally blind. NECK: Supple, no bruits. LUNGS: Good breath sounds. CARDIOVASCULAR: Showed regular heart tones. No gallops. ABDOMEN: Soft. No organomegaly. Bowel sounds are hypoactive. EXTREMITIES: Show trace edema. NEUROLOGIC: Function focally intact. Her speech is fluent. PERTINENT LABORATORY STUDIES: Hemoglobin is 9.1 g/dL, platelet count 156,000, white count 8000. Nonfasting blood sugar 125. It has been over 300 on admission. Urinalysis showed bacteria. Cultures are pending, large amount of leukocyte esterase. CT of the chest, abdomen and pelvis showed no acute chest or thoracic abnormalities. Circumferential bladder wall thickening. No masses identified. Large amount of stool in the rectal vault. No acute changes were found. ASSESSMENT: 1. A 70-year-old female, care home resident with urinary tract infection. 2. Mild dehydration. 3. Anemia of chronic disease. 4. Blindness due to macular degeneration. 5. Type 2 diabetes with poorly controlled sugars. 6. Generalized debilitation. PLAN: 1. Admit to the inpatient unit. 2. Cultures have been drawn and are pending. 3. Empiric Rocephin ordered. 4. Glucose control. 5. Continue some home meds. ADRIANNA DR: Franki TID: [id number]
[2021-03-27] MEDS: ACETAMINOPHEN 325 MG TABLET PO PRN (14:45)
[2021-03-27 14:53] VITALS: BP 127/58
[2021-03-27 14:54] VITALS: BP 127/58
[2021-03-27 19:00] VITALS: BP 120/53
[2021-03-27] MEDS: ATORVASTATIN CALCIUM 10 MG TABLET. PO SCH (21:01)
[2021-03-27 23:16] VITALS: BP 125/51
[2021-03-28 06:11] VITALS: BP 164/74
[2021-03-28] MEDS: INSULIN LISPRO 300 UNITS/3 ML VIAL. SQ SCH (07:09)
[2021-03-28] MEDS: CITALOPRAM 10 MG TABLET. PO SCH (08:24)
[2021-03-28] MEDS: INSULIN GLARGINE SYRINGE. SQ SCH (09:11)
--- NOTE | 2021-03-28 13:35 | DS ---
DATE OF DISCHARGE: 03/28/2021 ATTENDING PHYSICIAN: Dr. Nobles. FINAL DISCHARGE DIAGNOSES: 1. Urinary tract infection, treated. 2. Mild dehydration. 3. Anemia of chronic disease. 4. Poorly controlled diabetes. 5. Nausea, resolved. 6. Macular degeneration, resulting in blindness. 7. Type 2 diabetes with some hyperglycemia. 8. Generalized debilitation. HISTORY AND PHYSICAL: The patient is a 70-year-old female from a local group home. She got nauseated. She has symptoms of urinary tract infection. She was admitted through the ED. She is blind and requires total care. OBJECTIVE FINDINGS: PHYSICAL EXAMINATION: Please see the dictated note. PERTINENT LABORATORY AND X-RAY STUDIES: Cultures of the urine grew out greater than 100,000 colonies E. coli, sensitivity is pending. She has been treated with broad-spectrum antibiotics. The hemoglobin is 9.1 g/dL, white count 8000. Nonfasting blood sugar was elevated. It came down nicely with treatment, 198, 184, 142, and 119 prior to discharge. COURSE IN HOSPITAL: The patient was started on empiric Rocephin. She received 3 full days of this. She did better. Diet was advanced. She still required a sitter to help feed her as she cannot see. By the third hospital day, her vital signs were quite stable. She was afebrile, blood pressure was 125/51, oxygen saturation 97%, pulse is regular. She wanted to go home. I felt this is reasonable. Therefore, I discharged her with 5 more days of cephalexin 500 mg p.o. t.i.d. and then stop. She will continue her bisacodyl, calcium, Celexa, insulin Lantus and regular as scheduled, lovastatin, Reglan, ondansetron p.r.n. and Aldactone 50 mg p.o. daily. For now, we held her hydrocodone because of confusion and nausea. She remains a full code. We will ascertain her code status upon returning to the group home. She was discharged then from our hospital in stable condition with explicit drug and followup care. Total discharge time spent [address]: CORY/nolan TID: [id number]
== END 2021-03-28 10:01 | DRG 690 ==
LOC: ER 11:47 → 1 SOUTH 14:45
PROVIDERS: ADMIT Hospitalist; ATTEND Hospitalist
DX: N39.0 Urinary tract infection, site not specified (principal); R65.10 Systemic inflammatory response syndrome (SIRS) of non-infectious origin without acute organ dysfunction; E87.1 Hypo-osmolality and hyponatremia; E86.0 Dehydration; I25.10 Atherosclerotic heart disease of native coronary artery without angina pectoris; F32.9 Major depressive disorder, single episode, unspecified; F41.9 Anxiety disorder, unspecified; M19.90 Unspecified osteoarthritis, unspecified site; E78.00 Pure hypercholesterolemia, unspecified; H54.8 Legal blindness, as defined in USA; Z20.822 Contact with and (suspected) exposure to COVID-19; E83.42 Hypomagnesemia; K59.00 Constipation, unspecified; D63.8 Anemia in other chronic diseases classified elsewhere; E11.22 Type 2 diabetes mellitus with diabetic chronic kidney disease; H35.30 Unspecified macular degeneration; E11.65 Type 2 diabetes mellitus with hyperglycemia; F03.90 Unspecified dementia, unspecified severity, without behavioral disturbance, psychotic disturbance, mood disturbance, and anxiety; N18.9 Chronic kidney disease, unspecified; I12.9 Hypertensive chronic kidney disease with stage 1 through stage 4 chronic kidney disease, or unspecified chronic kidney disease; F41.1 Generalized anxiety disorder; Z87.440 Personal history of urinary (tract) infections; Z87.01 Personal history of pneumonia (recurrent); Z91.040 Latex allergy status
CPT/HCPCS: 36415; 71250; 74176; 80053; 81001; 82010; 82553; 82947; 83605; 83690; 83735; 84484; 85025; 87040; 87077; 87086; 87186; 87205; 87426; 93005; 96361; 96365; 96375; J0696; J1815; J2360; J2405; J3475; J3490; J7040; U0003; 97110; 97116; 97530; 97535; 99291-25; J7030

== ENCOUNTER 2021-06-10 13:29 | Inpatient (IN) | payer OTHER ==
[~2021-06-10] VITALS: Ht 165.1 cm; Wt 73.9 kg
[~2021-06-10 13:29] MED LIST changes: +ACET325T9 PO; +BISA5TAB4 PO; +HYDR-2759 PO; -LISI-517 PO; +LISI5TAB15 PO; +SPIR50TA PO
[2021-06-10] MEDS ORDERED: IV NORMAL SALINE 1,000ML 1,000 ML IV SCH (13:45)
[2021-06-10 13:57] LABS: BASO % 1 % (0-3); EOS # 0.1 x10^3/uL (0.0-0.7); EOS % 2 % (0-3); HEMATOCRIT 25.2 % (36.0-47.0); HEMOGLOBIN 8.2 g/dL (12.0-15.5); LYMPH # 0.8 x10^3/uL (1.0-4.8); LYMPH % 16 % (24-48); MEAN CORPUSCULAR HEMOGLOBIN 27 pg (25-35); MEAN CORPUSCULAR HGB CONC 32 g/dL (31-37); MEAN CORPUSCULAR VOLUME 83 fL (79-100); MONO # 0.6 x10^3/uL (0.0-1.1); MONO % 11 % (0-9); NEUT # 3.6 x10^3uL (1.8-7.7); NEUT % 70 % (31-73); PLATELET COUNT 227 x10^3/uL (140-400); RED BLOOD COUNT 3.05 x10^6/uL (3.50-5.40); RED CELL DISTRIBUTION WIDTH 15.6 % (11.5-14.5); WHITE BLOOD COUNT 5.1 x10^3/uL (4.0-11.0)
[2021-06-10 14:11] LABS: CALCIUM 9.1 mg/dL (8.5-10.1); CREATININE 1.8 mg/dL (0.6-1.0); GFR 27.8; POTASSIUM 3.7 mmol/L (3.5-5.1)
[2021-06-10 14:23] LABS: ALBUMIN 3.2 g/dL (3.4-5.0); ALBUMIN/GLOBULIN RATIO 0.9 (1.0-1.7); MAGNESIUM 1.8 mg/dL (1.8-2.4); TOTAL BILIRUBIN 0.2 mg/dL (0.2-1.0); TOTAL PROTEIN 6.9 g/dL (6.4-8.2)
[2021-06-10 14:31] LABS: BARBITURATES NEG (NEG); BENZODIAZEPINES NEG (NEG); CANNABINOIDS NEG (NEG); COCAINE NEG (NEG); METHADONE NEG (NEG); OPIATES NEG (NEG); PHENCYCLIDINE NEG (NEG)
--- NOTE | 2021-06-10 14:31 | RAD ---
Site ID: [id number] EXAMINATION: CT HEAD/BRAIN WO. TECHNIQUE: Noncontrast axial images of the brain were obtained with coronal and sagittal reconstructi ons. One or more of the following radiation dose reduction techniques was used: automated exposure control , adjustment of mA and/or KV according to patient size, and/or utilization of iterative reconstructio n technique. HISTORY: 70 years Female Reason: seizure?syncope. Altered mental status FINDINGS: There is no intracranial hemorrhage, edema or mass effect. The brain parenchyma demonstrat es periventricular and deep white matter hypodensities compatible with chronic microvascular ischemic changes. Size of the ventricles is appropriate. The visualized portions of the orbits and paranasal sinuses appear unremarkable. IMPRESSION: No acute process. Electronically signed by: Werner Barber MD (06/10/2021 2:29 PM) [id number]
[2021-06-10 14:42] LABS: AMPHETAMINE/METHAMPHETAMINE NEG (NEG)
--- NOTE | 2021-06-10 14:45 | RAD ---
XR CHEST 1V History: Reason: seizure / Spl. Instructions: / History: Comparison: January 18, 2021 Findings: No consolidation or pleural effusion. Normal heart size. No pneumothorax. Glenohumeral DJD. Impression: 1. No acute cardiopulmonary process. Electronically signed by: Ricky Ding DO (06/10/2021 2:43 PM) [id number]
[2021-06-10 15:21] LABS: BILIRUBIN,URINE NEG (NEG); CLARITY,URINE CLOUDY; COLOR,URINE YELLOW; GLUCOSE,URINE 250 mg/dL (NEG); NITRITE,URINE NEG (NEG); UROBILINOGEN,URINE 0.2 mg/dL (0.2 mg/dL)
[2021-06-10 15:22] LABS: AMORPHOUS SEDIMENT,UR PRESENT /HPF; BACTERIA,URINE MOD /HPF (0-FEW); HYALINE CASTS, URINE FEW /HPF; SQUAMOUS EPITHELIAL CELL,UR MANY /LPF
--- NOTE | 2021-06-10 15:32 | EKG ---
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
--- NOTE | 2021-06-10 16:23 | RAD ---
Bilateral Lower Extremity Venous Doppler Ultrasound History: Reason: lle swelling >> RLE / Spl. Instructions: / History: Comparison: None Procedure: Color flow, duplex, spectral analysis and 2D images are obtained with and without compress ion in the area of the common femoral vein, superficial femoral vein - femoral vein junction, main fe moral vein (superficial femoral vein) and popliteal vein. Veins of the proximal calf are also imaged. Findings: There is nonocclusive thrombus seen in the left lower extremity from the common femoral vein through the SFV and popliteal vein as well as clot seen in the peroneal and greater saphenous vein. There is normal duplex flow, color flow and compressibility of all remaining visualized vein segments . No evidence of deep venous thrombus is present on the right. Impression: 1. Extensive deep venous thrombosis in the left lower extremity. 2. Clot in the greater saphenous vein on the left. Electronically signed by: Mike Boyd III, MD (06/10/2021 4:21 PM) [facility]
[2021-06-10] MEDS ORDERED: PIPERACILLIN/TAZOBACTAM 4.5 GM in IV NORMAL SALINE 50ML 50 ML IV ONE (17:00)
--- NOTE | 2021-06-10 17:04 | PHYS DOC ---
Past History Past Medical History: Anemia, Anxiety, Arthritis, CAD, Depression, Diabetes, High Cholesterol, Heart Disease, Hypertension, Pneumonia, Renal Disease, UTI, Other Additional Past Medical Histor: THROMBOCYTOPENIA, macular degeneration causing blindness (KEVIN DÍAZ DO) Past Surgical History: Other Additional Past Surgical Histo: UNKNOWN SURGICAL HX (KEVIN DÍAZ DO) Smoking: Non-smoker Alcohol Use: None Drug Use: None (KEVIN DÍAZ DO) General Adult EDM: Chief Complaint: SEIZURE HPI: HPI: 70-year-old female past medical history significant for hypertension, orthostatic hypotension, diabetes, osteoarthritis, hyperlipidemia, kidney disease, and cad presents the ED brought in by medics with concern for seizure- like activity versus syncope. [facility] reports patient had a seizure or near-syncopal event that lasted approximately 2 minutes. Pt reports consciousness the entire time. Glucose was within normal limits. Medications reviewed and patient is not on any anticoagulants. Patient is currently on Bactrim for UTI. (KEVIN DÍAZ DO) Review of Systems: Review of Systems: Constitutional: Denies fever or chills Eyes: Denies change in visual acuity HENT: Denies nasal congestion or sore throat Respiratory: Denies cough or shortness of breath Cardiovascular: Denies chest pain or edema GI: Denies abdominal pain, nausea, vomiting, bloody stools or diarrhea : Denies dysuria or hematuria Musculoskeletal: Denies back pain or joint pain Integument: Denies rash or diaphoresis Neurologic: Denies headache, focal weakness or sensory changes Endocrine: Denies polyuria or polydipsia Lymphatic: Denies swollen glands Psychiatric: Denies depression or anxiety (KEVIN DÍAZ DO) Current Medications: Current Meds: Current Medications Medications (Trade) Dose Ordered Sig/April Start Time Stop Time Status Last Admin Dose Admin Sodium Chloride 1,000 ml @ 1,000 mls/hr Q1H 06/10/21 13:45 06/10/21 14:44 DC 06/10/21 13:45 1,000 MLS/HR (KEVIN DÍAZ DO) Allergies: Allergies: Allergies Coded Allergies Type Severity Reaction Last Updated Verified latex Allergy Mild skin irritation 08/07/20 Yes I S O L A T I O N *CONTACT* Allergy Unknown 04/04/21 Yes (KEVIN DÍAZ DO) Physical Exam: PE: Constitutional: Well developed, well nourished, no acute distress, non-toxic appearance. HENT: Normocephalic, atraumatic, Eyes: EOMI, conjunctiva normal, no discharge. Neck: Normal range of motion, supple, Cardiovascular: S1/2 present, regular rhythm Lungs & Thorax: Speaking in full sentences, bilateral equal chest rise, no tachypnea or increased work of breathing Abdomen: soft, no tenderness, obese Skin: Warm, dry, no erythema, no rash. [] Extremities: No tenderness, no cyanosis, significant left lower extremity edema when compared to right Neurologic: Alert, normal motor function, normal sensory function, no focal deficits noted. [] Psychologic: Affect normal, judgement normal, mood normal. [] ([facility],KEVIN Tobin DO) Current Patient Data: Labs: Laboratory Tests Test 06/10/21 13:32 06/10/21 13:36 06/10/21 14:11 Glucose (Fingerstick) 284 mg/dL (70-99) H White Blood Count 5.1 x10^3/uL (4.0-11.0) Red Blood Count 3.05 x10^6/uL (3.50-5.40) L Hemoglobin 8.2 g/dL (12.0-15.5) L Hematocrit 25.2 % (36.0-47.0) L Mean Corpuscular Volume 83 fL (79-100) Mean Corpuscular Hemoglobin 27 pg (25-35) Mean Corpuscular Hemoglobin Concent 32 g/dL (31-37) Red Cell Distribution Width 15.6 % (11.5-14.5) H Platelet Count 227 x10^3/uL (140-400) Neutrophils (%) (Auto) 70 % (31-73) Lymphocytes (%) (Auto) 16 % (24-48) L Monocytes (%) (Auto) 11 % (0-9) H Eosinophils (%) (Auto) 2 % (0-3) Basophils (%) (Auto) 1 % (0-3) Neutrophils # (Auto) 3.6 x10^3uL (1.8-7.7) Lymphocytes # (Auto) 0.8 x10^3/uL (1.0-4.8) L Monocytes # (Auto) 0.6 x10^3/uL (0.0-1.1) Eosinophils # (Auto) 0.1 x10^3/uL (0.0-0.7) Basophils # (Auto) 0.0 x10^3/uL (0.0-0.2) Sodium Level 133 mmol/L (136-145) L Potassium Level 3.7 mmol/L (3.5-5.1) Chloride Level 94 mmol/L (98-107) L Carbon Dioxide Level 28 mmol/L (21-32) Anion Gap 11 (6-14) Blood Urea Nitrogen 31 mg/dL (7-20) H Creatinine 1.8 mg/dL (0.6-1.0) H Estimated GFR (Cockcroft-Gault) 27.8 BUN/Creatinine Ratio 17 (6-20) Glucose Level 285 mg/dL (70-99) H Calcium Level 9.1 mg/dL (8.5-10.1) Magnesium Level 1.8 mg/dL (1.8-2.4) Total Bilirubin 0.2 mg/dL (0.2-1.0) Aspartate Amino Transferase (AST) 19 U/L (15-37) Alanine Aminotransferase (ALT) 17 U/L (14-59) Alkaline Phosphatase 91 U/L (46-116) Creatine Kinase 70 U/L (26-192) Troponin I High Sensitivity 62 ng/L (4-50) H LC-Ihl-N-Type Natriuretic Peptide 1044 pg/mL (0-124) H Total Protein 6.9 g/dL (6.4-8.2) Albumin 3.2 g/dL (3.4-5.0) L Albumin/Globulin Ratio 0.9 (1.0-1.7) L Lipase 73 U/L (73-393) Urine Collection Type Unknown Urine Color Yellow Urine Clarity Cloudy Urine pH 6.0 Urine Specific [place] 1.025 Urine Protein Neg (NEG-TRACE) Urine Glucose (UA) 250 mg/dL (NEG) Urine Ketones (Stick) Neg mg/dL (NEG) Urine Blood Large (NEG) Urine Nitrite Neg (NEG) Urine Bilirubin Neg (NEG) Urine Urobilinogen Dipstick 0.2 mg/dL (0.2 mg/dL) Urine Leukocyte Esterase Small (NEG) Urine RBC 6-10 /HPF (0-2) Urine WBC 5-10 /HPF (0-4) Urine Squamous Epithelial Cells Many /LPF Urine Amorphous Sediment Present /HPF Urine Bacteria Mod /HPF (0-FEW) Urine Hyaline Casts Few /HPF Urine Opiates Screen Neg (NEG) Urine Methadone Screen Neg (NEG) Urine Barbiturates Neg (NEG) Urine Phencyclidine Screen Neg (NEG) Urine Amphetamine/Methamphetamine Neg (NEG) Urine Benzodiazepines Screen Neg (NEG) Urine Cocaine Screen Neg (NEG) Urine Cannabinoids Screen Neg (NEG) Urine Ethyl Alcohol Neg (NEG) Vital Signs: Vital Signs Date Time Temp Pulse Resp B/P (MAP) Pulse Ox O2 Delivery O2 Flow Rate FiO2 06/10/21 14:05 80 16 138/56 (83) 97 06/10/21 13:34 98.3 Room Air (KEVIN DÍAZ DO) EKG: EKG: Sinus rhythm 73 bpm, no axis deviation, first-degree AV block with MI interval 204, T wave inversion aVL, no ST elevation or ST depression, no active chest pain (KEVIN DÍAZ DO) Radiology/Procedures: Radiology/Procedures: IMAGING REPORT Signed PATIENT: EARLENE MONZON I ACCOUNT: [id number] : 1950 LOCATION: ER AGE: 70 SEX: F EXAM STATUS: REG ER ORD. PHYSICIAN: KEVIN DÍAZ DO REASON: seizure?syncope? PROCEDURE: CT HEAD WO CONTRAST Site ID: [id number] EXAMINATION: CT HEAD/BRAIN WO. TECHNIQUE: Noncontrast axial images of the brain were obtained with coronal and sagittal reconstructions. One or more of the following radiation dose reduction techniques was used: automated exposure control, adjustment of mA and/or KV according to patient size, and/or utilization of iterative reconstruction technique. HISTORY: 70 years Female Reason: seizure?syncope. Altered mental status FINDINGS: There is no intracranial hemorrhage, edema or mass effect. The brain parenchyma demonstrates periventricular and deep white matter hypodensities compatible with chronic microvascular ischemic changes. Size of the ventricles is appropriate. The visualized portions of the orbits and paranasal sinuses appear unremarkable. IMPRESSION: No acute process. Electronically signed by: Simon Barber MD (06/10/2021 2:29 PM) [id number] DICTATED AND SIGNED BY: SIMON BARBER MD DATE: 06/10/21 1427 CC: WALT NOLASCO; KEVIN DÍAZ DO ~MTH0 0 IMAGING REPORT Signed PATIENT: EARLENE MONZON I ACCOUNT: [id number] : 1950 LOCATION: ER AGE: 70 SEX: F EXAM STATUS: REG ER ORD. PHYSICIAN: KEVIN DÍAZ DO REASON: seizure? PROCEDURE: PORTABLE CHEST 1V XR CHEST 1V History: Reason: seizure / Spl. Instructions: / History: Comparison: January 18, 2021 Findings: No consolidation or pleural effusion. Normal heart size. No pneumothorax. Glenohumeral DJD. Impression: 1. No acute cardiopulmonary process. Electronically signed by: Ricky Ding DO (06/10/2021 2:43 PM) [id number] DICTATED AND SIGNED BY: RICKY DING DO DATE: 06/10/21 1442 CC: WALT NOLASCO; KEVIN DÍAZ DO ~MTH0 0 IMAGING REPORT Signed PATIENT: EARLENE MONZON I ACCOUNT: [id number] : 1950 LOCATION: ER AGE: 70 SEX: F EXAM STATUS: REG ER ORD. PHYSICIAN: KEVIN DÍAZ DO REASON: lle swelling >> RLE PROCEDURE: VENOUS LOWER EXT BILATERAL Bilateral Lower Extremity Venous Doppler Ultrasound History: Reason: lle swelling >> RLE / Spl. Instructions: / History: Comparison: None Procedure: Color flow, duplex, spectral analysis and 2D images are obtained with and without compression in the area of the common femoral vein, superficial femoral vein - femoral vein junction, main femoral vein (superficial femoral vein) and popliteal vein. Veins of the proximal calf are also imaged. Findings: There is nonocclusive thrombus seen in the left lower extremity from the common femoral vein through the SFV and popliteal vein as well as clot seen in the peroneal and greater saphenous vein. There is normal duplex flow, color flow and compressibility of all remaining visualized vein segments. No evidence of deep venous thrombus is present on the right. Impression: 1. Extensive deep venous thrombosis in the left lower extremity. 2. Clot in the greater saphenous vein on the left. Electronically signed by: Reena Conti III, MD (06/10/2021 4:21 PM) [facility] DICTATED AND SIGNED BY: REENA CONTI III, MD DATE: 06/10/211617 CC: WALT NOLASCO; KEVIN DÍAZ DO ~MTH0 0 (KEVIN DÍAZ DO) Heart Score: C/O Chest Pain: No Risk Factors: Risk Factors: DM, Current or recent (<one month) smoker, HTN, HLP, family history of CAD, obesity. Risk Scores: Score 0 - 3: 2.5% MACE over next 6 weeks - Discharge Home Score 4 - 6: 20.3% MACE over next 6 weeks - Admit for Clinical Observation Score 7 - 10: 72.7% MACE over next 6 weeks - Early Invasive Strategies (KEVIN DÍAZ DO) Course & Med Decision Making: Course & Med Decision Making Pertinent Labs and Imaging studies reviewed. (See chart for details) Concern for seizure-like activity versus near syncopal event although patient had 2 episodes of orthostatic hypotension when transferring to CT and bedside commode. Labs concerning for NSTEMI, troponin downtrending. Urinalysis concerning for persistent urinary tract infection. Patient also with left lower extremity DVT in the setting of renal disease. Will admit to medicine for further medical management. (KEVIN DÍAZ DO) Dragon Disclaimer: Dragon Disclaimer: This electronic medical record was generated, in whole or in part, using a voice recognition dictation system. (KEVIN DÍAZ DO) Departure Departure: Impression: Primary Impression: Orthostatic hypotension Additional Impressions: Deep vein thrombosis, lower left extremity UTI (urinary tract infection) CKD (chronic kidney disease) NSTEMI (non-ST elevated myocardial infarction) Normocytic anemia Disposition: ADMITTED INPATIENT Admitting Physician: Jarod Nobles (KEVIN DÍAZ DO) Condition: CRITICAL Referrals: WALT NOLASCO (PCP) Attending Signature Attending Signature I have participated in the care of this patient and I have reviewed and agree with all pertinent clinical information above including history, exam, and recommendations. (JUDY GARCIA MD) Attending Signature I have participated in the care of this patient and I have reviewed and agree with all pertinent clinical information above including history, exam, and recommendations. (KEVIN DÍAZ DO) KEVIN DÍAZ DO Jun 10, 2021 17:04 JUDY GARCIA MD Jun 11, 2021 08:14
[2021-06-10] MEDS ORDERED: IV NORMAL SALINE 50ML 50 ML ONE (17:16)
[2021-06-10] MEDS ORDERED: PIPERACILLIN/TAZOBACTAM 4.5 GM VIAL IV ONE (17:17)
[2021-06-10] MEDS ORDERED: HEPARIN for IV BOLUS 10,000 UNIT/10 ML VIAL. IV PRN ×3 (17:45)
[2021-06-10] MEDS ORDERED: HEPARIN 25,000UTS/250ML PREMIX 250 ML IV PRN (17:45)
[2021-06-10 19:20] VITALS: BP 156/57
--- NOTE | 2021-06-10 19:20 | NUR ---
ADMISSION: The patient, EARLENE MONZON I, 70 y/o, F admitted by DAVID NOBLES MD, was given written information regarding hospital policies, unit procedures and contact persons. Pt arrived to ICU bed 4 via gurney, accompanied by [facility] and nursing sup. Pt here for DVT, UTI, and NSTEMI. Heparin gtt running at 11.85 mls/hr. Pt placed on telemetry, showing SR with rate in the 60's. Pt denies any current pain but reports she is unable to bear weight on LLE, which just started today. LLE is swollen 2-3+ and tender to touch. PMH and home meds reviewed per MD records. Dr. Nobles paged and call back received, notified of pt arrival and status. New orders received. Discussed POC with pt, call light in reach. Currently sitting up in bed, drinking water and eating cereal bar. Valuables were checked and logged. Left in room with patient.
[2021-06-10 20:01] VITALS: BP 130/58
[2021-06-10] MEDS ORDERED: DEXTROSE 50% 25 GM / 50ML DISP.SYRIN. IV PRN (20:30)
[2021-06-10] MEDS ORDERED: ACETAMINOPHEN 325 MG TABLET PO PRN (20:45)
[2021-06-10] MEDS ORDERED: MAGNESIUM HYDROXIDE 2,400 MG/30 ML ORAL.SUSP. PO PRN (20:45)
[2021-06-10] MEDS ORDERED: MAGN400O7 PO (20:48)
[2021-06-10] MEDS ORDERED: DARB200V SQ (20:48)
[2021-06-10] MEDS ORDERED: INSU100I17 SQ ×2 (20:48)
[2021-06-10] MEDS ORDERED: BUPR150T8 PO (20:48)
[2021-06-10] MEDS ORDERED: MECL12.582 PO (20:48)
[2021-06-10 21:00] VITALS: BP 124/58
[2021-06-10] MEDS ORDERED: ONDANSETRON ODT 4 MG TAB.RAPDIS PO PRN (21:00)
[2021-06-10] MEDS ORDERED: WARFARIN 10 MG TABLET. PO ONE (21:00)
[2021-06-10] MEDS: INSULIN GLARGINE SYRINGE. SQ SCH ×2 (21:00→21:47)
[2021-06-10] MEDS: MECLIZINE 12.5 MG TABLET. PO SCH (21:47)
[2021-06-10] MEDS: ATORVASTATIN CALCIUM 10 MG TABLET. PO SCH (21:47)
[2021-06-10] MEDS: METOCLOPRAMIDE 10 MG TABLET PO SCH (21:48)
[2021-06-10 22:00] VITALS: BP 109/47
[2021-06-10] MEDS ORDERED: PIPERACILLIN/TAZOBACTAM 3.375 GM in IV NORMAL SALINE 50ML 50 ML IV SCH (22:00)
[2021-06-10 23:00] VITALS: BP 133/63
[2021-06-11] VITALS (10 sets, daily range): BP systolic 111–132; BP diastolic 46–101
[2021-06-11] MEDS: PIPERACILLIN/TAZOBACTAM 2.25 GM in IV NORMAL SALINE 50ML 50 ML IV SCH ×3 (00:10→11:56)
[2021-06-11 07:43] LABS: BASO % 1 % (0-3); EOS # 0.1 x10^3/uL (0.0-0.7); EOS % 2 % (0-3); HEMATOCRIT 22.8 % (36.0-47.0); HEMOGLOBIN 7.4 g/dL (12.0-15.5); LYMPH # 0.8 x10^3/uL (1.0-4.8); LYMPH % 22 % (24-48); MEAN CORPUSCULAR HEMOGLOBIN 27 pg (25-35); MEAN CORPUSCULAR HGB CONC 33 g/dL (31-37); MEAN CORPUSCULAR VOLUME 83 fL (79-100); MONO # 0.4 x10^3/uL (0.0-1.1); MONO % 11 % (0-9); NEUT # 2.3 x10^3uL (1.8-7.7); NEUT % 65 % (31-73); PLATELET COUNT 191 x10^3/uL (140-400); RED BLOOD COUNT 2.75 x10^6/uL (3.50-5.40); RED CELL DISTRIBUTION WIDTH 15.7 % (11.5-14.5); WHITE BLOOD COUNT 3.6 x10^3/uL (4.0-11.0)
[2021-06-11 07:56] LABS: ALBUMIN 2.8 g/dL (3.4-5.0); ALBUMIN/GLOBULIN RATIO 0.8 (1.0-1.7); CALCIUM 8.5 mg/dL (8.5-10.1); CREATININE 1.4 mg/dL (0.6-1.0); GFR 37.2; POTASSIUM 4.1 mmol/L (3.5-5.1); TOTAL BILIRUBIN 0.2 mg/dL (0.2-1.0); TOTAL PROTEIN 6.5 g/dL (6.4-8.2)
[2021-06-11] MEDS: METOCLOPRAMIDE 10 MG TABLET PO SCH ×4 (08:21→20:07)
[2021-06-11] MEDS: MECLIZINE 12.5 MG TABLET. PO SCH ×4 (08:21→20:07)
[2021-06-11] MEDS: CITALOPRAM 20 MG TABLET. PO SCH (08:21)
[2021-06-11] MEDS: buPROPion SR 150 MG TABLET.SA PO SCH (08:21)
[2021-06-11] MEDS: CALCIUM CARB/VIT D3 500/200 TABLET PO SCH (08:22)
[2021-06-11] MEDS: INSULIN LISPRO 300 UNITS/3 ML VIAL. SQ SCH ×4 (08:23→17:00)
[2021-06-11] MEDS: INSULIN GLARGINE SYRINGE. SQ SCH ×2 (11:57→22:08)
--- NOTE | 2021-06-11 15:19 | HP ---
DATE OF SERVICE: 06/11/2021 ADMIT DATE: 06/10/2021 HISTORY OF PRESENT ILLNESS: The patient is a 70-year-old female patient, a resident at [facility] [place], who presented to the Emergency Room with concern for seizure-like activity versus syncope. [facility] reports the patient had a seizure that lasted approximately 2 minutes. Glucose was within normal limits. Medications were reviewed and the patient was not on any anticoagulant. The patient currently was on Bactrim for UTI. She was extensively investigated in the Emergency Room, has had lab work as well as imaging studies. Her lab work showed that her kidney function was abnormal. Her creatinine was 1.8. Her serum creatinine on 01/21/2021 was 0.9 mg/dL, indicating that she has acute kidney injury, although her creatinine fluctuates up and down over the years. However, her white cell count was normal. She has normochromic normocytic anemia. Her prothrombin time and INR were within normal limits. Urinalysis showed that there are 5-10 wbc's, 6-10 rbc's, small amount of leukocyte esterase and toxic screen was negative. Her serology was positive for coronavirus by PCR, although she has been vaccinated and she was due to get her booster dose at the end of this week. She did have a chest x-ray that was basically unremarkable, with no acute cardiopulmonary process. Her CT scan of the head was unremarkable. However, clinical exam showed that her left lower extremity is markedly swollen compared to the right and had a venous Doppler ultrasound, which showed extensive deep venous thrombosis in her left lower extremity, clot in the greater saphenous vein on the left, for which she was started on a heparin drip and was given also 10 mg of Coumadin and was started on Zosyn 2.25 grams IV every 8 hours. PAST MEDICAL HISTORY: Significant for hypertension, hyperlipidemia, recurrent syncopal episode, anemia, osteoarthritis, osteoporosis, type 2 diabetes mellitus, chronic kidney disease and blindness. PAST SURGICAL HISTORY: Significant for right total hip arthroplasty, closed reduction and internal fixation of right tibia and fibula fracture. FAMILY HISTORY: Noncontributory. SOCIAL HISTORY: She is ; however, she lives in [facility]. She does not smoke, drink alcohol or use recreational drugs. REVIEW OF SYSTEMS: As per history of present illness. PHYSICAL EXAMINATION: GENERAL: On arrival to the Emergency Room, she looked pale, not jaundiced or cyanosed, no lymphadenopathy, no thyromegaly, no jugular venous distention, but left lower extremity is more swollen than the right lower extremity. VITAL SIGNS: On arrival, her heart rate was 74, blood pressure 125/37, temperature was 98.3, respiratory rate was 16 and oxygen saturation was 97%. HEAD, EYES, EARS, NOSE, AND THROAT: Normocephalic, atraumatic. NECK: Supple. HEART: Normal first and second heart sounds. No gallop, rub or murmur. CHEST: Showed central trachea, equal bilateral expansion, air entry, vesicular breath sounds. No crepitation or rhonchi. ABDOMEN: Distended, soft, nontender. NEUROLOGIC: She is blind in her eyes with all other cranial nerves intact. She is also hard of hearing. She moves upper extremities. She is mostly bedbound, chair bound. LABORATORY DATA: Showed a white cell count 5100, hemoglobin 8.2, hematocrit 25.2, MCV 83 and platelet count 227,000 with normal manual differential. Her prothrombin time was 11.9, INR 1.1, APTT was 55. Her chemistry on admission showed a serum sodium 133, potassium 3.7, chloride 94, bicarbonate 28, anion gap of 11, BUN 31, creatinine 1.8. Estimated GFR was 28 mL per minute. Her glucose was 285, calcium was 9.1, magnesium was 1.8. Total bilirubin, AST, ALT, alkaline phosphatase were normal. Her CK was 70. Troponin I high sensitivity was 62. Beta natriuretic peptide was 1044. Total protein 6.9, albumin 3.2 and serum lipase was 73. Urinalysis showed the urine was yellow, cloudy with a pH of 6, specific gravity 1.025 and urine was negative for protein. There was large amount of glucose, negative for ketones, small amount of blood, negative for nitrite, small amount of leukocyte esterase, 6-10 rbc's, 5-10 wbc's and moderate amount of bacteria. Her toxic screen was negative. ASSESSMENT AND PLAN: In summary, this is a 70-year-old female patient, a resident at [facility] who was admitted with seizure-like activity; however, CT scan was unremarkable and she was actually on treatment for urinary tract infection with Bactrim and was found to have markedly swollen left lower extremity compared to the right and venous Doppler ultrasound showed that she has deep vein thrombosis for which she was started on heparin and also Coumadin. She was continued on all her other medication. We will obviously monitor her APTT and also PT/INR; or if her kidney function improves, we might switch her to Eliquis and decide the further management accordingly. JUS/LES/ZOE DR: Katlyn TID: [id number]
--- NOTE | 2021-06-11 17:46 | NUR ---
PT IS ALMOST FINISHED WITH IV INFUSION. PER PHARMACY, IF HEPARIN INFUSION IS COMPLETED BEFORE ELIQUIS IS DUE, IT IS OKAY TO STOP HEPARIN AND ADMINISTER ELIQUIS WHEN DUE. PT TRANSFERRED FROM ICU 4 TO ROOM 111. HEAD TO TOE ASSESSMENT COMPLETED. PT ATE ALL OF DINNER. PT DOES NOT C/O PAIN. PT IS CONFUSED AND THINKS SHE IS IN A PARKING GARAGE.
[2021-06-11] MEDS: ATORVASTATIN CALCIUM 10 MG TABLET. PO SCH (20:07)
[2021-06-11] MEDS: APIXABAN 5 MG TABLET. PO SCH (20:07)
[2021-06-12 00:12] VITALS: BP 127/65
--- NOTE | 2021-06-12 01:51 | NUR ---
assumed care of patient from DESHAWN Sotomayor at 0150. Patient in bed, asleep, at this time.
[2021-06-12 05:00] VITALS: BP 162/71
[2021-06-12] MEDS: INSULIN LISPRO 300 UNITS/3 ML VIAL. SQ SCH ×4 (08:34→17:00)
[2021-06-12] MEDS: INSULIN GLARGINE SYRINGE. SQ SCH (08:35)
[2021-06-12] MEDS: METOCLOPRAMIDE 10 MG TABLET PO SCH ×2 (08:36→11:40)
[2021-06-12] MEDS: MECLIZINE 12.5 MG TABLET. PO SCH ×2 (08:36→11:40)
[2021-06-12] MEDS: buPROPion SR 150 MG TABLET.SA PO SCH (08:36)
[2021-06-12] MEDS: CALCIUM CARB/VIT D3 500/200 TABLET PO SCH (08:36)
[2021-06-12] MEDS: CITALOPRAM 20 MG TABLET. PO SCH (08:36)
[2021-06-12] MEDS: APIXABAN 5 MG TABLET. PO SCH (08:36)
[2021-06-12 10:39] VITALS: BP 105/60
[2021-06-12 14:58] VITALS: BP 122/63
[2021-06-12] MEDS ORDERED: APIX5TAB5 PO (15:35)
[2021-06-12] MEDS ORDERED: APIX5TAB3 PO (15:35)
--- NOTE | 2021-06-12 15:38 | DISCH ---
DISCHARGE ORDERS DISCHARGE DATE: Jun 12, 2021 FINAL DIAGNOSIS LLE DVT CONDITION AT DISCHARGE: Stable Code Status: Full SNF STAY <30 DAYS: No POST DISCHARGE ORDERS: ACTIVITY ORDERS: Activity as tolerated WEIGHT BEARING STATUS: Full weight bearing DIET AFTER DISCHARGE: ADA WOUND/INCISION CARE: Keep wound/cast CDI, Change dressing, Reinforce dressing PRN TREATMENT/EQUIPMENT ORDERS: ADAPTIVE EQUIPMENT NEEDED: None DISCHARGE MEDICATIONS: Home Meds Active Scripts Apixaban (Eliquis) 5 Mg Tab.ds.pk, 10 MG PO BID for dvt for 7 Days, #28 PKG Prov:LOBO CHRISTENSEN MD 06/12/21 Apixaban (ELIQUIS) 5 Mg Tablet, 5 MG PO BID for dvt for 30 Days, #60 TAB 5 Refills Prov:LOBO CHRISTENSEN MD 06/12/21 Reported Medications Bupropion Hcl (WELLBUTRIN SR) 150 Mg Tablet.er, 150 MG PO DAILY for MDD, TAB.SR 06/10/21 Insulin Aspart (NOVOLOG FLEXPEN) 100 Unit/1 Ml Insuln.pen, 0-29 UNIT SQ TIDWMEALS for SLIDING SCALE INSULIN, SYR 06/10/21 Insulin Aspart (NOVOLOG FLEXPEN) 100 Unit/1 Ml Insuln.pen, 10 UNIT SQ DAILYWBKFT for DM, SYR 06/10/21 Magnesium Hydroxide (MILK OF MAGNESIA) 400 Mg/5 Ml Oral.susp, 2400 MG PO PRN DAILY PRN for CONSTIPATION, LIQUID 06/10/21 Meclizine Hcl (MECLIZINE HCL) 12.5 Mg Tablet, 12.5 MG PO QID for DIZZINESS/NAUSEA, TAB 06/10/21 Darbepoetin Jesse In Polysorbat (ARANESP VIAL) 200 Mcg/1 Ml Vial, 200 MCG SQ QTU for TO TREAT ANEMIA, EACH 0 Refills 06/10/21 Insulin Glargine,Hum.rec.anlog (LANTUS SOLOSTAR) 100 Unit/1 Ml Insuln.pen, 8 UNIT SQ QHS for DM, ML 03/26/21 Insulin Glargine,Hum.rec.anlog (LANTUS SOLOSTAR) 100 Unit/1 Ml Insuln.pen, 15 UNIT SQ DAILY for DM, ML 03/26/21 Bisacodyl (BISACODYL) 5 Mg Tablet.dr, 10 MG PO PRN DAILY PRN for CONSTIPATION, TAB 03/26/21 Acetaminophen (TYLENOL) 325 Mg Tablet, 2 TAB PO PRN Q6HRS PRN for PAIN, TAB 03/26/21 Calcium Citrate/Vitamin D3 (Calcium Citrate +Vit D3 Tablet) 1 Each Tablet, 1 TAB PO DAILY for Bone Health LAST DOSE GIVEN: DATE: TIME: NEXT DOSE DUE: DATE: TIME: 01/18/21 Metoclopramide Hcl (REGLAN) 10 Mg Tablet, 10 MG PO TIDACHC for N/V LAST DOSE GIVEN: DATE: TIME: NEXT DOSE DUE: DATE: TIME: 08/08/20 Citalopram Hydrobromide (CELEXA) 10 Mg Tablet, 2 TAB PO DAILY for DEPRESSION LAST DOSE GIVEN: DATE: TIME: NEXT DOSE DUE: DATE: TIME: 08/08/20 Ondansetron Hcl (ONDANSETRON HCL) 4 Mg Tablet, 4 MG PO PRN Q6HRS PRN for NAUSEA/VOMITING LAST DOSE GIVEN: DATE: TIME: NEXT DOSE DUE: DATE: TIME: 06/24/20 Lovastatin (LOVASTATIN) 20 Mg Tablet, 20 MG PO HS for high cholesterol LAST DOSE GIVEN: DATE: TIME: NEXT DOSE DUE: DATE: TIME: 06/24/20 Discontinued Reported Medications Spironolactone (ALDACTONE) 50 Mg Tablet, 1 TAB PO DAILY for DIURETIC, TAB 03/26/21 LOBO CHRISTENSEN MD Jun 12, 2021 15:38
--- NOTE | 2021-06-12 17:41 | NUR ---
PATIENT IS DISCHARGED BACK TO [facility]. REPORT GIVEN TO STAFF NURSE, PATIENT LEFT UNIT VIA EMS ACCOMP BY AMBULANCE STAFF.
--- NOTE | 2021-06-12 20:36 | DS ---
DATE OF DISCHARGE: 06/12/2021 HOSPITAL COURSE: The patient is a 70-year-old female patient, a resident at [facility] [place], who was admitted on 06/10/2021 through the Emergency Room Department with a concern for seizure-like activity versus syncope and [facility] reports had a seizure that lasted approximately 2 hours and 2 minutes. Her glucose was within normal limits. The patient is known to have recurrent syncopal episode because of severe diabetic autonomic neuropathy. Her medications were reviewed with her and she was not on any anticoagulant. The patient was on Bactrim for UTI. She was extensively investigated in the Emergency Room. Has had lab work as well as imaging studies. Her lab work showed that kidney function was abnormal. Her creatinine was 1.8 and her serum creatinine normally is 1.9. Other than that, her white cell count, hemoglobin, hematocrit and platelets were all normal. Her left lower extremity was noted to be extremely swollen, so she had had a venous Doppler ultrasound. It showed extensive deep venous thrombosis in her left lower extremity. The patient was initially started on heparin; however, in discussion with the pharmacist, it was felt that this is safe to switch her to apixaban and she was started on 10 mg twice a day for 7 days. The patient remained stable throughout her stay in the hospital, she had no syncopal episode. On questioning her today, she denied any complaint. PHYSICAL EXAMINATION: GENERAL: When I examined her, she was pale, not jaundiced, cyanosed or thyromegaly. No jugular venous distention. No lower limb edema. Her left lower extremity is more swollen than the right. VITAL SIGNS: Her heart rate was 69, blood pressure was 122/63, temperature was 97.9, respiratory rate was 18 and oxygen saturation was 97% on room air. HEAD, EYES, EARS, NOSE, AND THROAT: Normocephalic, atraumatic. NECK: Supple. HEART: Showed normal first and second heart sounds. No gallop, rub or murmur. CHEST: Clear to auscultation. No crepitation or rhonchi. ABDOMEN: Scaphoid, soft, nontender. NEUROLOGIC: She was blind in both eyes. Otherwise, all her cranial nerves intact. She moves extremities without difficulty, although she is mostly bedbound, chair bound. LABORATORY DATA: Her labwork today showed a white cell count of 3600, hemoglobin 7.4, hematocrit 22.8, MCV 83 and platelet count of 191,000, with a manual differential showed 65% polymorphs, 22% lymphocytes and 11% monocytes. Her chemistry showed a serum sodium 134, potassium 4.1, chloride 98, bicarbonate 27, anion gap of 9, BUN 22, creatinine 1.4. Estimated GFR was 37 mL per minute. Her glucose was 179, calcium was 8.5. Total bilirubin, AST, ALT, alkaline phosphatase were normal. Total protein 6.5, albumin was 2.8. Her urinalysis was essentially unremarkable and tox screen was negative. Her coronavirus initially was positive. Today, this was repeated and was negative. DISCHARGE MEDICATIONS: She will be discharged back to [facility] in [place] on apixaban 10 mg twice a day for 7 days and then 5 mg twice a day for at least 3-6 months. Se would continue on acetaminophen 650 mg every 6 hours, bisacodyl 10 mg daily p.r.n. Wellbutrin-SR 150 mg daily, calcium citrate and vitamin D one tablet once a day, citalopram hydrobromide 20 mg once a day, darbepoetin miguel 200 mcg subcutaneously every Wednesday. She is on NovoLog insulin 10 units subcutaneously daily with breakfast. She is on 15 units daily with dinner and 6 units at bedtime, lovastatin 20 mg at bedtime, magnesium hydroxide for milk of magnesia 30 mL p.o. daily p.r.n. for constipation, meclizine 12.5 mg 4 times a day, metoclopramide 10 mg 3 times a day and ondansetron 4 mg every 6 hours. FINAL DISCHARGE DIAGNOSES: 1. Syncopal episode. The patient is known to have severe autonomic neuropathy. 2. Left lower extremity deep venous thrombosis. 3. Anemia. 4. Hypertension. 5. Hyperlipidemia. 6. Osteoarthritis. 7. Osteoporosis. 8. Type 2 diabetes mellitus. 9. Chronic kidney disease. 10. Blindness. KIRT DR: Katlyn TID: [id number]
--- NOTE | 2021-06-16 10:04 | PN ---
DATE: 06/11/2021 SUBJECTIVE: The patient is resting slightly propped up in bed, in no apparent respiratory distress. She is awake and alert. On questioning her, denied any complaint. In particular, she denied any chest pain, shortness of breath, cough, phlegm, or hemoptysis. PHYSICAL EXAMINATION: GENERAL: When I examined her, she looked well and was clearly in no apparent respiratory distress. No pallor, jaundice, cyanosis, or thyromegaly. No jugular venous distention. No limb edema. VITAL SIGNS: Her heart rate was 80, blood pressure is 138/56, temperature was 98.3, respiratory rate was 16 and oxygen saturation was 97%. HEAD, EYES, EARS, NOSE, AND THROAT: Normocephalic, atraumatic. NECK: Supple. HEART: Showed normal first and second heart sounds. No gallop or murmur. CHEST: Clear to auscultation, no crepitation or rhonchi. ABDOMEN: Distended, soft, nontender. No guarding or rigidity. No organomegaly. All hernial orifice intact. Bowel sounds normal. NEUROLOGIC: She was blind, hard of hearing, but all other cranial nerves intact. She moves extremities without difficulty. Her left lower extremity is more swollen than ____ and she has left lower extremity deep vein thrombosis. ASSESSMENT: 1. Left lower extremity deep venous thrombosis. 2. Seizure-like activity versus syncopal episode. 3. She is coronavirus positive that is asymptomatic. She has no fever. Her white cell count is normal and her oxygen saturation was 98% on room air. She was vaccinated. She has multiple other medical problems including hypertension, anemia, and chronic kidney disease. DICTATION ENDS ABRUPTLY. KALI/TEQUILA DR: Katlyn TID: [id number]
[2021-06-19] MEDS ORDERED: APIXABAN 5 MG TABLET. PO SCH (21:00)
== END 2021-06-12 17:35 | DRG 73 ==
LOC: ER 13:29 → ICU 17:39 → 1 SOUTH 06-11 15:43
PROVIDERS: ADMIT Hospitalist; ATTEND Hospitalist
DX: G90.8 Other disorders of autonomic nervous system (principal); N17.0 Acute kidney failure with tubular necrosis; U07.1 COVID-19; I82.402 Acute embolism and thrombosis of unspecified deep veins of left lower extremity; N39.0 Urinary tract infection, site not specified; E11.43 Type 2 diabetes mellitus with diabetic autonomic (poly)neuropathy; D64.9 Anemia, unspecified; E11.22 Type 2 diabetes mellitus with diabetic chronic kidney disease; E78.00 Pure hypercholesterolemia, unspecified; E78.5 Hyperlipidemia, unspecified; H54.7 Unspecified visual loss; I12.9 Hypertensive chronic kidney disease with stage 1 through stage 4 chronic kidney disease, or unspecified chronic kidney disease; I25.10 Atherosclerotic heart disease of native coronary artery without angina pectoris; I95.1 Orthostatic hypotension; M19.90 Unspecified osteoarthritis, unspecified site; M81.0 Age-related osteoporosis without current pathological fracture; N18.9 Chronic kidney disease, unspecified; Z96.641 Presence of right artificial hip joint; F32.A Depression, unspecified; F41.9 Anxiety disorder, unspecified; Z91.040 Latex allergy status
CPT/HCPCS: 36415; 70450; 71045; 80053; 80307; 81001; 82550; 82947; 83690; 83735; 83880; 84484; 85025; 85610; 85730; 87077; 87086; 87186; 87426; 93005; 93970; 96361; 96365; 96367; 96376; J1644; J1815; J2543; U0003; 99285-25; J7030

== ENCOUNTER 2021-06-30 16:20 | Emergency (ER) | payer OTHER ==
[~2021-06-30] VITALS: Ht 165.1 cm; Wt 73.9 kg
[~2021-06-30 16:20] MED LIST changes: +APIX5TAB3 PO; +APIX5TAB5 PO; +BUPR150T8 PO; +DARB200V SQ; +MAGN400O7 PO; +MECL12.582 PO
--- NOTE | 2021-06-30 16:30 | PHYS DOC ---
Past History Past Medical History: Anemia, Anxiety, Arthritis, CAD, Depression, Diabetes, High Cholesterol, Heart Disease, Hypertension, Pneumonia, Renal Disease, UTI, Other Additional Past Medical Histor: THROMBOCYTOPENIA, macular degeneration causing blindness (REX DUKE MD) Past Surgical History: Other Additional Past Surgical Histo: UNKNOWN SURGICAL HX (REX DUKE MD) Smoking: Non-smoker Alcohol Use: None Drug Use: None (REX DUKE MD) General Adult HPI: HPI: Patient is a 70-year-old female coming in from nursing facility via EMS for anemia. Per labs provided by patient's facility she had a hemoglobin of 6.8 this morning. Patient states she has had a history of anemia and has had to have a prior for transfusion 1 to 2 years ago. Patient denies any symptoms. Takes Eliquis. Denies any history of GI bleeding or any recent blood in her stools or dark tarry stools. (REX DUKE MD) Review of Systems: Review of Systems: All other systems within normal limits except for as noted in the HPI (REX DUKE MD) Allergies: Allergies: Allergies Coded Allergies Type Severity Reaction Last Updated Verified latex Allergy Mild skin irritation 08/07/20 Yes I S O L A T I O N *CONTACT* Allergy Unknown 04/04/21 Yes (REX DUKE MD) Physical Exam: PE: Constitutional: Well developed, well nourished, no acute distress, non-toxic ap pearance. [] HENT: Normocephalic, atraumatic, bilateral external ears normal, nose normal. [] Eyes: PERRLA, conjunctiva normal, no discharge. [] Neck: No rigidity, supple, no stridor. [] Cardiovascular: Regular rate and rhythm, brisk cap refill [] Lungs & Thorax: Non labored symmetric respirations, no tachypnea or respiratory distress [] Abdomen: Soft, nondistended. Skin: Warm, dry, no erythema, no rash. [] Back: Unremarkable Extremities: No deformities, range of motion grossly intact, no lower extremity edema [] Neurologic: Alert and oriented X 3, no focal deficits noted. [] Psychologic: Affect normal, judgement normal, mood normal. [] (REX DUKE MD) EKG: EKG: [] (REX DUKE MD) Radiology/Procedures: Radiology/Procedures: [] (REX DUKE MD) Heart Score: C/O Chest Pain: No Risk Factors: Risk Factors: DM, Current or recent (<one month) smoker, HTN, HLP, family history of CAD, obesity. Risk Scores: Score 0 - 3: 2.5% MACE over next 6 weeks - Discharge Home Score 4 - 6: 20.3% MACE over next 6 weeks - Admit for Clinical Observation Score 7 - 10: 72.7% MACE over next 6 weeks - Early Invasive Strategies (REX DUKE MD) Course & Med Decision Making: Course & Med Decision Making Pertinent Labs and Imaging studies reviewed. (See chart for details) Pending labs at shift change [] (REX DUKE MD) Course & Med Decision Making The patient's hemoglobin is 7.1 in the emergency room. She is asymptomatic. She does not require transfusion at this time. Her Hemoccult was negative. I will discharge the patient back to her care facility with instructions to repeat her H&H daily for the next couple of days. If her hemoglobin drops below 7, they need to schedule outpatient transfusion. She is stable for discharge at this time. (KIMBERLY ANGELES DO) Dragon Disclaimer: Dragon Disclaimer: This electronic medical record was generated, in whole or in part, using a voice recognition dictation system. (REX DUKE MD) Departure Departure: Impression: Primary Impression: Anemia Disposition: HOME / SELF CARE / HOMELESS Condition: STABLE Referrals: WALT NOLASCO (PCP) Patient Instructions: Anemia, Nonspecific-Brief Additional Instructions: Please repeat the patient's hemoglobin and hematocrit daily to track her anemia. If it drops below 7, schedule an outpatient blood transfusion at the hospital. Do not send the patient to the emergency room simply for transfusion as we are unable to accommodate such services in the ER at this time with the situation with COVID-19. REX DUKE MD Jun 30, 2021 16:30 KIMBERLY ANGELES DO Jun 30, 2021 19:03
[2021-06-30 17:48] VITALS: BP 144/70
[2021-06-30 17:57] LABS: BASO % 1 % (0-3); EOS # 0.1 x10^3/uL (0.0-0.7); EOS % 3 % (0-3); HEMOGLOBIN 7.1 g/dL (12.0-15.5); LYMPH % 24 % (24-48); MEAN CORPUSCULAR HEMOGLOBIN 27 pg (25-35); MEAN CORPUSCULAR HGB CONC 32 g/dL (31-37); MEAN CORPUSCULAR VOLUME 82 fL (79-100); MONO # 0.5 x10^3/uL (0.0-1.1); MONO % 13 % (0-9); NEUT # 2.4 x10^3uL (1.8-7.7); NEUT % 60 % (31-73); PLATELET COUNT 211 x10^3/uL (140-400); RED BLOOD COUNT 2.67 x10^6/uL (3.50-5.40); RED CELL DISTRIBUTION WIDTH 15.3 % (11.5-14.5); WHITE BLOOD COUNT 4.1 x10^3/uL (4.0-11.0)
[2021-06-30 18:15] LABS: CALCIUM 8.9 mg/dL (8.5-10.1); CREATININE 1.2 mg/dL (0.6-1.0); GFR 44.4; POTASSIUM 3.5 mmol/L (3.5-5.1)
[2021-06-30 18:20] LABS: ALBUMIN 3.2 g/dL (3.4-5.0); ALBUMIN/GLOBULIN RATIO 0.8 (1.0-1.7); TOTAL BILIRUBIN 0.2 mg/dL (0.2-1.0); TOTAL PROTEIN 7.2 g/dL (6.4-8.2)
[2021-06-30 18:59] LABS: FECAL OB PT NEGATIVE (NEG)
[2021-06-30 19:16] LABS: BILIRUBIN,URINE NEG (NEG); CLARITY,URINE CLEAR; COLOR,URINE YELLOW; GLUCOSE,URINE 100 mg/dL (NEG)
[2021-06-30 19:17] LABS: BACTERIA,URINE FEW /HPF (0-FEW); NITRITE,URINE NEG (NEG); RBC,URINE OCC /HPF (0-2); SQUAMOUS EPITHELIAL CELL,UR MOD /LPF; UROBILINOGEN,URINE 0.2 mg/dL (0.2 mg/dL); WBC,URINE 20-40 /HPF (0-4)
== END 2021-06-30 19:00 | disposition home or self-care (01) ==
LOC: ER 16:20
DX: D64.9 Anemia, unspecified (principal); M19.90 Unspecified osteoarthritis, unspecified site; I25.10 Atherosclerotic heart disease of native coronary artery without angina pectoris; F41.9 Anxiety disorder, unspecified; F32.9 Major depressive disorder, single episode, unspecified; E11.9 Type 2 diabetes mellitus without complications; E78.00 Pure hypercholesterolemia, unspecified; I11.9 Hypertensive heart disease without heart failure; Z87.440 Personal history of urinary (tract) infections; Z86.2 Personal history of diseases of the blood and blood-forming organs and certain disorders involving the immune mechanism; Z91.040 Latex allergy status; Z88.8 Allergy status to other drugs, medicaments and biological substances
CPT/HCPCS: 36415; 80053; 81001; 82274; 85025; 86900; 86901; 87086; 99283

== ENCOUNTER 2021-08-13 09:20 | Emergency (ER) | payer OTHER ==
[~2021-08-13] VITALS: Ht 162.6 cm; Wt 71.5 kg
[2021-08-13] MEDS ORDERED: INSULIN REGULAR 100 UNIT/ML 3ML VIAL. IV ONE (09:30)
[2021-08-13] MEDS ORDERED: IV NORMAL SALINE 1,000ML 1,000 ML IV ONE (09:30)
[2021-08-13] MEDS ORDERED: IPRATRPIUM/ALBUTEROL 0.5/2.5MG 3 ML NEBU. ONE (09:42)
--- NOTE | 2021-08-13 09:49 | PHYS DOC ---
Past History Past Medical History: Anemia, Anxiety, Arthritis, CAD, Depression, Diabetes, High Cholesterol, Heart Disease, Hypertension, Pneumonia, Renal Disease, UTI, Other Additional Past Medical Histor: THROMBOCYTOPENIA, macular degeneration causing blindness Past Surgical History: Other Additional Past Surgical Histo: UNKNOWN SURGICAL HX Smoking: Non-smoker Alcohol Use: None Drug Use: None General Adult EDM: Chief Complaint: ALTERED MENTAL STATUS HPI: HPI: 70-year-old female returns to the emergency room from her care facility with altered mental status. The patient was just discharged from the hospital yesterday. She was reported to have been fed breakfast this morning and then had a blood sugar of nearly 500 when EMS arrived. The facility states they did not give the patient her insulin. They wanted her to come back here because she is altered and not any better than when she came to the hospital a few days ago. The patient is not able to give me any useful history. She keeps saying please and crying but she does not tell me what is going on or what is bothering her. Review of Systems: Review of Systems: Unable to evaluate due to the patient's mental state Current Medications: Current Meds: Current Medications Medications (Trade) Dose Ordered Sig/April Start Time Stop Time Status Last Admin Dose Admin Albuterol/ Ipratropium (Duoneb) 3 ml STK-MED ONCE 08/13/21 09:42 08/13/21 09:42 DC Insulin Human Regular (HumuLIN R VIAL) 10 unit 1X ONCE 08/13/21 09:30 08/13/21 09:31 DC Sodium Chloride 1,000 ml @ 1,000 mls/hr 1X ONCE 08/13/21 09:30 08/13/21 10:29 08/13/21 09:30 1,000 MLS/HR Allergies: Allergies: Allergies Coded Allergies Type Severity Reaction Last Updated Verified latex Allergy Mild skin irritation 08/07/20 Yes I S O L A T I O N *CONTACT* Allergy Unknown 04/04/21 Yes Physical Exam: PE: Constitutional: Well developed, well nourished, no acute distress, non-toxic appearance. [] HENT: Normocephalic, atraumatic, bilateral external ears normal, oropharynx moist, no oral exudates, nose normal. [] Eyes: PERRLA, EOMI, conjunctiva normal, no discharge. [] Neck: Normal range of motion, no tenderness, supple, no stridor. [] Cardiovascular: Heart rate 79, regular rhythm, no murmur [] Lungs & Thorax: Bilateral breath sounds clear to auscultation [] Abdomen: Bowel sounds normal, soft, no tenderness, no masses, no pulsatile masses. [] Skin: Warm, dry, no erythema, no rash. [] Back: No tenderness, no CVA tenderness. [] Extremities: No tenderness, no cyanosis, no clubbing, ROM intact, no edema. [] Neurologic: Alert and repeating herself [] Psychologic: Affect tearful, mood depressed. [] Current Patient Data: Labs: Laboratory Tests Test 08/13/21 09:24 Glucose (Fingerstick) 329 mg/dL (70-99) H EKG: EKG: [] Radiology/Procedures: Radiology/Procedures: [] Impressions: CT HEAD/BRAIN WO Date: 08/13/2021 10:10 AM Clinical Indication: Reason: AMS / Spl. Instructions: / History: Comparison: 08/10/2021. Technique: 5 mm axial tomographic images were obtained of the head without contrast. These were viewed on brain and bone windows. One or more of the fol lowing dose reduction techniques were utilized: Automated exposure control (AEC), Adjustment of mA and/or kV according to patient size, Use of iterative reconstruction technique such as ASiR, CT scan done according to ALARA and image gently/image wisely Findings: Mild generalized cerebral and cerebellar volume loss. Similar mild nonspecific periventricular hypoattenuation, most commonly seen with chronic small vessel ischemic disease. Calcified atherosclerosis of the bilateral cavernous and paraclinoid internal carotid arteries and intracranial vertebral arteries. No intra- or extra-axial mass or fluid collection. No acute hemorrhage. The ventricles are normal in size, shape, and morphology. The castro-white matter junction is normal. The subarachnoid cisterns are patent. The visualized paranasal sinuses are normal. The visualized portions of the orbits and globes are normal. The mastoid air cells are clear. The table tender sludge topogram shows no lytic lesion or fracture. Impression: No acute intracranial process. Electronically signed by: Austin Hernandez DO (08/13/2021 10:30 AM) [id number] DICTATED AND SIGNED BY: AUSTIN HERNANDEZ DO DATE: 08/13/21 1026 CC: KIMBERLY ANGELES DO; WALT NOLASCO ~MTH0 0 CTA HEAD AND NECK W/WO CONTRAST History: Altered mental status. Technique: After bolus of intravenous contrast, volumetric CT data acquisition was acquired of the head and neck. Multiplanar reconstruction images to include MIP and 3-D reconstruction images are submitted. Any determination of stenosis is based on NASCET criteria. Comparison: CT head 08/13/2021. CT chest 03/26/2021. Findings: Angiogram neck: Aortic arch: Normal caliber three-vessel arch. Mild calcifications. Common carotid arteries: No stenosis, occlusion or dissection. Internal carotid arteries: Mild calcification of the origin without significant stenosis bilaterally. No occlusion or dissection. External carotid arteries: Patent Vertebral arteries: Heavy calcification of the origin of the bilateral vertebral arteries without perceptible lumen, however proximal segments of both vertebral arteries are normally enhancing. Angiogram head: ICA: No stenosis, occlusion or aneurysm. Calcified intracranial segments without significant stenosis. MCA: No stenosis, occlusion or aneurysm. KISHOR: No stenosis, occlusion or aneurysm. ALMOND BLANCHER HAND: No stenosis, occlusion or aneurysm. Basilar artery: No stenosis, occlusion or aneurysm. Distal vertebral arteries: No stenosis, occlusion or aneurysm. Other: Imaged lung apices are unremarkable. Redemonstrated large right thyroid mass measuring approximately 6 x 5 cm. No pathologic osseous lesions. Multilevel cervical spondylosis with prominent anterior cervical osteophytes. Impression: 1. High-grade stenoses at the origin of the bilateral vertebral arteries with heavy calcifications and no perceptible lumen, however suspected partial patency due to normal enhancement of the remainder of the vertebral arteries. This also could be due to retrograde flow. 2. No significant carotid stenosis. 3. No large vessel occlusion, aneurysm or significant stenosis in the intracranial arteries. 4. Redemonstrated large right thyroid lobe mass. Findings discussed with KIMBERLY ANGELES DO at 08/13/2021 4:22 PM. FOR INTERNAL CODING PURPOSES RESULT CODE: (C) Exposure: One or more of the following individualized dose reduction techniques were utilized for this examination: 1. Automated exposure control 2. Adjustment of the mA and/or kV according to patient size 3. Use of iterative reconstruction technique. Electronically signed by: Dakota Blackwood MD (08/13/2021 4:22 PM) [facility] DICTATED AND SIGNED BY: DAKOTA BLACKWOOD MD DATE: 08/13/21 1608 CC: KIMBERLY ANGELES DO; WALT NOLASCO ~MTH0 0 Heart Score: C/O Chest Pain: N/A Risk Factors: Risk Factors: DM, Current or recent (<one month) smoker, HTN, HLP, family history of CAD, obesity. Risk Scores: Score 0 - 3: 2.5% MACE over next 6 weeks - Discharge Home Score 4 - 6: 20.3% MACE over next 6 weeks - Admit for Clinical Observation Score 7 - 10: 72.7% MACE over next 6 weeks - Early Invasive Strategies Course & Med Decision Making: Course & Med Decision Making Pertinent Labs and Imaging studies reviewed. (See chart for details) Head CT is negative for acute findings. Nurse talked with the floor staff who took care of the patient when she was admitted for a few days and her mental status appears to be her baseline. She does have elevated blood sugar and we have given her fluids and insulin. Her hemoglobin is 9.4 but this is similar to previous. Her other labs are essentially normal except for elevated blood sugar. I went ahead and ordered a CT angiogram of the head and neck. Patient appears to have some significant narrowing of the vertebral arteries but adequate collaterals. See official read for more details. I still have a definitive reason for why she is acting the way she has. I wonder if it is b ehavioral. She has been more responsive to the nurse and followed commands as well as answered a couple of questions. She is stable for discharge at this time. [] Elton Disclaimer: Dragelio Disclaimer: This electronic medical record was generated, in whole or in part, using a voice recognition dictation system. Departure Departure: Impression: Primary Impression: Altered mental status Additional Impressions: Vertebral artery narrowing Hyperglycemia Disposition: HOME / SELF CARE / HOMELESS Condition: STABLE Referrals: WALT NOLASCO (PCP) Patient Instructions: Altered Mental Status KIMBERLY ANGELES DO Aug 13, 2021 09:49
[2021-08-13 09:54] LABS: BASO % 1 % (0-3); EOS # 0.1 x10^3/uL (0.0-0.7); EOS % 2 % (0-3); HEMATOCRIT 29.5 % (36.0-47.0); HEMOGLOBIN 9.2 g/dL (12.0-15.5); LYMPH # 0.6 x10^3/uL (1.0-4.8); LYMPH % 19 % (24-48); MEAN CORPUSCULAR HEMOGLOBIN 24 pg (25-35); MEAN CORPUSCULAR HGB CONC 31 g/dL (31-37); MEAN CORPUSCULAR VOLUME 76 fL (79-100); MONO # 0.4 x10^3/uL (0.0-1.1); MONO % 12 % (0-9); NEUT # 2.1 x10^3uL (1.8-7.7); NEUT % 66 % (31-73); PLATELET COUNT 202 x10^3/uL (140-400); RED BLOOD COUNT 3.89 x10^6/uL (3.50-5.40); WHITE BLOOD COUNT 3.2 x10^3/uL (4.0-11.0)
[2021-08-13 10:02] LABS: CALCIUM 9.1 mg/dL (8.5-10.1); CREATININE 1.3 mg/dL (0.6-1.0); GFR 40.5; POTASSIUM 3.4 mmol/L (3.5-5.1)
[2021-08-13 10:09] LABS: ALBUMIN/GLOBULIN RATIO 0.8 (1.0-1.7); TOTAL BILIRUBIN 0.3 mg/dL (0.2-1.0); TOTAL PROTEIN 6.9 g/dL (6.4-8.2)
--- NOTE | 2021-08-13 10:33 | RAD ---
CT HEAD/BRAIN WO Date: 08/13/2021 10:10 AM Clinical Indication: Reason: AMS / Spl. Instructions: / History: Comparison: 08/10/2021. Technique: 5 mm axial tomographic images were obtained of the head without contrast. These were view ed on brain and bone windows. One or more of the following dose reduction techniques were utilized: A utomated exposure control (AEC), Adjustment of mA and/or kV according to patient size, Use of iterati ve reconstruction technique such as ASiR, CT scan done according to ALARA and image gently/image peraza ly Findings: Mild generalized cerebral and cerebellar volume loss. Similar mild nonspecific periventricular hypoat tenuation, most commonly seen with chronic small vessel ischemic disease. Calcified atherosclerosis o f the bilateral cavernous and paraclinoid internal carotid arteries and intracranial vertebral arteri es. No intra- or extra-axial mass or fluid collection. No acute hemorrhage. The ventricles are normal in size, shape, and morphology. The castro-white matter junction is normal. The subarachnoid cisterns are patent. The visualized paranasal sinuses are normal. The visualized portions of the orbits and globes are no rmal. The mastoid air cells are clear. The brake mechanic topogram shows no lytic lesion or fracture. Impression: No acute intracranial process. Electronically signed by: Juni Hernandez DO (08/13/2021 10:30 AM) [id number]
[2021-08-13 13:47] LABS: BARBITURATES NEG (NEG); BENZODIAZEPINES NEG (NEG); CANNABINOIDS NEG (NEG); COCAINE NEG (NEG); METHADONE NEG (NEG); OPIATES NEG (NEG); PHENCYCLIDINE NEG (NEG)
[2021-08-13 13:48] LABS: AMPHETAMINE/METHAMPHETAMINE NEG (NEG)
[2021-08-13 13:57] LABS: BACTERIA,URINE FEW /HPF (0-FEW); CLARITY,URINE HAZY; COLOR,URINE YELLOW; GLUCOSE,URINE >=1000 mg/dL (NEG); NITRITE,URINE NEG (NEG); SQUAMOUS EPITHELIAL CELL,UR MOD /LPF; UROBILINOGEN,URINE 0.2 mg/dL (0.2 mg/dL); WBC,URINE 20-40 /HPF (0-4)
[2021-08-13] MEDS ORDERED: IOHEXOL 300 MG/ML 75 ML VIAL. IV ONE (14:30)
[2021-08-13] MEDS ORDERED: CONTRAST GIVEN. MC PRN (15:30)
[2021-08-13] MEDS ORDERED: IOHEXOL 350 MG/ML 100 ML VIAL. IV ONE (15:30)
[2021-08-13 16:15] VITALS: BP 167/71
--- NOTE | 2021-08-13 16:25 | RAD ---
CTA HEAD AND NECK W/WO CONTRAST History: Altered mental status. Technique: After bolus of intravenous contrast, volumetric CT data acquisition was acquired of the he ad and neck. Multiplanar reconstruction images to include MIP and 3-D reconstruction images are submi tted. Any determination of stenosis is based on NASCET criteria. Comparison: CT head 08/13/2021. CT chest 03/26/2021. Findings: Angiogram neck: Aortic arch: Normal caliber three-vessel arch. Mild calcifications. Common carotid arteries: No stenosis, occlusion or dissection. Internal carotid arteries: Mild calcification of the origin without significant stenosis bilaterally. No occlusion or dissection. External carotid arteries: Patent Vertebral arteries: Heavy calcification of the origin of the bilateral vertebral arteries without per ceptible lumen, however proximal segments of both vertebral arteries are normally enhancing. Angiogram head: ICA: No stenosis, occlusion or aneurysm. Calcified intracranial segments without significant stenosis . MCA: No stenosis, occlusion or aneurysm. KISHOR: No stenosis, occlusion or aneurysm. MANUFACTURING SUPPORT ENGINEER: No stenosis, occlusion or aneurysm. Basilar artery: No stenosis, occlusion or aneurysm. Distal vertebral arteries: No stenosis, occlusion or aneurysm. Other: Imaged lung apices are unremarkable. Redemonstrated large right thyroid mass measuring approximately 6 x 5 cm. No pathologic osseous lesions. Multilevel cervical spondylosis with prominent anterior cervical osteo phytes. Impression: 1. High-grade stenoses at the origin of the bilateral vertebral arteries with heavy calcifications a nd no perceptible lumen, however suspected partial patency due to normal enhancement of the remainder of the vertebral arteries. This also could be due to retrograde flow. 2. No significant carotid stenosis. 3. No large vessel occlusion, aneurysm or significant stenosis in the intracranial arteries. 4. Redemonstrated large right thyroid lobe mass. Findings discussed with KIMBERLY ANGELES DO at 08/13/2021 4:22 PM. FOR INTERNAL CODING PURPOSES RESULT CODE: (C) Exposure: One or more of the following individualized dose reduction techniques were utilized for thi s examination: 1. Automated exposure control 2. Adjustment of the mA and/or kV according to patient size 3. Use of iterative reconstruction technique. Electronically signed by: Dakota Fields MD (08/13/2021 4:22 PM) [facility]
== END 2021-08-13 18:15 | disposition home or self-care (01) ==
LOC: ER 09:20
DX: I65.09 Occlusion and stenosis of unspecified vertebral artery (principal); E11.65 Type 2 diabetes mellitus with hyperglycemia; R41.82 Altered mental status, unspecified; F41.9 Anxiety disorder, unspecified; M19.90 Unspecified osteoarthritis, unspecified site; I25.10 Atherosclerotic heart disease of native coronary artery without angina pectoris; E78.00 Pure hypercholesterolemia, unspecified; I13.10 Hypertensive heart and chronic kidney disease without heart failure, with stage 1 through stage 4 chronic kidney disease, or unspecified chronic kidney disease; E11.22 Type 2 diabetes mellitus with diabetic chronic kidney disease; N18.9 Chronic kidney disease, unspecified; Z86.2 Personal history of diseases of the blood and blood-forming organs and certain disorders involving the immune mechanism; Z91.040 Latex allergy status; Z88.8 Allergy status to other drugs, medicaments and biological substances
CPT/HCPCS: 36415; 70450; 70496; 70498; 80053; 80307; 81001; 82947; 85025; 87086; 96361; 96374; 99285; J1815; J7030; Q9967